=== PATIENT | female | born 1945 | race Caucasian/White ===

== ENCOUNTER 2018-12-02 20:16 | Emergency (ER) | payer BC, MEDICARE ==
[~2018-12-02 20:16] MED LIST: AMA100 PO; ARIP30TA10 PO; BENZ1 PO; BUSP30TA18 PO; CALC-965 PO; CALC600T63 PO; LISI20TA29 PO; MIRT-25 PO; TRAM-627 PO; VENL150T10 PO; VENL75TA98 PO
--- NOTE | 2018-12-02 20:22 | ER Report ---
History and Physical Time Seen By MD: 20:21 HPI/ROS CHIEF COMPLAINT: Depression HISTORY OF PRESENT ILLNESS: 73-year-old female came in by private vehicle from [facility]. She lives in [facility]. She has a history of depression and is on Abilify and Effexor. Patient's managed by telemedicine psychiatrist at a [place]. Patient's brought in by her with 3-4 days of paralyzing depression. She gets out of bed, but sits in a chair all day, has no desire to do anything. Is quite withdrawn. She denies actual suicidal ideation or plan. There is some reports of misuse of her Abilify. Patient, when asked states she's been compliant on her medication not taking any excess or missing any doses. Patient denies drug or alcohol use. Patient has a history of a low sodium. REVIEW OF SYSTEMS: Respiratory: No cough, no dyspnea. Cardiovascular: No chest pain, no palpitations. Gastrointestinal: No vomiting, no abdominal pain. Musculoskeletal: No back pain. Allergies: Coded Allergies: bupropion (Unverified Allergy, Unknown, 12/02/18) Home Meds Reported Medications Meloxicam (MELOXICAM) 7.5 Mg Tablet, 7.5 MG PO QDAY 12/02/18 Levothyroxine Sodium (LEVOTHYROXINE SODIUM) 50 Mcg Tablet, 50 MCG PO QDAY, TAB 12/02/18 Hydrochlorothiazide (HYDROCHLOROTHIAZIDE) 25 Mg Tablet, 1 TAB PO QDAY, TAB 12/02/18 Amantadine Hcl (AMANTADINE) 100 Mg Capsule, 100 MG PO QHS, CAPSULE 10/20/16 Venlafaxine Hcl (VENLAFAXINE HCL ER) 150 Mg Tab.er.24, 150 MG PO QDAY 03/17/14 Buspirone Hcl (BUSPIRONE HCL) 30 Mg Tablet, 30 MG PO TID, #10 TAB TAKE 1 TABLET BY MOUTH TWICE A DAY 03/17/14 Lisinopril (LISINOPRIL) 20 Mg Tablet, 20 MG PO QDAY 03/17/14 Aripiprazole (ABILIFY) 30 Mg Tablet, 20 MG PO QDAY, #10 TAB TAKE 1 TABLET BY MOUTH DAILY 03/17/14 Mirtazapine (MIRTAZAPINE) 30 Mg Tablet, 45 MG PO HS 03/17/14 Discontinued Reported Medications Calcium Carbonate (CALCIUM) 600 Mg Tablet, 600 MG PO QDAY 10/20/16 Calcium Carbonate/Vitamin D3 (CALCIUM 1,000 + D3 CAPLET) 1 Each Tablet, 1 PO 10/20/16 Past Medical/Surgical History Depression, arthritis, hypothyroidism, hypertension Reviewed Nurses Notes: Yes Old Medical Records Reviewed: Yes Hx Smoking: Yes Smoking Status: Former Smoker Hx Substance Use Disorder: No Hx Alcohol Use: No Constitutional Vital Sign - Last 24 Hours 12/02/18 12/02/18 12/02/18 12/02/18 20:16 20:33 20:35 20:46 Temp 98.7 Pulse ??? 108 104 Resp 18 B/P (MAP) 158/98 (118) 158/98 Pulse Ox 91 91 O2 Delivery Room Air 12/02/18 12/02/18 12/02/18 12/02/18 21:00 21:16 21:30 22:16 Pulse 104 96 B/P (MAP) 153/93 (113) 147/91 (109) Pulse Ox 91 95 12/02/18 12/02/18 12/02/18 12/02/18 22:30 22:46 23:00 23:16 Pulse 96 97 B/P (MAP) 143/93 (110) 147/90 (109) Pulse Ox 96 96 Physical Exam General Appearance: The patient is alert, has no immediate need for airway protection and no current signs of toxicity. Withdrawn, quiet HEENT: Pupils equal and round no injection. TMs normal, oropharynx without redness or exudate Respiratory: Chest is non tender, lungs are clear to auscultation. Cardiac: regular rate and rhythm Gastrointestinal: Abdomen is soft and non tender, no masses, bowel sounds normal. Musculoskeletal: Neck: Neck is supple and non tender. Extremities have full range of motion and are non tender. Skin: No rashes or lesions. DIFFERENTIAL DIAGNOSIS: After history and physical exam differential diagnosis was considered for depression including functional and major depression, situational depression, medication side effect, drugs and alcohol abuse. Medical Decision Making Data Points Result Diagram: 12/02/18211112/02/182111 Laboratory Hematology Test 12/02/18 21:12 12/03/18 00:05 Red Blood Count 5.04 M/uL (4.17-5.56) Mean Corpuscular Volume 82.6 fL (80.0-96.0) Mean Corpuscular Hemoglobin 28.6 pg (26.0-33.0) Mean Corpuscular Hemoglobin Concent 34.6 g/dL (32.0-36.0) Red Cell Distribution Width 14.2 % (11.5-14.5) Mean Platelet Volume 7.9 fL (7.2-11.1) Neutrophils (%) (Auto) 67.0 % (39.4-72.5) Lymphocytes (%) (Auto) 17.5 % (17.6-49.6) Monocytes (%) (Auto) 14.5 % (4.1-12.4) Eosinophils (%) (Auto) 0.4 % (0.4-6.7) Basophils (%) (Auto) 0.6 % (0.3-1.4) Nucleated RBC Relative Count (auto) 0.1 /100WBC Neutrophils # (Auto) 7.8 K/uL (2.0-7.4) Lymphocytes # (Auto) 2.0 K/uL (1.3-3.6) Monocytes # (Auto) 1.7 K/uL (0.3-1.0) Eosinophils # (Auto) 0.0 K/uL (0.0-0.5) Basophils # (Auto) 0.1 K/uL (0.0-0.1) Nucleated RBC Absolute Count (auto) 0.01 K/uL Sodium Level 124 mmol/L (137-145) Potassium Level 3.9 mmol/L (3.5-5.0) Chloride Level 87 mmol/L (98-107) Carbon Dioxide Level 23 mmol/L (22-31) Blood Urea Nitrogen 14 mg/dl (7-18) Creatinine 1.00 mg/dl (0.52-1.04) Glomerular Filtration Rate Calc 54.7 Random Glucose 118 mg/dl (75-110) Calcium Level 9.6 mg/dl (8.4-10.2) Magnesium Level 1.5 mg/dl (1.7-2.2) Total Bilirubin 0.5 mg/dl (0.2-1.3) Aspartate Amino Transf (AST/SGOT) 19 U/L (0-35) Alanine Aminotransferase (ALT/SGPT) 21 U/L (0-56) Alkaline Phosphatase 73 U/L (0-126) Total Protein 8.0 g/dl (6.3-8.2) Albumin 4.7 g/dl (3.5-5.0) Salicylates Level < 10 mg/L Salicylate Last Dose Date unk Acetaminophen Level < 10 ug/ml Serum Alcohol < 10 mg/dl Urine Color Yellow Urine Clarity Cloudy Urine pH 6.0 pH (4.8-9.5) Urine Specific [place] 1.016 Urine Protein 30 mg/dL (NEGATIVE) Urine Glucose (UA) Negative mg/dL (NEGATIVE) Urine Ketones 20 mg/dL (NEGATIVE) Urine Blood Large (NEGATIVE) Urine Nitrite Negative (NEGATIVE) Urine Bilirubin Negative (NEGATIVE) Urine Urobilinogen 0.2 mg/dL (0.2-1.9) Urine Leukocyte Esterase Large (NEGATIVE) Urine RBC 307 /HPF (0-2/HPF) Urine WBC 450 /HPF (0-5/HPF) Urine WBC Clumps Many /HPF Urine Squamous Epithelial Cells Many /LPF (</=FEW) Urine Transitional Epithelial Cells Many /LPF (NONE-FEW) Urine Bacteria Negative /HPF (NONE-FEW) Urine Mucus Few /HPF (NONE-FEW) Urine Opiates Screen Negative Urine Barbiturates Screen Negative Ur Tricyclic Antidepressants Screen Negative Urine Phencyclidine Screen Negative Urine Amphetamines Screen Negative Urine Benzodiazepines Screen Negative Urine Cocaine Screen Negative Urine Cannabinoids Screen Negative Chemistry Test 12/02/18 21:12 12/03/18 00:05 White Blood Count 11.7 k/uL (4.5-11.0) Red Blood Count 5.04 M/uL (4.17-5.56) Hemoglobin 14.4 g/dL (12.0-16.0) Hematocrit 41.6 % (34.0-47.0) Mean Corpuscular Volume 82.6 fL (80.0-96.0) Mean Corpuscular Hemoglobin 28.6 pg (26.0-33.0) Mean Corpuscular Hemoglobin Concent 34.6 g/dL (32.0-36.0) Red Cell Distribution Width 14.2 % (11.5-14.5) Platelet Count 213 K/uL (150-450) Mean Platelet Volume 7.9 fL (7.2-11.1) Neutrophils (%) (Auto) 67.0 % (39.4-72.5) Lymphocytes (%) (Auto) 17.5 % (17.6-49.6) Monocytes (%) (Auto) 14.5 % (4.1-12.4) Eosinophils (%) (Auto) 0.4 % (0.4-6.7) Basophils (%) (Auto) 0.6 % (0.3-1.4) Nucleated RBC Relative Count (auto) 0.1 /100WBC Neutrophils # (Auto) 7.8 K/uL (2.0-7.4) Lymphocytes # (Auto) 2.0 K/uL (1.3-3.6) Monocytes # (Auto) 1.7 K/uL (0.3-1.0) Eosinophils # (Auto) 0.0 K/uL (0.0-0.5) Basophils # (Auto) 0.1 K/uL (0.0-0.1) Nucleated RBC Absolute Count (auto) 0.01 K/uL Glomerular Filtration Rate Calc 54.7 Calcium Level 9.6 mg/dl (8.4-10.2) Magnesium Level 1.5 mg/dl (1.7-2.2) Total Bilirubin 0.5 mg/dl (0.2-1.3) Aspartate Amino Transf (AST/SGOT) 19 U/L (0-35) Alanine Aminotransferase (ALT/SGPT) 21 U/L (0-56) Alkaline Phosphatase 73 U/L (0-126) Total Protein 8.0 g/dl (6.3-8.2) Albumin 4.7 g/dl (3.5-5.0) Salicylates Level < 10 mg/L Salicylate Last Dose Date unk Acetaminophen Level < 10 ug/ml Serum Alcohol < 10 mg/dl Urine Color Yellow Urine Clarity Cloudy Urine pH 6.0 pH (4.8-9.5) Urine Specific [place] 1.016 Urine Protein 30 mg/dL (NEGATIVE) Urine Glucose (UA) Negative mg/dL (NEGATIVE) Urine Ketones 20 mg/dL (NEGATIVE) Urine Blood Large (NEGATIVE) Urine Nitrite Negative (NEGATIVE) Urine Bilirubin Negative (NEGATIVE) Urine Urobilinogen 0.2 mg/dL (0.2-1.9) Urine Leukocyte Esterase Large (NEGATIVE) Urine RBC 307 /HPF (0-2/HPF) Urine WBC 450 /HPF (0-5/HPF) Urine WBC Clumps Many /HPF Urine Squamous Epithelial Cells Many /LPF (</=FEW) Urine Transitional Epithelial Cells Many /LPF (NONE-FEW) Urine Bacteria Negative /HPF (NONE-FEW) Urine Mucus Few /HPF (NONE-FEW) Urine Opiates Screen Negative Urine Barbiturates Screen Negative Ur Tricyclic Antidepressants Screen Negative Urine Phencyclidine Screen Negative Urine Amphetamines Screen Negative Urine Benzodiazepines Screen Negative Urine Cocaine Screen Negative Urine Cannabinoids Screen Negative Toxicology Test 12/02/18 21:12 12/03/18 00:05 Salicylates Level < 10 mg/L Salicylate Last Dose Date unk Acetaminophen Level < 10 ug/ml Serum Alcohol < 10 mg/dl Urine Opiates Screen Negative Urine Barbiturates Screen Negative Ur Tricyclic Antidepressants Screen Negative Urine Phencyclidine Screen Negative Urine Amphetamines Screen Negative Urine Benzodiazepines Screen Negative Urine Cocaine Screen Negative Urine Cannabinoids Screen Negative Urinalysis Test 12/03/18 00:05 Urine Color Yellow Urine Clarity Cloudy Urine pH 6.0 pH (4.8-9.5) Urine Specific [place] 1.016 Urine Protein 30 mg/dL (NEGATIVE) Urine Glucose (UA) Negative mg/dL (NEGATIVE) Urine Ketones 20 mg/dL (NEGATIVE) Urine Blood Large (NEGATIVE) Urine Nitrite Negative (NEGATIVE) Urine Bilirubin Negative (NEGATIVE) Urine Urobilinogen 0.2 mg/dL (0.2-1.9) Urine Leukocyte Esterase Large (NEGATIVE) Urine RBC 307 /HPF (0-2/HPF) Urine WBC 450 /HPF (0-5/HPF) Urine WBC Clumps Many /HPF Urine Squamous Epithelial Cells Many /LPF (</=FEW) Urine Transitional Epithelial Cells Many /LPF (NONE-FEW) Urine Bacteria Negative /HPF (NONE-FEW) Urine Mucus Few /HPF (NONE-FEW) ED Course/Re-evaluation ED Course Patient was admitted to an examination room. H&P was done. The differential diagnoses was considered. Patient with severe profound depression. Brought in by her from [place]. Patient requesting admission to [facility] for her depression. Patient's sodium is low at 124. She has a history of a low sodium likely secondary to her HCTZ. Patient's Urinalysis shows infection. 12/02/2018 10:12:22 pm case was discussed with Valarie Botello nurse practitioner a behavioral health service who accepts the patient for admission. Decision to Disposition Date: Dec 02, 2018 Decision to Disposition Time: 21:44 Depart Departure Latest Vital Signs Vital Signs Date Time Temp Pulse Resp B/P (MAP) Pulse Ox O2 Delivery O2 Flow Rate FiO2 12/02/18 23:16 97 96 12/02/18 23:00 147/90 (109) 12/02/18 20:35 98.7 18 Room Air Impression: Primary Impression: Severe depression Additional Impressions: Hyponatremia Hypertension Hypothyroidism Osteoarthritis Urinary tract infection Condition: Improved Disposition: XFER TO [facility] Problem Qualifiers Additional Impressions: Hypertension Hypertension type: essential hypertension Qualified Codes: I10 - Essential (primary) hypertension Hypothyroidism Hypothyroidism type: unspecified Qualified Codes: E03.9 - Hypothyroidism, unspecified Osteoarthritis Osteoarthritis location: unspecified site Osteoarthritis type: primary Qualified Codes: M19.91 - Primary osteoarthritis, unspecified site Urinary tract infection Urinary tract infection type: acute cystitis Hematuria presence: without hematuria Qualified Codes: N30.00 - Acute cystitis without hematuria KEVIN ZAMORA DO Dec 02, 2018 20:22
[2018-12-02] MEDS ORDERED: HYDR-2966 PO (20:28)
[2018-12-02] MEDS ORDERED: MELO-205 PO (20:28)
[2018-12-02] MEDS ORDERED: LEVO50TA86 PO (20:28)
[2018-12-02 21:28] LABS: PLATELET COUNT, AUTOMATED 213 K/uL (150-450)
[2018-12-02 23:00] VITALS: BP 147/90
== END 2018-12-03 00:07 ==
LOC: ER 20:28
DX: F32.9 Major depressive disorder, single episode, unspecified (principal); E87.1 Hypo-osmolality and hyponatremia; I10 Essential (primary) hypertension; E03.9 Hypothyroidism, unspecified; M19.91 Primary osteoarthritis, unspecified site; N30.00 Acute cystitis without hematuria
CPT/HCPCS: 36415; 80305; 81001; 83735; 84443; 85025; 99284; G0480; 80320; 80329; 82040; 82247; 82310; 82374; 82435; 82565; 82947; 84075; 84132; 84155; 84295; 84450; 84460; 84520

== ENCOUNTER 2018-12-02 22:15 | Inpatient (IN) | payer BC, MEDICARE ==
[~2018-12-02] VITALS: Ht 162.6 cm; Wt 68.0 kg
[~2018-12-02 22:15] MED LIST changes: +HYDR-2966 PO; +LEVO50TA86 PO; +MELO-205 PO
[2018-12-02] MEDS ORDERED: ACETAMINOPHEN 325 MG TAB PO PRN (23:30)
[2018-12-02] MEDS ORDERED: MAG HYD/AL HYD/SIMETH 30ML UDC PO PRN (23:30)
[2018-12-03 02:33] VITALS: BP 147/93
[2018-12-03] MEDS: LEVOTHYROXINE SOD 0.05 MG TAB PO SCH (05:24)
[2018-12-03 06:40] LABS: PLATELET COUNT, AUTOMATED 210 K/uL (150-450)
--- NOTE | 2018-12-03 07:30 | Miscellaneous Provider Note ---
Miscellaneous Provider Note Note Asked to review labs (UA and sodium) by Valarie HERRERA. She appears to have UTI. Will have lab culture the urine and empirically start Cipro 250mg one PO BID for 3 days. She also has sodium of 122. She has been on a diuretic, which would be the initial most likely cause. Would recommend stopping the HCTZ and using el ectrolyte replacement fluid such as Gatorade or Pedialyte. Recheck BMP in 12-24 hours. If persistently low, may need to consider possible SIADH related to her FLEXIBLE NANNY active medications. NASREEN CALLES MD Dec 03, 2018 07:30
[2018-12-03] MEDS: CIPROFLOXACIN 500 MG TAB PO SCH ×2 (08:51→16:31)
[2018-12-03] MEDS: MULTIVITAMINS TAB PO SCH (09:00)
[2018-12-03] MEDS ORDERED: VENLAFAXINE REG 75 MG TAB PO ONE (12:50)
[2018-12-03 13:00] VITALS: BP 142/100
[2018-12-03] MEDS: LISINOPRIL 20 MG TAB PO SCH (13:43)
[2018-12-03] MEDS: ARIPiprazole 10 MG TAB PO SCH (13:43)
[2018-12-03] MEDS: busPIRone HCL 5 MG TAB PO SCH ×2 (13:43→20:59)
[2018-12-03] MEDS: MELOXICAM 7.5 MG TAB PO SCH (15:44)
--- NOTE | 2018-12-03 16:39 | EKG ---
FACILITY: [facility] - [place], [place] PATIENT NAME: ROSALIO ROSAS : [id number] MR: [id number] V: [id number] EXAM DATE: ORDERING PHYSICIAN: ELPIDIO ELDRIDGE TECHNOLOGIST: Test Reason : Critical NA Blood Pressure : / mmHG Vent. Rate : 093 BPM Atrial Rate : 093 BPM P-R Int : 174 ms QRS Dur : 092 ms QT Int : 366 ms P-R-T Axes : 068 053 063 degrees QTc Int : 455 ms Sinus rhythm No acute appearing findings Confirmed by NASREEN CALLES ([id number] on 12/03/2018 6:03:57 PM Referred By: Confirmed By:NASREEN CALLES
[2018-12-03 16:42] VITALS: BP 138/90
[2018-12-03] MEDS ORDERED: AMANTADINE HCL 100 MG CAP PO SCH (21:00)
[2018-12-03] MEDS ORDERED: MIRTAZAPINE 15 MG TAB PO SCH (21:00)
[2018-12-03] MEDS ORDERED: traZODone HCL 50 MG TAB PO SCH (21:00)
--- NOTE | 2018-12-04 02:46 | ROMSA H&P ---
DATE OF ADMISSION: December 02, 2018 DATE OF INITIAL PSYCHIATRIC INTERVIEW: December 03, 2018, at approximately 11 a.m. ATTENDING PROVIDER Valarie Botello, Psychiatric Mental Health Nurse Practitioner PRESENTING PROBLEM/CHIEF COMPLAINT "I'm just sad." HISTORY OF PRESENT ILLNESS This patient is a 73-year-old female who came in to the emergency department by private vehicle from [place], [place], having been brought in by her of nine years. She has a known history of depression and is currently managed psychiatrically by Dr. Rausch, whom she sees through telemedicine out of [place], [place]. Her spouse states that she has been on psychiatric medications approximately 20 [address] Rausch for approximately the last nine years. Per emergency room documentation, patient was brought in by her due to three to four days of "paralyzing depression." Spouse reports that she gets out of bed but sits in a chair all day, has no desire to do anything, and is quite withdrawn. She has denied suicidal ideation or plans. Patient is also hyponatremic in the emergency department and has a history of low sodium as well as hypothyroidism and hypertension. At the time of initial interview, patient is oriented to person and place. She is disoriented to date and situation. Patient is unable to rate her depression, although states, "I'm just sad." She is tearful and appears afraid during her initial interview. When asked about anxiety, she states, "It's what I'm going through." She denies pain. She reports that her sleep is sufficient. She denies nightmares, denies history of staying up for days on end with impulsive behavior. She denies history of hearing or seeing things, denies history of paranoia. Her states that she normally sleeps eight to 10 hours without interruption. He reports that she has been prescribed Venlafaxine, BuSpar, Abilify, and Mirtazapine most recently. He states that he does offer some assistance with her medications, although she primarily takes them independently. There was some documentation from the emergency room that she has possibly misused her Abilify. Patient and also her spouse deny this. When asked about what medication she is taking, patient states she is not sure. This provider does have phone consultation with spouse following initial interview with patient, ZULMA has been signed, and it is encouraged that a medication box would be set up and that he would manage administering her medications during this state of confusion. Patient's spouse said that at times she can become confused at home, but it is not typical for her to be confused. Patient and her are both retired and live in a home in [place], [place], together. Patient is agreeable with a voluntary admission for further evaluation and treatment on the Behavioral Health Unit. MENTAL HEALTH HISTORY The patient has never been an inpatient on the psychiatric unit. She denies history of self-harm behaviors or suicide attempts. Patient's spouse states that she is a "devout Taoism" and does not agree with anyone harming themselves in any way. Spouse reports that she has a 20-year history of taking psychotropics. She is currently taking venlafaxine 150 mg, one p.o. daily; BuSpar 30 mg twice daily; Abilify 30 mg, one p.o. daily and Mirtazapine 45 mg po every pm. She is also prescribed levothyroxine 50 mcg, one p.o. daily; hydrochlorothiazide 25 mg p.o. daily, which she has been discouraged to continue due to her hyponatremia; amantadine 100 mg, one p.o. at bedtime, as well as meloxicam 7.5 mg, one p.o. daily. She has been engaged with psychiatric medication management through [facility] out of [place], [place]. She is seen through a [facility]. She is currently not engaged in individual psychotherapy. She denies history of counseling. FAMILY PSYCHIATRIC HISTORY Uncertain of. Spouse denies knowledge of any family psychiatric history. PAST MEDICAL HISTORY Significant for appendectomy, total hysterectomy, tonsillectomy. No history of seizures, head injuries, or other major health concerns. She is currently taking antihypertensives with known history of hypertension, hypothyroidism, and arthritis. Current hyponatremia and previous history as well. SOCIAL HISTORY The patient is currently living in [place], [place], with her of nine years, whose name is Yonatan. She is assigned a release of information in order that communication can be completed with him, and she is agreeable to this. She has been to her current , Yonatan, for nine years. She was previously and . She has one son living in [place] she reports she has no contact with, although the spouse reports they frequently visit. She has one sister living in [place], one sister living in [place]. She was born in [place], [place]. Her parents were at the time of her and later . Her mother is still alive and living in [place]. She is 89 years old, and spouse reports she remains quite active. 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 Her is retired from the [employer] in 2009, and he assists at times with her medications. She reports she had a good childhood free of abuse. LEGAL HISTORY She denies. SUBSTANCE ABUSE HISTORY Patient denies that she is a smoker. She rarely drinks alcohol, denies use of illicit substances now or in the past. PHYSICAL EXAMINATION Please see emergency room notes for physical exam. Vital signs at time of admission including temperature 97.6, pulse 98, respiratory rate 15, blood pressure 147/93, pulse oximetry 98% on room air. LABORATORY DATA CBC within normal limits. Lymphocyte percent 17.3, low; monocyte percent elevated, 16.8. Chemistry panel with critical sodium of 122, critical chloride of 85, random glucose 117, magnesium 1.8. Initial emergency room triage sodium of 124. Thyroid stimulating hormone is pending. Urine screen cloudy, high amounts of ketone at 20, large amount of leukocyte esterase, many squamous epithelial cells, many transition epithelial cells, negative for bacteria, few mucus. Toxicology includes salicylate, acetaminophen, serum alcohol levels less than 10. Urine screen negative for opiates, barbiturates, tricyclics, phencyclidine, amphetamines, benzodiazepines, cocaine and cannabinoids. MENTAL STATUS EXAMINATION GENERAL APPEARANCE, BEHAVIOR AND ATTITUDE: Patient is anxious and tearful at time of initial interview. She is able to independently ambulate with minimal assist to the treatment team room for interview. She appears slightly disheveled and fearful. SPEECH: Soft-spoken. Limited responses. Regular rate and tone. MOOD: Depressed. AFFECT: Slightly constricted, mood-congruent. THOUGHT PROCESSES: Fairly logical, able to respond. Limited responses. No flight of ideas. THOUGHT CONTENT: Free of auditory or visual hallucinations, ideas of reference, thought broadcasting, delusions, obsessions or compulsions. Patient denying suicidal or homicidal ideations. SENSORIUM: Clear. COGNITION: Alert and oriented to person, place; disoriented to time and situation. MEMORY: Immediate, recent and remote slightly impaired. Patient gives partially accurate history with some conflicting answers compared to her spouse's history. She is unable to remember what circumstances brought her to the emergency department. INTELLIGENCE: Average, based on interview. INSIGHT AND JUDGMENT: Considered limited, as patient unable to remember circumstances which warranted her spouse driving her to the emergency room for evaluation. ASSESSMENT This is a 73-year-old female who was brought by private vehicle to the emergency room from [place], [place], where she lives with her of nine years. He reports that he brought her to the emergency room "mostly for medical concerns, because I didn't think the meds were working good." He reports that she has had lack of energy and has become more depressed during the last week. He assist wit her medication administration at times, although primarily she takes these medications independently. It is encouraged that she have assistance with her medications, as she is unable to report to this provider what she takes or for what health condition. She is managed psychiatrically by a [facility] out of [place], [place], seen at a [facility]. She is managed for medical conditions by a Dr. Amador, whom she has seen in [place], [place], with a history of hypothyroidism and hypertension. It is thought that her hydrochlorothiazide could be contributing to her hyponatremia. The hospitalist was consulted regarding her hyponatremia, with recommendation of discontinuing hydrochlorothiazide and encouraging Gatorade. We will also obtain culture and sensitivity on her urine, and she was started on antibiotics by the hospitalist of ciprofloxacin 250 mg, one p.o. daily for suspected urinary tract infection. DIAGNOSES PER DSM-V 1. Major depressive disorder, recurrent, moderate to severe. 2. Rule out delirium secondary to current urinary tract infection. 3. Hyponatremia. PLAN 1. Will admit to the unit. 2. Necessary precautions will be implemented. 3. Individual and group therapy to be initiated. 4. Medications will be administered and titrated accordingly. 5. Further labs and imaging as appropriate. 6. Estimated length of stay three to five days. 7. Hospitalist was consulted regarding her hyponatremia and urinary tract infection with recommendations provided. 8. Continue to obtain collateral information from spouse with ongoing discharge planning regarding safety of medication administration and psychiatric medication management followup through her outpatient providers. 9. We will maintain fall precautions and close monitoring of her laboratory data, vital signs, and evaluate current psychiatric medications. [facility]
[2018-12-04 05:56] VITALS: BP 124/89
[2018-12-04] MEDS: LEVOTHYROXINE SOD 0.05 MG TAB PO SCH (06:00)
[2018-12-04] MEDS ORDERED: LEVOTHYROXINE SOD 0.05 MG TAB PO SCH (06:00)
[2018-12-04 06:18] LABS: PLATELET COUNT, AUTOMATED 214 K/uL (150-450)
[2018-12-04] MEDS: CIPROFLOXACIN 500 MG TAB PO SCH (07:55)
[2018-12-04] MEDS: ARIPiprazole 10 MG TAB PO SCH (08:42)
[2018-12-04] MEDS: MELOXICAM 7.5 MG TAB PO SCH (08:42)
[2018-12-04] MEDS: MULTIVITAMINS TAB PO SCH (08:42)
[2018-12-04] MEDS: busPIRone HCL 5 MG TAB PO SCH (08:42)
[2018-12-04] MEDS: LISINOPRIL 20 MG TAB PO SCH (08:42)
[2018-12-04] MEDS ORDERED: SODIUM CHLORIDE 1 GR TAB PO SCH (09:00)
[2018-12-04] MEDS ORDERED: VENLAFAXINE REG 75 MG TAB PO SCH (09:00)
[2018-12-04 10:01] VITALS: BP 138/90
[2018-12-04 13:45] VITALS: BP 159/94
--- NOTE | 2018-12-04 13:57 | BHS Discharge Summary ---
[facility] Discharge Summary Iiic-hk-Kvrb Encounter Date: Dec 04, 2018 Mwpw-[id number]-[id number] Encounter Time: 10:00 Reason-Hosp/Final Diag (DSM-V): (1) Hyponatremia Status: Acute Hospital Course & Plan: Pt was admitted voluntarily to [facility] for depression-- said for past several weeks she would just sit and stare all day. Pt does have hx of depression and as outpatient she was taking venlafaxine, buspirone, abilify, amantadine, mirtazapine, as well as HCTZ and lisinopril. On admission her Na was low at 124, and over a day and a half it dropped to 113. We were in touch with Medicine service throughout, and she was transferred semi- urgently to ICU per Dr. Carbone due to hyponatremia. 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 Of note, reported that about 6 years ago as outpatient she had a similar episode of hyponatremia, treated by water restriction-- he says that at that time she had a similar altered mental status as well. Physical Exam Latest Vital Signs Vital Signs 12/03/18 12/04/18 12/04/18 16:42 10:01 13:29 Temp 97.9 Pulse 84 Resp 18 B/P (MAP) 138/90 (106) Pulse Ox 98 O2 Delivery Room Air Mental Status Exam General Appearance: Casual, Good Eye Contact, Cooperative, Polite, Good Interaction Speech: Clear, Spontaneous, Normal Rate, Normal Tone Mood: Dysthmic/Depressed Affect: Calm, Flat Thought Process: Organized, Logical, Goal Directed Thought Content: No Suicidal Ideation, No Homicidal Ideation, No Delusions, No Auditory Halllucinations, No Visual Hallucinations, No Thought Broadcasting, No Ideas of Reference, No Obsessions, No Compulsions, No Other Sensorium: Clear Cognition: Alert & Oriented-Person, Alert & Oriented-Place; No Alert & Issa ented-Time, No Egwlx-Tcikoilx-Pvxzckdur, No Other Memory: Remote Intelligence: Average Insight Judgment: Fair Departure Result Diagram: 12/04/18 0551 12/04/18 5343 Condition: No Change Discharge to: Other Facility (to [facility]) Discharge Instructions Home Meds Reported Medications Meloxicam (MELOXICAM) 7.5 Mg Tablet, 7.5 MG PO QDAY 12/02/18 Levothyroxine Sodium (LEVOTHYROXINE SODIUM) 50 Mcg Tablet, 50 MCG PO QDAY, TAB 12/02/18 Hydrochlorothiazide (HYDROCHLOROTHIAZIDE) 25 Mg Tablet, 1 TAB PO QDAY, TAB 12/02/18 Amantadine Hcl (AMANTADINE) 100 Mg Capsule, 100 MG PO QHS, CAPSULE 10/20/16 Venlafaxine Hcl (VENLAFAXINE HCL ER) 150 Mg Tab.er.24, 150 MG PO QDAY 03/17/14 Buspirone Hcl (BUSPIRONE HCL) 30 Mg Tablet, 30 MG PO TID, #10 TAB TAKE 1 TABLET BY MOUTH TWICE A DAY 03/17/14 Lisinopril (LISINOPRIL) 20 Mg Tablet, 20 MG PO QDAY 03/17/14 Aripiprazole (ABILIFY) 30 Mg Tablet, 20 MG PO QDAY, #10 TAB TAKE 1 TABLET BY MOUTH DAILY 03/17/14 Mirtazapine (MIRTAZAPINE) 30 Mg Tablet, 45 MG PO HS 03/17/14 Discontinued Reported Medications Calcium Carbonate (CALCIUM) 600 Mg Tablet, 600 MG PO QDAY 10/20/16 Calcium Carbonate/Vitamin D3 (CALCIUM 1,000 + D3 CAPLET) 1 Each Tablet, 1 PO 10/20/16 Multpiple Antipsychotics Used: No Diet: Regular Activity: As Tolerated Special Instructions: Transfer to Intensive Care Unit at [facility] for Critically Low Sodium/Hyponatremia. CLAIRE PALACIOS MD Dec 04, 2018 13:57
== END 2018-12-04 14:38 | disposition still patient (30) | DRG 885 ==
LOC: UNDOADMIN 22:15 → BHS 22:15
PROVIDERS: ADMIT Nurse Practitioner Psychiatric/Mental Health; ATTEND Nurse Practitioner Psychiatric/Mental Health
DX: F33.2 Major depressive disorder, recurrent severe without psychotic features (principal); E22.2 Syndrome of inappropriate secretion of antidiuretic hormone; R45.851 Suicidal ideations; N30.00 Acute cystitis without hematuria; E03.9 Hypothyroidism, unspecified; I10 Essential (primary) hypertension; T50.2X5A Adverse effect of carbonic-anhydrase inhibitors, benzothiadiazides and other diuretics, initial encounter; Z90.710 Acquired absence of both cervix and uterus; Z88.8 Allergy status to other drugs, medicaments and biological substances
CPT/HCPCS: 36415; 81001; 82040; 82247; 82310; 82374; 82435; 82565; 82947; 83735; 83935; 84075; 84132; 84155; 84295; 84300; 84450; 84460; 84520; 85025; 87077; 87088; 87186; 93005; G9017

== ENCOUNTER 2018-12-04 14:38 | Inpatient (IN) | payer BC, MEDICARE ==
[2018-12-04] VITALS (8 sets, daily range): BP systolic 134–150; BP diastolic 87–123
[~2018-12-04] VITALS: Ht 154.9 cm; Wt 93.5 kg
[2018-12-04] MEDS ORDERED: NS 3% 500 ML BAG 100 ML IV ONE (16:30)
--- NOTE | 2018-12-04 16:36 | History & Physical ---
History of Present Illness History of Present Illness 73yo female with a h/o hyponatremia and depression who sent from [facility] for a low sodium. She was admitted to [facility] on the evening of 12/02 for 3-4 days of severe depression. She, reportedly, had a low sodium about 6 years ago and had be be treated with water restriction. She altered mental status at the time. She then has had low sodium since then, but it is unclear what the values have been. It is unclear if she is on any new medication as an outpatient. Her sodium on admission was 124 and it has steadily decreased. This morning it was 120, then 7 hours later it went down to 113. She denies n/v/vision changes/diarrhea/cp/sob/chills/dizziness. She is more confused this morning per Dr. Andrea. The patient was started on Ciprofloxacin on 12/03 for a UTI and has received 3 doses. Her usual medications of venlafaxine, BuSpar, Abilify, and mirtazapine were continued, but HCTZ was stopped. There were no reports of excessive water intake while on [facility]. History Problems: (1) History of appendectomy (2) History of hysterectomy (3) Severe depression Status: Acute (4) Hypertension Status: Chronic (5) Hypothyroidism Status: Acute Home Meds Reported Medications Levothyroxine Sodium (LEVOTHYROXINE SODIUM) 50 Mcg Tablet, 50 MCG PO QDAY, TAB 12/02/18 Lisinopril (LISINOPRIL) 20 Mg Tablet, 20 MG PO QDAY 03/17/14 Discontinued Reported Medications Meloxicam (MELOXICAM) 7.5 Mg Tablet, 7.5 MG PO QDAY 12/02/18 Hydrochlorothiazide (HYDROCHLOROTHIAZIDE) 25 Mg Tablet, 1 TAB PO QDAY, TAB 12/02/18 Amantadine Hcl (AMANTADINE) 100 Mg Capsule, 100 MG PO QHS, CAPSULE 10/20/16 Venlafaxine Hcl (VENLAFAXINE HCL ER) 150 Mg Tab.er.24, 150 MG PO QDAY 03/17/14 Buspirone Hcl (BUSPIRONE HCL) 30 Mg Tablet, 30 MG PO TID, #10 TAB TAKE 1 TABLET BY MOUTH TWICE A DAY 03/17/14 Aripiprazole (ABILIFY) 30 Mg Tablet, 20 MG PO QDAY, #10 TAB TAKE 1 TABLET BY MOUTH DAILY 03/17/14 Mirtazapine (MIRTAZAPINE) 30 Mg Tablet, 45 MG PO HS 03/17/14 Calcium Carbonate (CALCIUM) 600 Mg Tablet, 600 MG PO QDAY 10/20/16 Calcium Carbonate/Vitamin D3 (CALCIUM 1,000 + D3 CAPLET) 1 Each Tablet, 1 PO 10/20/16 Allergies: Coded Allergies: bupropion (Unverified Allergy, Unknown, 12/02/18) Other Social/Family Hx Lives in [place]. Is . One son. Remote tobacco hx for about 40 years. No current alcohol or illlicit drug use. Hx Smoking: No Smoking Status: Never Smoker Exposure to Second Hand Smoke?: No Hx Alcohol Use: No Hx Substance Use Disorder: No Social Drug Use: Never Review of Systems All Systems Reviewed/Normal: Yes, Except as Noted Exam General Appearance: Alert, Awake, No Acute Distress, Other (Calm. Pleasant. Cooperative.) Neuro: Other (No focal motor or sensory deficits. She knows that she is in [facility], but doesn't know year, month or why she is in the hospital.) Eyes: PERRLA ENT: Moist Mucous Membranes Cardiovascular: Regular Rate and Rhythm Respiratory: Clear to Auscultation GI: Abd Soft and Non-Tender Extremities: No Edema Integumentary: No Jaundice, No Cyanosis Medical Decision Making Data Points Item Value Date Time Sodium Level 122 mmol/L *L 12/03/18 0621 Sodium Level 120 mmol/L *L 12/04/18 0551 Sodium Level 113 mmol/L *L 12/04/18 1245 Blood Urea Nitrogen 14 mg/dl 12/03/18 0621 Creatinine 1.00 mg/dl 12/03/18 0621 Blood Urea Nitrogen 17 mg/dl 12/04/18 0551 Creatinine 1.50 mg/dl H 12/04/18 0551 Blood Urea Nitrogen 16 mg/dl 12/04/18 1245 Creatinine 1.30 mg/dl H 12/04/18 1245 Aspartate Amino Transf (AST/SGOT) 18 U/L 12/03/18 0621 Alanine Aminotransferase (ALT/SGPT) 24 U/L 12/03/18 0621 Total Bilirubin 0.6 mg/dl 12/03/18 0621 Total Bilirubin 0.6 mg/dl 12/04/18 0551 Aspartate Amino Transf (AST/SGOT) 20 U/L 12/04/18 0551 Alanine Aminotransferase (ALT/SGPT) 28 U/L 12/04/18 0551 Alkaline Phosphatase 58 U/L 12/04/18 0551 Alkaline Phosphatase 67 U/L 12/03/18 0621 White Blood Count 11.7 k/uL H 12/02/182111 White Blood Count 8.6 k/uL 12/03/18 0621 Neutrophils (%) (Auto) 67.0 % 12/02/182111 Neutrophils (%) (Auto) 64.8 % 12/03/18620 Neutrophils (%) (Auto) 60.4 % 12/04/18 0551 White Blood Count 9.2 k/uL 12/04/18 0551 Hemoglobin 14.3 g/dL 12/04/18 0551 Hemoglobin 14.7 g/dL 12/03/18620 Hemoglobin 14.4 g/dL 12/02/182111 Platelet Count 213 K/uL 12/02/182111 Platelet Count 210 K/uL 12/03/1821 Platelet Count 214 K/uL 12/04/18 0551 Serum Alcohol < 10 mg/dl 12/02/182111 Salicylates Level < 10 mg/L 12/02/182111 Acetaminophen Level < 10 ug/ml 12/02/182111 Urine Opiates Screen Negative 12/03/18 0005 Urine Barbiturates Screen Negative 12/03/18 0005 Ur Tricyclic Antidepressants Screen Negative 12/03/18 0005 Urine Phencyclidine Screen Negative 12/03/18 0005 Urine Amphetamines Screen Negative 12/03/18 0005 Urine Benzodiazepines Screen Negative 12/03/18 0005 Urine Cocaine Screen Negative 12/03/18 0005 Urine Cannabinoids Screen Negative 12/03/18 0005 Thyroid Stimulating Hormone (TSH) 2.11 uIU/ml 12/02/182111 Sodium Level 124 mmol/L *L 12/02/182111 Blood Urea Nitrogen 14 mg/dl 12/02/182111 Creatinine 1.00 mg/dl 12/02/182111 Magnesium Level 1.5 mg/dl L 12/02/182111 Total Bilirubin 0.5 mg/dl 12/02/182111 Aspartate Amino Transf (AST/SGOT) 19 U/L 12/02/182111 Alanine Aminotransferase (ALT/SGPT) 21 U/L 12/02/18 2112 Alkaline Phosphatase 73 U/L 12/02/18 2112 Urine Leukocyte Esterase Large H 12/03/18 0005 Urine Leukocyte Esterase Moderate H 12/03/18 1430 Urine RBC 10 /HPF 12/03/18 1430 Urine WBC 36 /HPF 12/03/18 1430 Urine WBC 450 /HPF 12/03/18 0005 Urine RBC 307 /HPF 12/03/18 0005 Urine Squamous Epithelial Cells Many /LPF H 12/03/18 0005 Urine Squamous Epithelial Cells Many /LPF H 12/03/18 1430 Urine Blood Large 12/03/18 0005 Urine Blood Small 12/03/18 1430 Urine Ketones 20 mg/dL H 12/03/18 1430 Urine Ketones 20 mg/dL H 12/03/18 0005 EKG / Imaging EKG Interpretation Vent. Rate : 093 BPM Atrial Rate : 093 BPM P-R Int : 174 ms QRS Dur : 092 ms QT Int : 366 ms P-R-T Axes : 068 053 063 degrees QTc Int : 455 ms Sinus rhythm No acute appearing findings Confirmed by NASREEN CALLES ([id number]) on 12/03/2018 6:03:57 PM Assessment and Plan Problems: (1) Hyponatremia Status: Acute Assessment & Plan: She presented with a sodium on 124 in the evening of 12/02. 120 this morning and then dropped to 113 in 7 hours. She was more confused today. She has been transferred to the ICU because of the severe drop in sodium. Certainly, SSRI and HCTZ are contributing, but it is unclear why she is having problems now. Will try to discuss with her about new medications. Currently, all medications have been stopped, but did receive Abilify, Buspar, Meloxicam and Ciprofloxacin this morning. Last night, she received, amantadine, Buspar, Remeron and Trazodone. She has been ordered 3% saline 100cc over about 3 hours. Seizure precautions have been instituted. BMP in about an hour and will follow sodium closely. She has been fluid restricted to 1500cc. Urine sodium, urine osmolality are pending from [facility] admission. (2) ARF (acute renal failure) Status: Acute Assessment & Plan: Creatinine was 1.0, but increased to 1.5 this morning. Creatinine decreased to 1.3 this afternoon. Possibly secondary to Mobic addition. Stop Mobic and Lisinopril and follow. (3) Severe depression Status: Acute Assessment & Plan: Pt was admitted voluntarily to [facility] for depression-- said for past several weeks she would just sit and stare all day. Pt does have hx of depression and as outpatient she was taking venlafaxine, buspirone, Abilify, amantadine, and mirtazapine. Currently, all of those medications are stopped. (4) Hypertension Status: Chronic Assessment & Plan: Chronically on lisinopril. Will hold for now because of the ARF. BP mildly elevated. Venous Thromboembolism Antithrombotics Is Pt On Any Antithrombotics?: No HEIDY WALKER MD Dec 04, 2018 16:36
[2018-12-04] MEDS ORDERED: LIDOCAINE/SOD BICARB 8.4% SYR ONE (16:57)
[2018-12-04] MEDS: MELATONIN 3 MG TAB PO SCH (21:02)
[2018-12-04] MEDS ORDERED: NS 3% IV ONE (22:10)
[2018-12-05] VITALS (12 sets, daily range): BP systolic 113–151; BP diastolic 66–87
[2018-12-05] MEDS ORDERED: NS 3% IV ONE (01:50)
[2018-12-05 05:08] LABS: PLATELET COUNT, AUTOMATED 204 K/uL (150-450)
[2018-12-05] MEDS: LEVOTHYROXINE SOD 0.05 MG TAB PO SCH (06:29)
[2018-12-05] MEDS ORDERED: NS 3% 500 ML BAG 500 ML IV ONE (08:15)
--- NOTE | 2018-12-05 08:58 | Hospitalist Progress Note ---
Subjective Progress Notes Subjective This patient was admitted for hyponatremia. She had no acute events overnight. Patient Complains of: Cardiovascular: No: Chest Pain Respiratory: No: Shortness of Breath Physical Exam Vital Signs Date Time Temp Pulse Resp B/P (MAP) Pulse Ox O2 Delivery O2 Flow Rate FiO2 12/05/18 06:00 86 24 135/83 (100) 92 Nasal Cannula 0.5 12/05/18 04:00 97.7 Intake and Output 12/05/18 07:00 Output Total 1000 ml Balance -1000 ml Output Urine Total 1000 ml # Voids 2 Neuro: No Gross deficits Cardiovascular: Regular Rate and Rhythm Respiratory: Clear to Auscultation Result Diagram: 12/05/1843612/05/18436 Assessment and Plan Problems: (1) Hyponatremia Status: Acute Assessment & Plan: Her sodium was noted to be severely low. She received a few boluses of hypertonic saline, but remains low this morning. We will start an infusion of hypertonic saline and repeat levels later today. (2) ARF (acute renal failure) Status: Acute Assessment & Plan: We have stopped her NSAID and lisinopril. (3) Severe depression Status: Acute Assessment & Plan: Pt was admitted voluntarily to [facility] for depression. [facility] once her acute medical issues have resol eunice. (4) Hypertension Status: Chronic Assessment & Plan: Her lisinopril has been stopped as above. Exam Sepsis Risk: No Definite Risk ALISSON YO DO Dec 05, 2018 08:58
--- NOTE | 2018-12-05 10:03 | Medical Nutrition Therapy ---
Nutrition Anthropometrics Height (Inches): 61.00 Height (Calculated Centimeters: 154.540386 Weight (Pounds): 206 Weight (Calculated Kilograms): 93.500 BMI: 38.9 Sameer Nutrition Score: Adequate Sameer Nutrition Risk Score: 20 Dietary Referral Nutrition Risk Factors: Nutrition Risk Comment: Physical Findings Physical Appearance: Obese BMI 30-39 Skin Appearance Skin Appearance: Edema Edema Location Modifier: Both Edema Location: Foot Type of Edema: Degree of Edema: Gastrointestinal Symptoms GI Symtoms: Tube Present: Bowel Sounds: Recent Bowel Pattern: Stool Characteristics: Nutritional Diagnosis Nutritional Risk Acuity 1: Acute/ES Renal Nutritional Acuity: 1-High Nutrition Diagnosis: Increased Nutrient Needs Nutrition Etiology: Physiological Causes Nutrition Problem/Etiology/Sym: decreased fluid needs r/t dx Hyponatremia AEB serum NA 115. Adjusted Energy Requirement Re: 1870 (20kcal/kg) Protein Requirement: 74 (.8gm/kg) Fluid Requirement: 1870 (20ml/kg) Diet Type: Fluid Restricted Nutrition Intervention: Cont diet as ordered, Encourage intake Nutrition Monitoring & Eval Nutrition Goals: Eat 75-100% Meal, Fluid Restrictions RD Patient Assessment Time: [address] Assessment Type: RD Assessment Patient Nutrition Acuity: 1-High Follow Up Date: December 08, 2018 Nutritional Comment: 12/05 Pt admitted for Hyponatremia and ARF. Na 115, alb 3.8. BUN & creatinine is now WNR. Pt is on fluid restricted diet but no intake reported at this time. Will cont to monitor and encouage intake. ELPIDIO DIEHL Dec 05, 2018 10:03
[2018-12-05] MEDS ORDERED: INFLUENZA VIRUS VAC 0.5ML SYR IM ONLY ONE (15:35)
[2018-12-05] MEDS: MELATONIN 3 MG TAB PO SCH (21:00)
[2018-12-06] VITALS (8 sets, daily range): BP systolic 104–121; BP diastolic 48–94
[2018-12-06] MEDS: LEVOTHYROXINE SOD 0.05 MG TAB PO SCH (05:37)
[2018-12-06] MEDS ORDERED: VENLAFAXINE XR 75 MG CAPCR PO SCH (09:00)
[2018-12-06] MEDS ORDERED: ARIPiprazole 10 MG TAB PO SCH (09:00)
--- NOTE | 2018-12-06 11:54 | Psychiatric Consult ---
History of Present Illness Requesting Physician Dr. Wilma Zarate Reason for Consult: Psychiatric Illness Reason for Consult hyponatremia, advice re psych meds History of Present Illness 73 y/o admitted to psychiatry for depression but found to have critically low Na and transferred to ICU, sodium now correcting and pt clinically back to baseline mental status, without depression. Pt has been maintained on psych meds for many years, including effexor, abilify, buspar, amantadine, remeron. Pt was also on HCTZ. These meds were all stopped due to low Na, we presume that SIADH was caused by medication since no other obvious source. Pt did have similar episode about 5 years ago per . Patient Refused Consult: No BHS - Subjective Progress Notes Suicidal Ideation: None Homicidal Ideation: None BHS - Objective Mental Status Exam General Appearance: Casual, Good Eye Contact, Cooperative, Polite, Good Interaction Speech: Clear, Spontaneous, Normal Rate, Normal Rhythm, Normal Volume, Normal Tone Mood: Euthymic Affect: Full and Appropriate Thought Process: Organized, Logical, Goal Directed Thought Content: No Suicidal Ideation, No Homicidal Ideation, No Delusions, No Auditory Halllucinations, No Visual Hallucinations, No Thought Broadcasting, No Ideas of Reference, No Obsessions, No Compulsions, No Other Sensorium: Clear Cognition: Alert & Oriented-Person, Alert & Oriented-Place, Alert & Oriented- Time, Bvfec-Fysygvvb-Cvepsochq Memory: Immediate, Recent, Remote Intelligence: Average Insight Judgment: Good Result Diagram: 12/05/18 0437 12/06/18 0450 [facility] Assessment and Plan Vbrx-[id number] Encounter Date: December 06, 2018 [id number] Encounter Time: 11:30 Follow Up Testing Recommended: No Problems: (1) Hyponatremia Status: Acute Treatment Recommendation: Outpatient Treatment Recommendation Details RECOMMEND KEEP HER OFF ALL PSYCH MEDS. I WILL SPEAK WITH HER OUTPATIENT PSYCHIATRIST TODAY, DR. BRIANNE BARLOW, AT [facility]. I TOLD PT AND HER TO SCHEDULE APPOINTMENT WITH HIM FOR FOLLOWUP. CLAIRE PALACIOS MD December 06, 2018 11:54
--- NOTE | 2018-12-06 14:32 | Hospitalist Depart ---
Discharge Summary Reason for Hosp/Final Diag: (1) Hyponatremia Status: Acute Hospital Course & Plan: Her sodium was noted to be severely low. She received a few boluses of hypertonic saline, but remained low. Infusion of hypertonic saline and discontinuation of SSRI improved level to 126 and her mental status improved. Her SSRI and other psychoactive medications were stopped and will need to be reevaluated by outpatient provider. (2) ARF (acute renal failure) Status: Acute Hospital Course & Plan: We stopped her NSAID and lisinopril. Cr improved. (3) Severe depression Status: Acute Hospital Course & Plan: Pt was admitted voluntarily to [facility] for depression. No signs of depression after improvement in sodium and stopping psychoactive medications recommend outpatient follow up with psychiatric provider. (4) Hypertension Status: Chronic Hospital Course & Plan: Her lisinopril has been stopped as above. BP remained well controlled. Departure Weight (Pounds): 206 Weight (Ounces): 2.1 Result Diagram: 12/05/18 0437 12/06/18 1200 Condition: Improved Discharge: Home Discharge Instructions Home Meds Reported Medications Levothyroxine Sodium (LEVOTHYROXINE SODIUM) 50 Mcg Tablet, 50 MCG PO QDAY, TAB 12/02/18 Discontinued Reported Medications Lisinopril (LISINOPRIL) 20 Mg Tablet, 20 MG PO QDAY 03/17/14 Meloxicam (MELOXICAM) 7.5 Mg Tablet, 7.5 MG PO QDAY 12/02/18 Hydrochlorothiazide (HYDROCHLOROTHIAZIDE) 25 Mg Tablet, 1 TAB PO QDAY, TAB 12/02/18 Amantadine Hcl (AMANTADINE) 100 Mg Capsule, 100 MG PO QHS, CAPSULE 10/20/16 Venlafaxine Hcl (VENLAFAXINE HCL ER) 150 Mg Tab.er.24, 150 MG PO QDAY 03/17/14 Buspirone Hcl (BUSPIRONE HCL) 30 Mg Tablet, 30 MG PO TID, #10 TAB TAKE 1 TABLET BY MOUTH TWICE A DAY 03/17/14 Aripiprazole (ABILIFY) 30 Mg Tablet, 20 MG PO QDAY, #10 TAB TAKE 1 TABLET BY MOUTH DAILY 03/17/14 Mirtazapine (MIRTAZAPINE) 30 Mg Tablet, 45 MG PO HS 03/17/14 Calcium Carbonate (CALCIUM) 600 Mg Tablet, 600 MG PO QDAY 10/20/16 Calcium Carbonate/Vitamin D3 (CALCIUM 1,000 + D3 CAPLET) 1 Each Tablet, 1 PO 10/20/16 Special Instructions: Follow up with PCP to monitor BP off antihypertensive. Follow up with psychiatric provider to monitor off psychoactive medications. Venous Thromboembolism Antithrombotics Is Pt On Any Antithrombotics?: SWATHI Gayle DO December 06, 2018 14:30
== END 2018-12-06 15:15 | disposition home or self-care (01) | DRG 644 ==
LOC: ICU 14:38
PROVIDERS: ADMIT Internal Medicine; ATTEND Internal Medicine
DX: E22.2 Syndrome of inappropriate secretion of antidiuretic hormone (principal); N17.9 Acute kidney failure, unspecified; F32.2 Major depressive disorder, single episode, severe without psychotic features; I10 Essential (primary) hypertension
CPT/HCPCS: 36415; 80305; 80320; 80329; 81001; 82040; 82247; 82310; 82374; 82435; 82565; 82947; 83735; 83930; 83935; 84075; 84132; 84155; 84295; 84300; 84443; 84450; 84460; 84520; 85025; 99284; J3490

== ENCOUNTER 2018-12-15 16:04 | Emergency (ER) | payer MEDICARE ==
--- NOTE | 2018-12-15 16:12 | ER Report ---
History and Physical Time Seen By MD: 16:12 HPI/ROS CHIEF COMPLAINT: Low salt, right upper quadrant abdominal pain HISTORY OF PRESENT ILLNESS: 73-year-old female patient presents to emergency room with complaint of low salt. Patient states that she was diagnosed with having low-salt in the past and is concerned she has again. Patient is from [place] was brought in by EMS. They were contacted by the healthcare provider that saw her in [place]. At that time they stated that she was having right upper quadrant abdominal pain. They were concerned that she may be having something going on. She denies any nausea, vomiting or diarrhea. Patient is unsure when the last time she ate was. Patient denies any abdominal pain on initial questioning. REVIEW OF SYSTEMS: Respiratory: No cough, no dyspnea. Cardiovascular: No chest pain, no palpitations. Gastrointestinal: As noted above Musculoskeletal: No back pain. Allergies: Coded Allergies: bupropion (Unverified Allergy, Unknown, 12/02/18) Home Meds Reported Medications Levothyroxine Sodium (LEVOTHYROXINE SODIUM) 50 Mcg Tablet, 50 MCG PO QDAY, TAB 12/02/18 Past Medical/Surgical History Patient has a past medical history of hypertension, asthma, back pain, hypothyroidism, depression. Patient has a surgical history of abdominal surgery, appendectomy, hysterectomy. Reviewed Nurses Notes: Yes Hx Smoking: No Smoking Status: Never Smoker Exposure to Second Hand Smoke?: No Hx Substance Use Disorder: No Hx Alcohol Use: No Constitutional Vital Sign - Last 24 Hours 12/15/18 12/15/18 12/15/18 12/15/18 16:09 16:30 16:48 17:30 Temp 98.8 Pulse 95 88 87 Resp 16 B/P (MAP) 150/102 144/84 (104) 139/81 (100) Pulse Ox 90 92 94 O2 Delivery Room Air O2 Flow Rate 2.0 12/15/18 18:00 Pulse 89 B/P (MAP) 142/88 (106) Pulse Ox 95 Physical Exam General Appearance: The patient is alert, has no immediate need for airway protection and no current signs of toxicity. Respiratory: Chest is non tender, lungs are clear to auscultation. Cardiac: regular rate and rhythm Gastrointestinal: Abdomen is soft and tender in the right upper quadrant, no masses, bowel sounds normal. Musculoskeletal: Neck: Neck is supple and non tender. Extremities have full range of motion and are non tender. Skin: No rashes or lesions. DIFFERENTIAL DIAGNOSIS: After history and physical exam differential diagnosis was considered for abdominal pain including but not limited to appendicitis, cholecystitis, gastritis and urinary tract infection. Medical Decision Making Data Points Result Diagram: 12/15/18 1621 12/15/18 1621 Laboratory Hematology Test 12/15/18 16:21 Red Blood Count 4.18 M/uL (4.17-5.56) Mean Corpuscular Volume 84.2 fL (80.0-96.0) Mean Corpuscular Hemoglobin 29.3 pg (26.0-33.0) Mean Corpuscular Hemoglobin Concent 34.7 g/dL (32.0-36.0) Red Cell Distribution Width 14.1 % (11.5-14.5) Mean Platelet Volume 7.4 fL (7.2-11.1) Neutrophils (%) (Auto) 52.4 % (39.4-72.5) Lymphocytes (%) (Auto) 30.6 % (17.6-49.6) Monocytes (%) (Auto) 15.4 % (4.1-12.4) Eosinophils (%) (Auto) 1.0 % (0.4-6.7) Basophils (%) (Auto) 0.6 % (0.3-1.4) Nucleated RBC Relative Count (auto) 0.0 /100WBC Neutrophils # (Auto) 4.6 K/uL (2.0-7.4) Lymphocytes # (Auto) 2.7 K/uL (1.3-3.6) Monocytes # (Auto) 1.4 K/uL (0.3-1.0) Eosinophils # (Auto) 0.1 K/uL (0.0-0.5) Basophils # (Auto) 0.1 K/uL (0.0-0.1) Nucleated RBC Absolute Count (auto) 0.00 K/uL Prothrombin Time 12.4 seconds (12.0-14.4) Prothromb Time International Ratio 0.93 Activated Partial Thromboplast Time 30 seconds (23-35) Sodium Level 134 mmol/L (137-145) Potassium Level 3.7 mmol/L (3.5-5.0) Chloride Level 100 mmol/L (98-107) Carbon Dioxide Level 28 mmol/L (22-31) Blood Urea Nitrogen 12 mg/dl (7-18) Creatinine 0.80 mg/dl (0.52-1.04) Glomerular Filtration Rate Calc > 60.0 Random Glucose 113 mg/dl (75-110) Calcium Level 8.6 mg/dl (8.4-10.2) Total Bilirubin 0.2 mg/dl (0.2-1.3) Aspartate Amino Transf (AST/SGOT) 22 U/L (0-35) Alanine Aminotransferase (ALT/SGPT) 22 U/L (0-56) Alkaline Phosphatase 72 U/L (0-126) C-Reactive Protein 1.7 mg/dl (<1.0) Total Protein 6.6 g/dl (6.3-8.2) Albumin 3.7 g/dl (3.5-5.0) Amylase Level 54 U/L (0-110) Lipase 94 U/L (23-300) Chemistry Test 12/15/18 16:21 White Blood Count 8.9 k/uL (4.5-11.0) Red Blood Count 4.18 M/uL (4.17-5.56) Hemoglobin 12.2 g/dL (12.0-16.0) Hematocrit 35.2 % (34.0-47.0) Mean Corpuscular Volume 84.2 fL (80.0-96.0) Mean Corpuscular Hemoglobin 29.3 pg (26.0-33.0) Mean Corpuscular Hemoglobin Concent 34.7 g/dL (32.0-36.0) Red Cell Distribution Width 14.1 % (11.5-14.5) Platelet Count 210 K/uL (150-450) Mean Platelet Volume 7.4 fL (7.2-11.1) Neutrophils (%) (Auto) 52.4 % (39.4-72.5) Lymphocytes (%) (Auto) 30.6 % (17.6-49.6) Monocytes (%) (Auto) 15.4 % (4.1-12.4) Eosinophils (%) (Auto) 1.0 % (0.4-6.7) Basophils (%) (Auto) 0.6 % (0.3-1.4) Nucleated RBC Relative Count (auto) 0.0 /100WBC Neutrophils # (Auto) 4.6 K/uL (2.0-7.4) Lymphocytes # (Auto) 2.7 K/uL (1.3-3.6) Monocytes # (Auto) 1.4 K/uL (0.3-1.0) Eosinophils # (Auto) 0.1 K/uL (0.0-0.5) Basophils # (Auto) 0.1 K/uL (0.0-0.1) Nucleated RBC Absolute Count (auto) 0.00 K/uL Prothrombin Time 12.4 seconds (12.0-14.4) Prothromb Time International Ratio 0.93 Activated Partial Thromboplast Time 30 seconds (23-35) Glomerular Filtration Rate Calc > 60.0 Calcium Level 8.6 mg/dl (8.4-10.2) Total Bilirubin 0.2 mg/dl (0.2-1.3) Aspartate Amino Transf (AST/SGOT) 22 U/L (0-35) Alanine Aminotransferase (ALT/SGPT) 22 U/L (0-56) Alkaline Phosphatase 72 U/L (0-126) C-Reactive Protein 1.7 mg/dl (<1.0) Total Protein 6.6 g/dl (6.3-8.2) Albumin 3.7 g/dl (3.5-5.0) Amylase Level 54 U/L (0-110) Lipase 94 U/L (23-300) Coagulation Test 12/15/18 16:21 Prothrombin Time 12.4 seconds Prothromb Time International Ratio 0.93 Activated Partial Thromboplast Time 30 seconds EKG/Imaging Imaging EXAMINATION: CT abdomen with IV contrast CT pelvis with IV contrast HISTORY: Right upper quadrant abdominal pain. COMPARISON: None. TECHNIQUE: Axial images were taken through the abdomen and pelvis with intravenous contrast. Sagittal and coronal reformatted images are also submitted. CONTRAST: 95 mL of IV Isovue-370 One of the following dose optimization techniques was utilized in the performance of this exam: Automated exposure control; adjustment of the mA and/or kV according to the patient's size; or use of an iterative reconstruction technique. Specific details can be referenced in the facility's radiology CT exam operational policy. FINDINGS: Liver/biliary: Negative. Pancreas: Negative. Spleen: Negative. Adrenal glands: Negative. Kidneys: Subcentimeter cyst in the right kidney. No hydronephrosis. Pelvic structures: Status post hysterectomy. The vagina is along the superior surface of the urinary bladder. There is mild stranding and haziness in the soft tissues about the vagina with linear tract of soft tissue noted to extend from the upper portion of the vagina to the sigmoid colon. Bowel: Extensive colonic diverticulosis. No definite evidence of acute diverticulitis. Peritoneum/retroperitoneum/mesenteries: Mild stranding and haziness in the fat planes along the vagina and urinary bladder. No intraperitoneal free air or free fluid. Vessels: Negative. Musculoskeletal/body wall: Mild multilevel disc degenerative changes in the thoracolumbar spine. Lymph node assessment: Negative. Lower chest: Negative. IMPRESSION: There is haziness and stranding in the fat planes along the vagina and urinary bladder which probably represent chronic changes, however, acute inflammation in this region is not excluded. There is a linear tract of soft tissue which extends from the sigmoid colon to the upper portion of the vagina which may be sequela of previous inflammation, however, a colovaginal fistula is not excluded. Extensive colonic diverticulosis with no definite evidence of acute diverticulitis. Report Dictated By: Jer Prasad MD at 12/15/2018 5:45 PM Report E-Signed By: Jer Prasad MD at 12/15/2018 6:01 PM EXAMINATION: Head CT without intravenous contrast HISTORY: Right upper quadrant abdominal pain. COMPARISON: None. TECHNIQUE: Contiguous axial images were obtained from the skull base to the vertex without intravenous contrast. Sagittal and coronal reformatted images a re also submitted. One of the following dose optimization techniques was utilized in the performan ce of this exam: Automated exposure control; adjustment of the mA and/or kV according to the patient's size; or use of an iterative reconstruction technique. Specific details can be referenced in the facility's radiology CT exam operational policy. FINDINGS: Brain and intracranial structures: Ventricles and sulci are normal in size for patient's age. Dao-white matter differentiation is maintained. Mild patchy hypoattenuation in the white matter. No midline shift, acute hemorrhage, mass, or evidence of acute infarct. Vessels: Calcified plaque of the carotid siphons. Calvarium / scalp: Negative. Skull base / visualized face: Degenerative changes of the temporomandibular joints. Leftward deviation of the nasal septum. Visualized sinuses / orbits: The lenses have been replaced. IMPRESSION: No CT evidence of acute intracanal pathology. Mild patchy hypoattenuation in the white matter, likely chronic small vessel ischemic changes. Report Dictated By: Jer Prasad MD at 12/15/2018 5:34 PM Report E-Signed By: Jer Prasad MD at 12/15/2018 5:45 PM ED Course/Re-evaluation ED Course Patient was admitted to an exam room, history and physical were obtained. Differential diagnoses were considered. On examination lungs are clear, heart is regular, abdomen is soft and tender in the right upper quadrant. An IV was started, a CBC, CMP, CRP was done. Lab results showed no elevated white count, no left shift. She did have a very slightly elevated inflammatory marker, CRP of 1.7. A CT scan of the abdomen and pelvis was done which showed no acute findings. He did mention some concern about possible fistula development between the sigmoid colon and the vagina. Patient had no complaints in the pelvic region at this time and I believe that is likely not the source of her irritation at this time. I discussed the findings with the patient and her . We will go ahead and discharge the patient home. She is follow-up with her primary care provider in the next 1-2 weeks. She is return to emergency room if condition worsens. Patient and verbalized understanding and agreement with plan. Decision to Disposition Date: December 15, 2018 Decision to Disposition Time: 18:13 Depart Departure Latest Vital Signs Vital Signs Date Time Temp Pulse Resp B/P (MAP) Pulse Ox O2 Delivery O2 Flow Rate FiO2 12/15/18 18:00 89 142/88 (106) 95 12/15/18 16:48 2.0 12/15/18 16:09 98.8 16 Room Air Impression: Primary Impression: Abdominal pain Condition: Improved Disposition: HOME OR SELF-CARE Referrals: CARMEN BEE MD (PCP) Patient Instructions: Abdominal Pain (ED) Additional Instructions: Limit activity by pain. Increase fluid intake. Get plenty of rest. Follow up with your primary care provider in the next 1-2 weeks. Make sure that you are getting plenty of salt in your diet. Return to the ER if condition worsens. Problem Qualifiers Primary Impression: Abdominal pain Abdominal location: right upper quadrant Qualified Codes: R10.11 - Right upper quadrant pain CHANO DOWNEY December 15, 2018 16:12
[2018-12-15 16:36] LABS: PLATELET COUNT, AUTOMATED 210 K/uL (150-450)
[2018-12-15] MEDS ORDERED: IOPAMIDOL 76% 150 ML INFUS BTL 150 ML ONE (16:36)
[2018-12-15 16:46] LABS: INR 0.93
--- NOTE | 2018-12-15 17:48 | RADIOLOGY IMAGING REPORT ---
FACILITY: [facility] PATIENT NAME: Chely Maynard : 1945 MR: [id number] V: [id number] EXAM DATE: ORDERING PHYSICIAN: CHANO DOWNEY TECHNOLOGIST: Location: [facility] - [place] Patient: Chely Maynard : 1945 Visit/Account:[id number] Date of Sevice: 12/15/2018 EXAMINATION: Head CT without intravenous contrast HISTORY: Right upper quadrant abdominal pain. COMPARISON: None. TECHNIQUE: Contiguous axial images were obtained from the skull base to the vertex without intraven ous contrast. Sagittal and coronal reformatted images are also submitted. One of the following dose optimization techniques was utilized in the performance of this exam: Autom ated exposure control; adjustment of the mA and/or kV according to the patient's size; or use of an i terative reconstruction technique. Specific details can be referenced in the facility's radiology C T exam operational policy. FINDINGS: Brain and intracranial structures: Ventricles and sulci are normal in size for patient's age. Dao-w jorge matter differentiation is maintained. Mild patchy hypoattenuation in the white matter. No midline shift, acute hemorrhage, mass, or evidence of acute infarct. Vessels: Calcified plaque of the carotid siphons. Calvarium / scalp: Negative. Skull base / visualized face: Degenerative changes of the temporomandibular joints. Leftward deviati on of the nasal septum. Visualized sinuses / orbits: The lenses have been replaced. IMPRESSION: No CT evidence of acute intracanal pathology. Mild patchy hypoattenuation in the white matter, likely chronic small vessel ischemic changes. Report Dictated By: Jer Prasad MD at 12/15/2018 5:34 PM Report E-Signed By: Jer Prasad MD at 12/15/2018 5:45 PM WSN:[id number]
[2018-12-15 18:00] VITALS: BP 142/88
--- NOTE | 2018-12-15 18:04 | RADIOLOGY IMAGING REPORT ---
FACILITY: [facility] PATIENT NAME: Chely Maynard : 1945 MR: [id number] V: [id number] EXAM DATE: ORDERING PHYSICIAN: CHANO DOWNEY TECHNOLOGIST: Location: [facility] [place] Patient: Chely Maynard : 1945 Visit/Account:[id number] Date of Sevice: 12/15/2018 EXAMINATION: CT abdomen with IV contrast CT pelvis with IV contrast HISTORY: Right upper quadrant abdominal pain. COMPARISON: None. TECHNIQUE: Axial images were taken through the abdomen and pelvis with intravenous contrast. Sagitt al and coronal reformatted images are also submitted. CONTRAST: 95 mL of IV Isovue-370 One of the following dose optimization techniques was utilized in the performance of this exam: Autom ated exposure control; adjustment of the mA and/or kV according to the patient's size; or use of an i terative reconstruction technique. Specific details can be referenced in the facility's radiology C T exam operational policy. FINDINGS: Liver/biliary: Negative. Pancreas: Negative. Spleen: Negative. Adrenal glands: Negative. Kidneys: Subcentimeter cyst in the right kidney. No hydronephrosis. Pelvic structures: Status post hysterectomy. The vagina is along the superior surface of the urina ry bladder. There is mild stranding and haziness in the soft tissues about the vagina with linear tra ct of soft tissue noted to extend from the upper portion of the vagina to the sigmoid colon. Bowel: Extensive colonic diverticulosis. No definite evidence of acute diverticulitis. Peritoneum/retroperitoneum/mesenteries: Mild stranding and haziness in the fat planes along the vagin a and urinary bladder. No intraperitoneal free air or free fluid. Vessels: Negative. Musculoskeletal/body wall: Mild multilevel disc degenerative changes in the thoracolumbar spine. Lymph node assessment: Negative. Lower chest: Negative. IMPRESSION: There is haziness and stranding in the fat planes along the vagina and urinary bladder which probably represent chronic changes, however, acute inflammation in this region is not excluded. There is a li near tract of soft tissue which extends from the sigmoid colon to the upper portion of the vagina whi ch may be sequela of previous inflammation, however, a colovaginal fistula is not excluded. Extensive colonic diverticulosis with no definite evidence of acute diverticulitis. Report Dictated By: Jer Prasad MD at 12/15/2018 5:45 PM Report E-Signed By: Jer Prasad MD at 12/15/2018 6:01 PM WSN:[id number]
== END 2018-12-15 18:35 | disposition home or self-care (01) ==
LOC: ER 16:10
DX: R10.11 Right upper quadrant pain (principal)
CPT/HCPCS: 70450; 74177; 82150; 83690; 85025; 85610; 85730; 86140; 99284; Q9967; 82040; 82247; 82310; 82374; 82435; 82565; 82947; 84075; 84132; 84155; 84295; 84450; 84460; 84520

== ENCOUNTER 2018-12-21 18:47 | Emergency (ER) | payer MEDICARE ==
--- NOTE | 2018-12-21 18:49 | ER Report ---
History and Physical Time Seen By MD: 18:49 HPI/ROS CHIEF COMPLAINT: Right lower quadrant abdominal pain HISTORY OF PRESENT ILLNESS: 73-year-old female resents ambulatory with severe nausea and right lower quadrant pain. Patient was seen here one week ago on 12/15/[address] scan of her abdomen and pelvis. She currently states she is being treated for urinary tract infection. She is several days into a course of Bactrim DS. She notes sharp right lower quadrant abdominal pain, almost suprapubic along the inguinal ligament 02/14, intermittently. She notes that nothing makes the pain seemed to get better or worse. She notes no fever or chills. She denies dysuria, frequency or hematuria. She denies change in bowel habits. Review of the CAT scan report shows some inflammatory tissue in the pelvis adjacent to the vaginal cuff, the report is copied in the images section below. REVIEW OF SYSTEMS: Respiratory: No cough, no dyspnea. Cardiovascular: No chest pain, no palpitations. Gastrointestinal: As above Musculoskeletal: No back pain. Allergies: Coded Allergies: bupropion (Unverified Allergy, Unknown, 12/21/18) smallpox vaccine,chick-embryo,live (Verified Allergy, Unknown, 12/21/18) Home Meds Active Scripts Ondansetron 4 Mg Odt (ONDANSETRON 4 MG ODT) 4 Mg Tab.rapdis, 4 MG PO Q6H PRN for NAUSEA/VOMITING, #10 TAB Prov:KEVIN ZAMORA DO 12/21/18 Hydrocodone Bit/Acetaminophen (HYDROCODON-ACETAMINOPHEN 5-325) 1 Each Tablet, 1 EACH PO Q4-6H PRN for PAIN, #12 TAKE ONE TABLET BY MOUTH EVERY 4-6 HOURS NEEDED FOR PAIN Prov:KEVIN ZAMORA DO 12/21/18 Ciprofloxacin Hcl 500 Mg Tab (CIPRO 500 MG TAB) 500 Mg Tablet, 500 MG PO BID for infection, #14 Prov:KEVIN ZAMORA DO 12/21/18 Reported Medications Levothyroxine Sodium (LEVOTHYROXINE SODIUM) 50 Mcg Tablet, 50 MCG PO QDAY, TAB 12/02/18 Reviewed Nurses Notes: Yes Old Medical Records Reviewed: Yes Hx Smoking: No Smoking Status: Never Smoker Exposure to Second Hand Smoke?: No Hx Substance Use Disorder: No Hx Alcohol Use: No Constitutional Vital Sign - Last 24 Hours 512/21/18 12/21/18 12/21/18 18:57 18:58 19:00 19:02 Temp 98.3 Pulse 141 137 137 Resp 28 B/P (MAP) 167/105 (125) 167/105 150/116 (127) Pulse Ox 93 93 93 O2 Delivery Room Air 12/21/18 12/21/18 12/21/18 12/21/18 19:07 19:12 19:17 19:22 Pulse ??? 134 134 136 Pulse Ox 93 93 93 91 12/21/18 12/21/18 12/21/18 12/21/18 19:27 19:30 19:32 19:37 Pulse 132 129 130 B/P (MAP) 147/98 (114) Pulse Ox 89 97 96 12/21/18 12/21/18 12/21/18 12/21/18 19:42 19:47 19:52 19:57 Pulse 128 133 131 130 Pulse Ox 97 97 97 97 12/21/18 12/21/18 20:00 20:02 Pulse 128 B/P (MAP) 147/100 (116) Pulse Ox 98 Intake and Output 12/21/18 12/21/18 12/22/18 15:00 23:00 07:00 Intake Total 1000 ml Balance 1000 ml Physical Exam General Appearance: The patient is alert, has no immediate need for airway protection and no current signs of toxicity. Vital signs stable, afebrile, mildly tachycardic, blood pressure mildly elevated HEENT: Pupils equal and round no injection. TMs normal, oropharynx without redness or exudate Respiratory: Chest is non tender, lungs are clear to auscultation. Cardiac: regular rate and rhythm Gastrointestinal: [Abdomen is soft , mildly distended right lower suprapubic tenderness, no tenderness over McBurney's point, no masses, bowel sounds hyperactive.] Musculoskeletal: Neck: Neck is supple and non tender. No lymphadenopathy Extremities have full range of motion and are non tender. Skin: No rashes or lesions. DIFFERENTIAL DIAGNOSIS: After history and physical exam differential diagnosis was considered for abdominal pain including but not limited to appendicitis, cholecystitis, gastritis and urinary tract infection. Medical Decision Making Data Points Result Diagram: 12/21/18190912/21/181909 Laboratory Hematology Test 12/21/18 17:10 12/21/18 19:10 C-Reactive Protein 0.9 mg/dl (<1.0) Red Blood Count 4.59 M/uL (4.17-5.56) Mean Corpuscular Volume 84.7 fL (80.0-96.0) Mean Corpuscular Hemoglobin 28.9 pg (26.0-33.0) Mean Corpuscular Hemoglobin Concent 34.2 g/dL (32.0-36.0) Red Cell Distribution Width 14.5 % (11.5-14.5) Mean Platelet Volume 7.6 fL (7.2-11.1) Neutrophils (%) (Auto) 43.6 % (39.4-72.5) Lymphocytes (%) (Auto) 38.6 % (17.6-49.6) Monocytes (%) (Auto) 16.2 % (4.1-12.4) Eosinophils (%) (Auto) 1.1 % (0.4-6.7) Basophils (%) (Auto) 0.5 % (0.3-1.4) Nucleated RBC Relative Count (auto) 0.2 /100WBC Neutrophils # (Auto) 3.5 K/uL (2.0-7.4) Lymphocytes # (Auto) 3.1 K/uL (1.3-3.6) Monocytes # (Auto) 1.3 K/uL (0.3-1.0) Eosinophils # (Auto) 0.1 K/uL (0.0-0.5) Basophils # (Auto) 0.0 K/uL (0.0-0.1) Nucleated RBC Absolute Count (auto) 0.02 K/uL Sodium Level 134 mmol/L (137-145) Potassium Level 3.4 mmol/L (3.5-5.0) Chloride Level 99 mmol/L (98-107) Carbon Dioxide Level 24 mmol/L (22-31) Blood Urea Nitrogen 15 mg/dl (7-18) Creatinine 1.00 mg/dl (0.52-1.04) Glomerular Filtration Rate Calc 54.7 Random Glucose 94 mg/dl (75-110) Calcium Level 9.3 mg/dl (8.4-10.2) Total Bilirubin 0.2 mg/dl (0.2-1.3) Aspartate Amino Transf (AST/SGOT) 20 U/L (0-35) Alanine Aminotransferase (ALT/SGPT) 22 U/L (0-56) Alkaline Phosphatase 76 U/L (0-126) Total Protein 7.5 g/dl (6.3-8.2) Albumin 4.3 g/dl (3.5-5.0) Amylase Level 62 U/L (0-110) Lipase 130 U/L (23-300) Chemistry Test 12/21/18 17:10 12/21/18 19:10 C-Reactive Protein 0.9 mg/dl (<1.0) White Blood Count 8.1 k/uL (4.5-11.0) Red Blood Count 4.59 M/uL (4.17-5.56) Hemoglobin 13.3 g/dL (12.0-16.0) Hematocrit 38.9 % (34.0-47.0) Mean Corpuscular Volume 84.7 fL (80.0-96.0) Mean Corpuscular Hemoglobin 28.9 pg (26.0-33.0) Mean Corpuscular Hemoglobin Concent 34.2 g/dL (32.0-36.0) Red Cell Distribution Width 14.5 % (11.5-14.5) Platelet Count 231 K/uL (150-450) Mean Platelet Volume 7.6 fL (7.2-11.1) Neutrophils (%) (Auto) 43.6 % (39.4-72.5) Lymphocytes (%) (Auto) 38.6 % (17.6-49.6) Monocytes (%) (Auto) 16.2 % (4.1-12.4) Eosinophils (%) (Auto) 1.1 % (0.4-6.7) Basophils (%) (Auto) 0.5 % (0.3-1.4) Nucleated RBC Relative Count (auto) 0.2 /100WBC Neutrophils # (Auto) 3.5 K/uL (2.0-7.4) Lymphocytes # (Auto) 3.1 K/uL (1.3-3.6) Monocytes # (Auto) 1.3 K/uL (0.3-1.0) Eosinophils # (Auto) 0.1 K/uL (0.0-0.5) Basophils # (Auto) 0.0 K/uL (0.0-0.1) Nucleated RBC Absolute Count (auto) 0.02 K/uL Glomerular Filtration Rate Calc 54.7 Calcium Level 9.3 mg/dl (8.4-10.2) Total Bilirubin 0.2 mg/dl (0.2-1.3) Aspartate Amino Transf (AST/SGOT) 20 U/L (0-35) Alanine Aminotransferase (ALT/SGPT) 22 U/L (0-56) Alkaline Phosphatase 76 U/L (0-126) Total Protein 7.5 g/dl (6.3-8.2) Albumin 4.3 g/dl (3.5-5.0) Amylase Level 62 U/L (0-110) Lipase 130 U/L (23-300) EKG/Imaging Imaging Old CT scan reviewed CT abdomen with IV contrast CT pelvis with IV contrast HISTORY: Right upper quadrant abdominal pain. COMPARISON: None. TECHNIQUE: Axial images were taken through the abdomen and pelvis with intravenous contrast. Sagittal and coronal reformatted images are also sub mitted. CONTRAST: 95 mL of IV Isovue-370 One of the following dose optimization techniques was utilized in the performance of this exam: Automated exposure control; adjustment of the mA and/or kV according to the patient's size; or use of an iterative reconstruction technique. Specific details can be referenced in the facility's radiology CT exam operational policy. FINDINGS: Liver/biliary: Negative. Pancreas: Negative. Spleen: Negative. Adrenal glands: Negative. Kidneys: Subcentimeter cyst in the right kidney. No hydronephrosis. Pelvic structures: Status post hysterectomy. The vagina is along the superior surface of the urinary bladder. There is mild stranding and haziness in the soft tissues about the vagina with linear tract of soft tissue noted to extend from the upper portion of the vagina to the sigmoid colon. Bowel: Extensive colonic diverticulosis. No definite evidence of acute diverticulitis. Peritoneum/retroperitoneum/mesenteries: Mild stranding and haziness in the fat planes along the vagina and urinary bladder. No intraperitoneal free air or free fluid. Vessels: Negative. Musculoskeletal/body wall: Mild multilevel disc degenerative changes in the thoracolumbar spine. Lymph node assessment: Negative. Lower chest: Negative. IMPRESSION: There is haziness and stranding in the fat planes along the vagina and urinary bladder which probably represent chronic changes, however, acute inflammation in this region is not excluded. There is a linear tract of soft tissue which extends from the sigmoid colon to the upper portion of the vagina which may be sequela of previous inflammation, however, a colovaginal fistula is not excluded. Extensive colonic diverticulosis with no definite evidence of acute diverticulitis. ED Course/Re-evaluation Clinical Indication for ER IV: Hydration, IV Access ED Course Patient was minute to an examination room. H&P was done. The differential diagnoses was considered. Patient with increased crampy lower abdominal pain and hyperactive bowel sounds. She was seen one week ago, had a CAT scan which was unremarkable for pathology. There is some? Some scar tissue around her uterus and bladder versus acute inflammatory fistula to the colon. Patient has urinary tract infections been taking Bactrim for 2 days. Her laboratory studies are unremarkable. It did not feel any further diagnostic testing is warranted at this time. Patient be switched to Cipro anabiotic 500 mg twice daily for one week. She's given Zofran and hydrocodone for pain relief. She is advised to follow-up with [facility] for further evaluation of her CT abnormality. She was given a copy of her CT report. Decision to Disposition Date: December 21, 2018 Decision to Disposition Time: 19:49 Depart Departure Latest Vital Signs Vital Signs Date Time Temp Pulse Resp B/P (MAP) Pulse Ox O2 Delivery O2 Flow Rate FiO2 12/21/18 20:02 128 98 12/21/18 20:00 147/100 (116) 12/21/18 18:58 98.3 28 Room Air Impression: Primary Impression: Abdominal pain Additional Impression: Nausea Condition: Improved Disposition: HOME OR SELF-CARE Referrals: CARMEN BEE MD (PCP) MEMO VILLARREAL KIM N MD New Scripts Ondansetron 4 Mg Odt (ONDANSETRON 4 MG ODT) 4 Mg Tab.rapdis 4 MG PO Q6H PRN for NAUSEA/VOMITING, #10 TAB Prov: KEVIN ZAMORA DO 12/21/18 Hydrocodone Bit/Acetaminophen (HYDROCODON-ACETAMINOPHEN 5-325) 1 Each Tablet 1 EACH PO Q4-6H PRN for PAIN, #12 TAKE ONE TABLET BY MOUTH EVERY 4-6 HOURS NEEDED FOR PAIN Prov: KEVIN ZAMORA DO 12/21/18 Ciprofloxacin Hcl 500 Mg Tab (CIPRO 500 MG TAB) 500 Mg Tablet 500 MG PO BID for infection, #14 Prov: KEVIN ZAMORA DO 12/21/18 Patient Instructions: Abdominal Pain (ED), Clear Liquid Diet (ED) Additional Instructions: Stop taking sulfa antibiotic Start taking Cipro 500 mg twice daily until gone Follow clear liquid diet for 48 hours and advance to the brat diet, bananas, rice, applesauce and toast Avoid fatty food, greasy foods, vegetables and dairy for 3-4 days Follow-up with [facility] doctors listed on your paperwork Problem Qualifiers Primary Impression: Abdominal pain Abdominal location: lower abdomen, unspecified Qualified Codes: R10.30 - Lower abdominal pain, unspecified KEVIN ZAMORA DO December 21, 2018 18:49
[2018-12-21] MEDS ORDERED: NS(*) 0.9% 1000 ML BAG 1,000 ML IV ONE (18:56)
[2018-12-21] MEDS ORDERED: ONDANSETRON 4 MG/2 ML VIAL IVP ONE (19:20)
[2018-12-21] MEDS ORDERED: fentaNYL CITR 100 MCG/2 ML AMP IVP ONE (19:20)
[2018-12-21 19:38] LABS: PLATELET COUNT, AUTOMATED 231 K/uL (150-450)
[2018-12-21 20:00] VITALS: BP 147/100
[2018-12-21] MEDS ORDERED: CIPR-344 PO (20:04)
[2018-12-21] MEDS ORDERED: LOR5/325 PO (20:04)
[2018-12-21] MEDS ORDERED: ONDA4TAB9 PO (20:04)
== END 2018-12-21 20:17 | disposition home or self-care (01) ==
LOC: ER 19:02
DX: R10.30 Lower abdominal pain, unspecified (principal); R11.0 Nausea
CPT/HCPCS: 82150; 83690; 85025; 86140; 99284; J2405; J3010; J7030; 82040; 82247; 82310; 82374; 82435; 82565; 82947; 84075; 84132; 84155; 84295; 84450; 84460; 84520; 96374; 96375

== ENCOUNTER 2018-12-22 23:26 | Emergency (ER) | payer MEDICARE, BC ==
[~2018-12-22 23:26] MED LIST changes: +CIPR-344 PO; +LOR5/325 PO; +ONDA4TAB9 PO
--- NOTE | 2018-12-22 23:57 | ER Report ---
History and Physical Time Seen By MD: 23:51 Hx. of Stated Complaint: abdominal pain ems gave 4mg zofran, 100 fentanyl, 1mg versed, 500cc lr HPI/ROS CHIEF COMPLAINT: Severe abdominal pain HISTORY OF PRESENT ILLNESS: 73-year-old female brought in by ambulance from [facility] ([place], [place]) complaining of sudden onset of severe right lower quadrant pain shooting across to her left lower quadrant. Patient's history significant for recent visits to the emergency department for similar complaints and pains. She had a CAT scan performed on 12/15/18 which was unremarkable except for inflammatory tissue,? Scar tissue extending from her vaginal cuff to the: And bladder areas suspicious for a fistula. She had no elevated white blood cell count. Her urinalysis showed trace white cells and she was treated with Bactrim DS. She return to the ER a week later on 12/21/18. With recurrence of her pain. She had hyperactive bowel sounds. Diagnostic laboratory studies were normal. Chest her pain was relieved with fentanyl 50 g and Zofran 4 mg IV. That time she was switched to ciprofloxacin 500 mg twice a day for 7 days. She was given Zofran and Lortab to control her pain. She was advised to follow-up with [facility] for further evaluation of this potential fistula. Patient had another bout of pain this evening propping her to call 911. Paramedics responded and transported her to the emergency room. She describes a similar 9/10 right lower quadrant abdominal pain shooting over to the left quadrant. She notes no na usea, vomiting. She notes no diarrhea. She had a normal bowel movement earlier today. No dysuria. She denies fever or chills. She is status post appendectomy and hysterectomy. Patient received in route Versed 1 mg, fentanyl 100 g and Zofran 4 mg by the [facility] crew. On arrival, she is asymptomatic. REVIEW OF SYSTEMS: Respiratory: No cough, no dyspnea. Cardiovascular: No chest pain, no palpitations. Gastrointestinal: As above Musculoskeletal: No back pain. Allergies: Coded Allergies: bupropion (Unverified Allergy, Unknown, 12/22/18) smallpox vaccine,chick-embryo,live (Verified Allergy, Unknown, 12/22/18) Home Meds Active Scripts Ondansetron 4 Mg Odt (ONDANSETRON 4 MG ODT) 4 Mg Tab.rapdis, 4 MG PO Q6H PRN for NAUSEA/VOMITING, #10 TAB Prov:KEVIN ZAMORA DO 12/21/18 Hydrocodone Bit/Acetaminophen (HYDROCODON-ACETAMINOPHEN 5-325) 1 Each Tablet, 1 EACH PO Q4-6H PRN for PAIN, #12 TAKE ONE TABLET BY MOUTH EVERY 4-6 HOURS NEEDED FOR PAIN Prov:KEVIN ZAMORA DO 12/21/18 Ciprofloxacin Hcl 500 Mg Tab (CIPRO 500 MG TAB) 500 Mg Tablet, 500 MG PO BID for infection, #14 Prov:KEVIN ZAMORA DO 12/21/18 Reported Medications Levothyroxine Sodium (LEVOTHYROXINE SODIUM) 50 Mcg Tablet, 50 MCG PO QDAY, TAB 12/02/18 Reviewed Nurses Notes: Yes Old Medical Records Reviewed: Yes Hx Smoking: No Smoking Status: Never Smoker Exposure to Second Hand Smoke?: No Hx Substance Use Disorder: No Hx Alcohol Use: No Constitutional Vital Sign - Last 24 Hours 12/22/18 12/22/18 12/22/18 12/22/18 23:26 23:27 23:41 23:49 Temp 98.5 Pulse ??? 87 ??? Resp 12 B/P (MAP) 134/80 134/80 (98) Pulse Ox 92 O2 Delivery Room Air 12/22/18 12/23/18 12/23/18 12/23/18 23:56 00:11 00:26 00:47 Pulse 86 87 82 Pulse Ox 89 95 96 O2 Flow Rate 2.0 12/23/18 12/23/18 12/23/18 12/23/18 00:48 00:56 01:00 01:35 Pulse 79 80 83 B/P (MAP) 157/77 (103) Pulse Ox 95 95 12/23/18 12/23/18 12/23/18 01:50 02:00 02:05 Pulse 82 80 B/P (MAP) 144/107 (119) Pulse Ox 96 94 Physical Exam Vital signs stable, afebrile, pulse ox normal General Appearance: The patient is alert, has no immediate need for airway protection and no current signs of toxicity. Slightly pale appearing, skin warm and dry Eyes: Pupils equal and round no injection. Respiratory: Chest is non tender, lungs are clear to auscultation. Cardiac: regular rate and rhythm Gastrointestinal: Abdomen is soft, protuberant and non tender, no masses, bowel sounds are hyperactive Pelvic: Normal vaginal cuff without feculent material or discharge Musculoskeletal: Neck: Neck is supple and non tender. Extremities have full range of motion and are non tender. Skin: No rashes or lesions. DIFFERENTIAL DIAGNOSIS: After history and physical exam differential diagnosis was considered for abdominal pain including but not limited to appendicitis, cholecystitis, colic, bowel obstruction. Gastritis and urinary tract infection. Medical Decision Making Data Points Result Diagram: 12/22/18 8808 12/22/18 0368 Laboratory Hematology Test 12/22/18 22:05 12/22/18 23:57 Red Blood Count 4.22 M/uL (4.17-5.56) Mean Corpuscular Volume 86.0 fL (80.0-96.0) Mean Corpuscular Hemoglobin 29.0 pg (26.0-33.0) Mean Corpuscular Hemoglobin Concent 33.8 g/dL (32.0-36.0) Red Cell Distribution Width 14.2 % (11.5-14.5) Mean Platelet Volume 8.3 fL (7.2-11.1) Neutrophils (%) (Auto) % (39.4-72.5) Lymphocytes (%) (Auto) % (17.6-49.6) Monocytes (%) (Auto) % (4.1-12.4) Eosinophils (%) (Auto) % (0.4-6.7) Basophils (%) (Auto) % (0.3-1.4) Nucleated RBC Relative Count (auto) /100WBC Neutrophils # (Auto) K/uL (2.0-7.4) Lymphocytes # (Auto) K/uL (1.3-3.6) Monocytes # (Auto) K/uL (0.3-1.0) Eosinophils # (Auto) K/uL (0.0-0.5) Basophils # (Auto) K/uL (0.0-0.1) Nucleated RBC Absolute Count (auto) K/uL Neutrophils % (Manual) 45 % (39.4-72.5) Band Neutrophils % 5 % Lymphocytes % (Manual) 22 % (17.6-49.6) Atypical Lymphocytes % 20 % Monocytes % (Manual) 5 % (4.1-12.4) Eosinophils % (Manual) 2 % (0.4-6.7) Basophils % (Manual) 1 % (0.3-1.4) Peripheral Blood Smear Yes Y/N Sodium Level 132 mmol/L (137-145) Potassium Level 4.0 mmol/L (3.5-5.0) Chloride Level 101 mmol/L (98-107) Carbon Dioxide Level 24 mmol/L (22-31) Blood Urea Nitrogen 10 mg/dl (7-18) Creatinine 0.90 mg/dl (0.52-1.04) Glomerular Filtration Rate Calc > 60.0 Random Glucose 90 mg/dl (75-110) Calcium Level 8.6 mg/dl (8.4-10.2) Total Bilirubin 0.3 mg/dl (0.2-1.3) Aspartate Amino Transf (AST/SGOT) 21 U/L (0-35) Alanine Aminotransferase (ALT/SGPT) 27 U/L (0-56) Alkaline Phosphatase 57 U/L (0-126) C-Reactive Protein 0.5 mg/dl (<1.0) Total Protein 6.7 g/dl (6.3-8.2) Albumin 3.8 g/dl (3.5-5.0) Amylase Level 53 U/L (0-110) Lipase 75 U/L (23-300) Chemistry Test 12/22/18 22:05 12/22/18 23:57 White Blood Count 8.3 k/uL (4.5-11.0) Red Blood Count 4.22 M/uL (4.17-5.56) Hemoglobin 12.2 g/dL (12.0-16.0) Hematocrit 36.3 % (34.0-47.0) Mean Corpuscular Volume 86.0 fL (80.0-96.0) Mean Corpuscular Hemoglobin 29.0 pg (26.0-33.0) Mean Corpuscular Hemoglobin Concent 33.8 g/dL (32.0-36.0) Red Cell Distribution Width 14.2 % (11.5-14.5) Platelet Count 225 K/uL (150-450) Mean Platelet Volume 8.3 fL (7.2-11.1) Neutrophils (%) (Auto) % (39.4-72.5) Lymphocytes (%) (Auto) % (17.6-49.6) Monocytes (%) (Auto) % (4.1-12.4) Eosinophils (%) (Auto) % (0.4-6.7) Basophils (%) (Auto) % (0.3-1.4) Nucleated RBC Relative Count (auto) /100WBC Neutrophils # (Auto) K/uL (2.0-7.4) Lymphocytes # (Auto) K/uL (1.3-3.6) Monocytes # (Auto) K/uL (0.3-1.0) Eosinophils # (Auto) K/uL (0.0-0.5) Basophils # (Auto) K/uL (0.0-0.1) Nucleated RBC Absolute Count (auto) K/uL Neutrophils % (Manual) 45 % (39.4-72.5) Band Neutrophils % 5 % Lymphocytes % (Manual) 22 % (17.6-49.6) Atypical Lymphocytes % 20 % Monocytes % (Manual) 5 % (4.1-12.4) Eosinophils % (Manual) 2 % (0.4-6.7) Basophils % (Manual) 1 % (0.3-1.4) Peripheral Blood Smear Yes Y/N Glomerular Filtration Rate Calc > 60.0 Calcium Level 8.6 mg/dl (8.4-10.2) Total Bilirubin 0.3 mg/dl (0.2-1.3) Aspartate Amino Transf (AST/SGOT) 21 U/L (0-35) Alanine Aminotransferase (ALT/SGPT) 27 U/L (0-56) Alkaline Phosphatase 57 U/L (0-126) C-Reactive Protein 0.5 mg/dl (<1.0) Total Protein 6.7 g/dl (6.3-8.2) Albumin 3.8 g/dl (3.5-5.0) Amylase Level 53 U/L (0-110) Lipase 75 U/L (23-300) EKG/Imaging Imaging Results: CT scan of the abdomen and pelvis with IV contrast was obtained. The results of the study are CT ABDOMEN PELVIS W/ CON HISTORY: Right lower quadrant pain. 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 COMPARISON: 12/15/2018. TECHNIQUE: Axial images were obtained from the lung bases through the symphysis pubis with intravenous contrast. Sagittal and coronal reformats were performed. One of the following dose optimization techniques was utilized in the performance of this exam: Automated exposure control; adjustment of the mA and/or kV according to the patient's size; or use of an iterative reconstruction technique. Specific details can be referenced in the facility's radiology CT exam operational policy. CONTRAST: 75 mm IV Isovue-370. FINDINGS: Lower chest: There is linear scarring or atelectasis in the right middle lobe. There is minimal dependent atelectasis. 3 x 4 mm right lower lobe pulmonary nodule (image 32 series 2) is not apparent on prior study, but respiratory michaelle on artifact may have obscured it. Liver: Normal. Gallbladder/biliary: Normal. Pancreas: Mild atrophy. Spleen: Normal. Adrenals: Normal. Kidneys/ureters/bladder: 8 mm cortical cyst of the anterior mid right kidney (image 69) is unchanged. There is unchanged mild bilateral perinephric stra nding. No hydronephrosis. The ureters and the bladder are normal. GI/mesentery/peritoneal cavity: There is no bowel obstruction. There are linear densities between the sigmoid colon and vaginal cuff (coronal image 63 and 72), unchanged. There is focal circumferential thickening of the sigmoid colon (coronal images 60-70). No surrounding inflammatory change. No free air or free fluid. There is pancolonic diverticulosis. Appendix is surgically absent. Vessels: There is mild atherosclerotic disease. No aneurysm. No dissection. Nodes: Normal. Pelvis: Uterus is surgically absent. There is gas in the vagina. There are pelvic phleboliths. There is a small fat-containing left inguinal hernia. There is minimal hazy appearance of the fat surrounding the bladder and vagina. Bones/vertebra/soft tissues: There is mild multilevel degenerative change of the spine. Vertebral body heights are maintained. The spinal canal is normal in caliber. IMPRESSION: 1. Unchanged questionable fistulae between the sigmoid colon and the vagina. Please clinically correlate with any feculent material in the vagina. 2. Pancolonic diverticulosis without convincing acute diverticulitis. 3. There is focal thickening of the sigmoid colon. While this could be sequela of recent or mild diverticulitis, if patient has not had a recent negative colonoscopy, colonoscopy is recommended to ensure no underlying lesion. 4. Hazy appearance of the fat surrounding the bladder and vagina. Reportedly, patient is being treated for UTI. The study was read by the radiologist. I viewed the images myself on the PACS system. ED Course/Re-evaluation ED Course Patient was admitted to an examination room. H&P was done. Patient with recurrent right lower quadrant abdominal pain across the left. Patient was seen approximately one week ago, had a CAT scan which showed a potential fistula from the vaginal cuff to the colon. Patient's been on Cipro for a couple for one da y. Patient has a follow-up appointment with [facility] for evaluation of potential vaginal cuff fistula. Patient with increasing abdominal pain. A repeat CT scan was performed. Diagnostic laboratory studies are unremarkable. CT scan was unremarkable showing similar findings her previous CAT scan. Patient advised to follow-up with general surgery for colonoscopy as recommended by radiology. Patient advised to finish her course of Cipro. Patient is likely having colic and fecal stasis, she was advised MiraLAX. Decision to Disposition Date: December 23, 2018 Decision to Disposition Time: 01:15 Depart Departure Latest Vital Signs Vital Signs Date Time Temp Pulse Resp B/P (MAP) Pulse Ox O2 Delivery O2 Flow Rate FiO2 12/23/18 02:05 80 94 12/23/18 02:00 144/107 (119) 12/23/18 00:47 2.0 12/22/18 23:27 98.5 12 Room Air Impression: Primary Impression: Abdominal pain Additional Impressions: Nausea Abnormal CT scan Colic Condition: Improved Disposition: HOME OR SELF-CARE Referrals: CARMEN BEE MD (PCP) MARKOS ALVARADO JOHN A MD Additional Instructions: Take MiraLAX 1 capful twice daily for 3 days to help your bowels evacuated Continue Cipro until gone Continue following clear liquid diet Follow up with [facility] as planned on Tuesday Follow-up with general surgery, Dr. Grewal. Or Dr. Alvarado for a colonoscopy for an abnormal spots seen on the CT scan Problem Qualifiers Primary Impression: Abdominal pain Abdominal location: lower abdomen, unspecified Qualified Codes: R10.30 - Lower abdominal pain, unspecified KEVIN ZAMORA DO December 22, 2018 23:57
[2018-12-23 00:11] LABS: PLATELET COUNT, AUTOMATED 225 K/uL (150-450)
[2018-12-23] MEDS ORDERED: IOPAMIDOL 76% 100 ML INFUS BTL 100 ML ONE (00:35)
--- NOTE | 2018-12-23 01:24 | RADIOLOGY IMAGING REPORT ---
FACILITY: [facility] [place] PATIENT NAME: Chely Maynard : 1945 MR: [id number] V: [id number] EXAM DATE: [id number] ORDERING PHYSICIAN: KEVIN ZAMORA TECHNOLOGIST: Location: [facility] Patient: Chely Maynard : 1945 Visit/Account:[id number] Date of Sevice: 12/22/2018 CT ABDOMEN PELVIS W/ CON HISTORY: Right lower quadrant pain. 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 COMPARISON: 12/15/2018. TECHNIQUE: Axial images were obtained from the lung bases through the symphysis pubis with intravenou s contrast. Sagittal and coronal reformats were performed. One of the following dose optimization techniques was utilized in the performance of this exam: Autom ated exposure control; adjustment of the mA and/or kV according to the patient's size; or use of an i terative reconstruction technique. Specific details can be referenced in the facility's radiology CT exam operational policy. CONTRAST: 75 mm IV [id number]. FINDINGS: Lower chest: There is linear scarring or atelectasis in the right middle lobe. There is minimal depen dent atelectasis. 3 x 4 mm right lower lobe pulmonary nodule (image 32 series 2) is not apparent on p rior study, but respiratory motion artifact may have obscured it. Liver: Normal. Gallbladder/biliary: Normal. Pancreas: Mild atrophy. Spleen: Normal. Adrenals: Normal. Kidneys/ureters/bladder: 8 mm cortical cyst of the anterior mid right kidney (image 69) is unchanged. There is unchanged mild bilateral perinephric stranding. No hydronephrosis. The ureters and the blad yvonne are normal. GI/mesentery/peritoneal cavity: There is no bowel obstruction. There are linear densities between the sigmoid colon and vaginal cuff (coronal image 63 and 72), unchanged. There is focal circumferential thickening of the sigmoid colon (coronal images 60-70). No surrounding inflammatory change. No free a ir or free fluid. There is pancolonic diverticulosis. Appendix is surgically absent. Vessels: There is mild atherosclerotic disease. No aneurysm. No dissection. Nodes: Normal. Pelvis: Uterus is surgically absent. There is gas in the vagina. There are pelvic phleboliths. There is a small fat-containing left inguinal hernia. There is minimal hazy appearance of the fat surroundi ng the bladder and vagina. Bones/vertebra/soft tissues: There is mild multilevel degenerative change of the spine. Vertebral bod y heights are maintained. The spinal canal is normal in caliber. IMPRESSION: 1. Unchanged questionable fistulae between the sigmoid colon and the vagina. Please clinically correl ate with any feculent material in the vagina. 2. Pancolonic diverticulosis without convincing acute diverticulitis. 3. There is focal thickening of the sigmoid colon. While this could be sequela of recent or mild dive rticulitis, if patient has not had a recent negative colonoscopy, colonoscopy is recommended to ensur e no underlying lesion. 4. Hazy appearance of the fat surrounding the bladder and vagina. Reportedly, patient is being treate d for UTI. These findings were discussed by phone with KEVIN ZAMORA on 12/23/2018 1:15 AM. Report Dictated By: Ana Luisa Murphy at 12/23/2018 12:59 AM Report E-Signed By: Ana Luisa Murphy at 12/23/2018 1:20 AM WSN:[id number]
[2018-12-23 02:00] VITALS: BP 144/107
[2018-12-23] MEDS ORDERED: METR500T15 PO ×2 (20:49→20:59)
[2018-12-23] MEDS ORDERED: ONDA4TAB9 PO ×2 (20:49→20:59)
[2018-12-23] MEDS ORDERED: OXYC-865 PO (20:49)
== END 2018-12-23 02:33 | disposition home or self-care (01) ==
LOC: ER 23:43
DX: R10.31 Right lower quadrant pain (principal); R10.32 Left lower quadrant pain; R11.0 Nausea
CPT/HCPCS: 74177; 82150; 83690; 85025; 86140; 99284; Q9967; 82040; 82247; 82310; 82374; 82435; 82565; 82947; 84075; 84132; 84155; 84295; 84450; 84460; 84520

== ENCOUNTER 2018-12-23 18:19 | Emergency (ER) | payer BC, MEDICARE ==
--- NOTE | 2018-12-23 19:05 | ER Report ---
History and Physical Time Seen By MD: 19:04 Hx. of Stated Complaint: abdominal pain across entire lower abdomen. was seen this morning in ER. has stool in bowel. took one dose of miralax at 8am, on a clear liquid diet currently. no relief from pain HPI/ROS CHIEF COMPLAINT: continued abdominal pain HISTORY OF PRESENT ILLNESS: This is a 73 year old female. Having abdominal pain, 3rd visit in [address] scan yesterday, unchanged from 2 weeks ago. Concern for possible colonic/vaginal fistula, although no current stool from vaginal area. Exam yesterday did not show this and she has an appointment with [facility] on . Awaiting appointment to get into surgery for colonoscopy as well. Denies fevers. Took one dose of Miralax today, no bowel movement yet. On Cipro, switched from Bactrim DS. Hydrocodone for pain, not helping. No fevers. No dysuria, frequency or hematuria. No chest pain. No shortness of breath. Allergies: Coded Allergies: bupropion (Unverified Allergy, Unknown, 12/23/18) smallpox vaccine,chick-embryo,live (Verified Allergy, Unknown, 12/23/18) Home Meds Active Scripts Ondansetron 4 Mg Odt (ONDANSETRON 4 MG ODT) 4 Mg Tab.rapdis, 4 MG PO Q6H PRN for NAUSEA/VOMITING, #20 TAB 0 Refills Prov:JORDIN KRUSE MD 12/23/18 Metronidazole (METRONIDAZOLE) 500 Mg Tablet, 500 MG PO TID, #30 TAB 0 Refills Prov:JORDIN KRUSE MD 12/23/18 Oxycodone Hcl/Acetaminophen (PERCOCET 5-325 MG TABLET) 1 Each Tablet, 1 EACH PO Q4H PRN for PAIN, #12 TAB 0 Refills Prov:JORDIN KRUSE MD 12/23/18 Ondansetron 4 Mg Odt (ONDANSETRON 4 MG ODT) 4 Mg Tab.rapdis, 4 MG PO Q6H PRN for NAUSEA/VOMITING, #10 TAB Prov:KEVIN ZAMORA DO 12/21/18 Hydrocodone Bit/Acetaminophen (HYDROCODON-ACETAMINOPHEN 5-325) 1 Each Tablet, 1 EACH PO Q4-6H PRN for PAIN, #12 TAKE ONE TABLET BY MOUTH EVERY 4-6 HOURS NEEDED FOR PAIN Prov:KEVIN ZAMORA DO 12/21/18 Ciprofloxacin Hcl 500 Mg Tab (CIPRO 500 MG TAB) 500 Mg Tablet, 500 MG PO BID for infection, #14 Prov:KEVIN ZAMORA DO 12/21/18 Reported Medications Levothyroxine Sodium (LEVOTHYROXINE SODIUM) 50 Mcg Tablet, 50 MCG PO QDAY, TAB 12/02/18 Reviewed Nurses Notes: Yes Hx Smoking: No Smoking Status: Never Smoker Exposure to Second Hand Smoke?: No Hx Substance Use Disorder: No Hx Alcohol Use: No Constitutional Vital Sign - Last 24 Hours 12/23/18 12/23/18 12/23/18 12/23/18 18:49 18:52 18:54 19:00 Temp 99.4 Pulse ??? 88 Resp 16 B/P (MAP) 191/100 (130) 191/100 175/89 (117) Pulse Ox 90 O2 Delivery Room Air 12/23/18 12/23/18 12/23/18 12/23/18 19:04 19:19 19:30 19:34 Pulse 85 87 88 B/P (MAP) 165/94 (117) Pulse Ox 92 95 91 12/23/18 12/23/18 12/23/18 19:49 20:00 20:04 Pulse 90 88 B/P (MAP) 150/86 (107) Pulse Ox 91 89 Physical Exam General Appearance: The patient is alert, has no immediate need for airway protection and no current signs of toxicity. Respiratory: Breathing easily, clear. Cardiac: regular rate and rhythm Gastrointestinal: Abdomen is a little distended, has diffuse discomfort, worse in right lower abdomen. DIFFERENTIAL DIAGNOSIS: After history and physical exam differential diagnosis was considered for continued abdominal pain. Will repeat labs. Do not see evidence of acute abdomen, and would not recommend repeat imaging, pain is essentially unchanged. Reviewed the past 3 notes over the last 2 days and 2 weeks ago. Reviewed all of the recent imaging and labs. Medical Decision Making Data Points Result Diagram: 12/23/18200012/23/182000 Laboratory Hematology Test 12/23/18 20:01 Red Blood Count 3.96 M/uL (4.17-5.56) Mean Corpuscular Volume 85.9 fL (80.0-96.0) Mean Corpuscular Hemoglobin 28.5 pg (26.0-33.0) Mean Corpuscular Hemoglobin Concent 33.2 g/dL (32.0-36.0) Red Cell Distribution Width 14.3 % (11.5-14.5) Mean Platelet Volume 7.8 fL (7.2-11.1) Neutrophils (%) (Auto) 48.0 % (39.4-72.5) Lymphocytes (%) (Auto) 29.2 % (17.6-49.6) Monocytes (%) (Auto) 20.5 % (4.1-12.4) Eosinophils (%) (Auto) 1.6 % (0.4-6.7) Basophils (%) (Auto) 0.7 % (0.3-1.4) Nucleated RBC Relative Count (auto) 0.0 /100WBC Neutrophils # (Auto) 3.0 K/uL (2.0-7.4) Lymphocytes # (Auto) 1.8 K/uL (1.3-3.6) Monocytes # (Auto) 1.3 K/uL (0.3-1.0) Eosinophils # (Auto) 0.1 K/uL (0.0-0.5) Basophils # (Auto) 0.0 K/uL (0.0-0.1) Nucleated RBC Absolute Count (auto) 0.00 K/uL Peripheral Blood Smear Yes Y/N Sodium Level 137 mmol/L (137-145) Potassium Level 3.7 mmol/L (3.5-5.0) Chloride Level 100 mmol/L (98-107) Carbon Dioxide Level 27 mmol/L (22-31) Blood Urea Nitrogen 8 mg/dl (7-18) Creatinine 0.90 mg/dl (0.52-1.04) Glomerular Filtration Rate Calc > 60.0 Random Glucose 90 mg/dl (75-110) Calcium Level 9.0 mg/dl (8.4-10.2) Total Bilirubin 0.6 mg/dl (0.2-1.3) Aspartate Amino Transf (AST/SGOT) 29 U/L (0-35) Alanine Aminotransferase (ALT/SGPT) 38 U/L (0-56) Alkaline Phosphatase 56 U/L (0-126) Total Protein 6.9 g/dl (6.3-8.2) Albumin 4.0 g/dl (3.5-5.0) Chemistry Test 12/23/18 20:01 White Blood Count 6.3 k/uL (4.5-11.0) Red Blood Count 3.96 M/uL (4.17-5.56) Hemoglobin 11.3 g/dL (12.0-16.0) Hematocrit 34.0 % (34.0-47.0) Mean Corpuscular Volume 85.9 fL (80.0-96.0) Mean Corpuscular Hemoglobin 28.5 pg (26.0-33.0) Mean Corpuscular Hemoglobin Concent 33.2 g/dL (32.0-36.0) Red Cell Distribution Width 14.3 % (11.5-14.5) Platelet Count 213 K/uL (150-450) Mean Platelet Volume 7.8 fL (7.2-11.1) Neutrophils (%) (Auto) 48.0 % (39.4-72.5) Lymphocytes (%) (Auto) 29.2 % (17.6-49.6) Monocytes (%) (Auto) 20.5 % (4.1-12.4) Eosinophils (%) (Auto) 1.6 % (0.4-6.7) Basophils (%) (Auto) 0.7 % (0.3-1.4) Nucleated RBC Relative Count (auto) 0.0 /100WBC Neutrophils # (Auto) 3.0 K/uL (2.0-7.4) Lymphocytes # (Auto) 1.8 K/uL (1.3-3.6) Monocytes # (Auto) 1.3 K/uL (0.3-1.0) Eosinophils # (Auto) 0.1 K/uL (0.0-0.5) Basophils # (Auto) 0.0 K/uL (0.0-0.1) Nucleated RBC Absolute Count (auto) 0.00 K/uL Peripheral Blood Smear Yes Y/N Glomerular Filtration Rate Calc > 60.0 Calcium Level 9.0 mg/dl (8.4-10.2) Total Bilirubin 0.6 mg/dl (0.2-1.3) Aspartate Amino Transf (AST/SGOT) 29 U/L (0-35) Alanine Aminotransferase (ALT/SGPT) 38 U/L (0-56) Alkaline Phosphatase 56 U/L (0-126) Total Protein 6.9 g/dl (6.3-8.2) Albumin 4.0 g/dl (3.5-5.0) ED Course/Re-evaluation ED Course Labs unremarkable. See instructions below, felt like adding metronidazole to the Cipro would be beneficial. Also bowel cleanout with bowel prep using Gatorade and MiraLAX. Decision to Disposition Date: December 23, 2018 Decision to Disposition Time: 20:44 Depart Departure Latest Vital Signs Vital Signs Date Time Temp Pulse Resp B/P (MAP) Pulse Ox O2 Delivery O2 Flow Rate FiO2 12/23/18 20:04 88 89 12/23/18 20:00 150/86 (107) 12/23/18 18:54 99.4 16 Room Air Impression: Primary Impression: Abdominal pain Condition: Condition Unchanged Disposition: HOME OR SELF-CARE Referrals: CARMEN BEE MD (PCP) New Scripts Ondansetron 4 Mg Odt (ONDANSETRON 4 MG ODT) 4 Mg Tab.rapdis 4 MG PO Q6H PRN for NAUSEA/VOMITING, #20 TAB 0 Refills Prov: JORDIN KRUSE MD 12/23/18 Metronidazole (METRONIDAZOLE) 500 Mg Tablet 500 MG PO TID, #30 TAB 0 Refills Prov: JORDIN KRUSE MD 12/23/18 Oxycodone Hcl/Acetaminophen (PERCOCET 5-325 MG TABLET) 1 Each Tablet 1 EACH PO Q4H PRN for PAIN, #12 TAB 0 Refills Prov: JORDIN KRUSE MD 12/23/18 Additional Instructions: Keep taking your Cipro. Add in the antibiotic Metronidazole (Flagyl) 500mg three times a day to cover other types of colon infections. Instead of hydrocodone for pain, start Percocet 5/325, one every 4 hours as needed for pain. Take Zofran 4mg, one every 6 hours as needed for nausea. Bowel Prep: Take the small bottle of Miralax and mix with 128 fluid ounces of gatorade tomorrow morning. (Any color of Gatorade except red). Drink this over the next 3-4 hours. This will cause significant diarrhea for a few hours. Keep drinking other fluids to prevent dehydration. Stick with a clear liquid diet after this. Follow-up with [facility] on Tuesday as planned. We would like to have you try to get in with Dr. Grewal or Dr. Alvarado as soon as possible as well. Problem Qualifiers Primary Impression: Abdominal pain Abdominal location: right lower quadrant Qualified Codes: R10.31 - Right lower quadrant pain JORDIN KRUSE MD December 23, 2018 19:05
[2018-12-23 20:00] VITALS: BP 150/86
[2018-12-23 20:26] LABS: PLATELET COUNT, AUTOMATED 213 K/uL (150-450)
[2018-12-23] MEDS ORDERED: oxyCODON/ACET (*)5/325MG (CII) 1 TAB TAB PO ONE (20:45)
[2018-12-23] MEDS ORDERED: oxyCODONE/ACETAMIN 5/325MG TH 2 TAB/BOTTLE PO ONE (20:45)
[2018-12-23] MEDS ORDERED: METRONIDAZOLE 500 MG TABLET PO ONE (20:45)
[2018-12-23] MEDS ORDERED: ONDANSETRON 4 MG ODT TH SL ONE (20:45)
[2018-12-23] MEDS ORDERED: METR500T15 PO ×2 (20:49→20:59)
[2018-12-23] MEDS ORDERED: ONDA4TAB9 PO ×2 (20:49→20:59)
[2018-12-23] MEDS ORDERED: OXYC-865 PO (20:49)
== END 2018-12-23 21:00 | disposition home or self-care (01) ==
LOC: ER 18:58
DX: R10.31 Right lower quadrant pain (principal)
CPT/HCPCS: 36415; 85025; 99283; A9270; Q0162; 82040; 82247; 82310; 82374; 82435; 82565; 82947; 84075; 84132; 84155; 84295; 84450; 84460; 84520; S0119

== ENCOUNTER 2018-12-24 16:18 | Inpatient (IN) | payer BC, MEDICARE ==
[~2018-12-24] VITALS: Ht 154.9 cm; Wt 92.6 kg
[~2018-12-24 16:18] MED LIST changes: +METR500T15 PO; +OXYC-865 PO
--- NOTE | 2018-12-24 16:54 | ER Report ---
History and Physical Time Seen By MD: 16:47 Hx. of Stated Complaint: PATEINT RETURNS WITH ABDOMINAL PAIN HPI/ROS CHIEF COMPLAINT: abdominal pain HISTORY OF PRESENT ILLNESS: Pt here for evaluation of abdominal pain. Pt has had abd pain since mid december. Pain started low on right and goes across lower abdomen to left. PT came to the emergency department for this pain on December 15,,, and today. Pt has had two cat scans which revealed diverticulosis, questionable fistula between sigmoind colon and vagina, focal thickening of sigmoid colon and hazy appearacne of fat surrounding bladder and vagina. Pt has been placed on Cipro and Flagyl and states that has not helped with the pain. PT was told to try a bowel clearing prep using gatorade and miralax which she started at 9am today. PT has not been able to have a bm accept for two "adamaris" she had while driving to ed. Pt has an appt with machine i cutter to see Dr. Lea on Tuesday. Pt was suggested to follow up with surgery for colonoscopy but has not scheduled that appointment yet. Pt has never had colonoscopy. pt denies fevers. no vomiting. + nausea. Pt has had her appendix and her uterus out surgically. REVIEW OF SYSTEMS: Constitutional: No fever, no chills. Eyes: No discharge. ENT: No sore throat. Cardiovascular: No chest pain, no palpitations. Respiratory: No cough, no shortness of breath. Gastrointestinal: + abdominal pain, +nausea, No vomiting. Genitourinary: No hematuria. Musculoskeletal: No back pain. Skin: No rashes. Neurological: No headache. Allergies: Coded Allergies: bupropion (Unverified Allergy, Unknown, 12/23/18) smallpox vaccine,chick-embryo,live (Verified Allergy, Unknown, 12/23/18) Home Meds Active Scripts Ondansetron 4 Mg Odt (ONDANSETRON 4 MG ODT) 4 Mg Tab.rapdis, 4 MG PO Q6H PRN for NAUSEA/VOMITING, #20 TAB 0 Refills Prov:JORDIN KRUSE MD 12/23/18 Metronidazole (METRONIDAZOLE) 500 Mg Tablet, 500 MG PO TID, #30 TAB 0 Refills Prov:JODRIN KRUSE MD 12/23/18 Oxycodone Hcl/Acetaminophen (PERCOCET 5-325 MG TABLET) 1 Each Tablet, 1 EACH PO Q4H PRN for PAIN, #12 TAB 0 Refills Prov:JORDIN KRUSE MD 12/23/18 Ondansetron 4 Mg Odt (ONDANSETRON 4 MG ODT) 4 Mg Tab.rapdis, 4 MG PO Q6H PRN for NAUSEA/VOMITING, #10 TAB Prov:KEVIN ZAMORA DO 12/21/18 Hydrocodone Bit/Acetaminophen (HYDROCODON-ACETAMINOPHEN 5-325) 1 Each Tablet, 1 EACH PO Q4-6H PRN for PAIN, #12 TAKE ONE TABLET BY MOUTH EVERY 4-6 HOURS NEEDED FOR PAIN Prov:KEVIN ZAMORA DO 12/21/18 Ciprofloxacin Hcl 500 Mg Tab (CIPRO 500 MG TAB) 500 Mg Tablet, 500 MG PO BID for infection, #14 Prov:KEVIN ZAMORA DO 12/21/18 Reported Medications Levothyroxine Sodium (LEVOTHYROXINE SODIUM) 50 Mcg Tablet, 50 MCG PO QDAY, TAB 12/02/18 Past Medical/Surgical History Pmhx: hyponatremia, depression, arf, htn, hyperlipid, hypothyroid pshx; appy and hyster Hx Smoking: No Smoking Status: Never Smoker Exposure to Second Hand Smoke?: No Hx Substance Use Disorder: No Hx Alcohol Use: No Constitutional Vital Sign - Last 24 Hours 12/24/18 16:36 Pulse 101 Resp 24 B/P (MAP) 197/108 Pulse Ox 90 O2 Delivery Room Air Physical Exam General Appearance: The patient is alert, has no immediate need for airway protection and no signs of toxicity. Eyes: Pupils equal and round no pallor or injection, EOMI ENT: no pharyngeal erythema or exudates, Mucous membranes are moist, TM are nl b/l Respiratory: There are no retractions, lungs are clear to auscultation. Cardiovascular: Regular rate and rhythm. pulses are equal and symmetrical Gastrointestinal: Abdomen is soft and non tender, no masses, bowel sounds normal, no guarding, no rigidity or rebound Neurological: Cranial nerves II-XII grossly intact, no sensory or motor loss Skin: Warm and dry, no rashes. Musculoskeletal: Neck is supple non tender, no vertebral tenderness Extremities are nontender, nonswollen and have full range of motion. DIFFERENTIAL DIAGNOSIS: After history and physical exam differential diagnosis was considered for diverticulitis, chronic abd pain, fistula, colitis, ca, obst ruction, constipation Medical Decision Making Data Points Laboratory Hematology Test 12/24/18 17:15 Urine Color Straw Urine Clarity Clear Urine pH 7.0 pH (4.8-9.5) Urine Specific [place] 1.002 Urine Protein Negative mg/dL (NEGATIVE) Urine Glucose (UA) Negative mg/dL (NEGATIVE) Urine Ketones Negative mg/dL (NEGATIVE) Urine Blood Negative (NEGATIVE) Urine Nitrite Negative (NEGATIVE) Urine Bilirubin Negative (NEGATIVE) Urine Urobilinogen Negative mg/dL (0.2-1.9) Urine Leukocyte Esterase Negative (NEGATIVE) Urine RBC None /HPF (0-2/HPF) Urine WBC None /HPF (0-5/HPF) Urine Squamous Epithelial Cells Few /LPF (NONE-FEW) Urine Bacteria Negative /HPF (NONE-FEW) Urine Mucus None /HPF (NONE-FEW) Chemistry Test 12/24/18 17:15 Urine Color Straw Urine Clarity Clear Urine pH 7.0 pH (4.8-9.5) Urine Specific [place] 1.002 Urine Protein Negative mg/dL (NEGATIVE) Urine Glucose (UA) Negative mg/dL (NEGATIVE) Urine Ketones Negative mg/dL (NEGATIVE) Urine Blood Negative (NEGATIVE) Urine Nitrite Negative (NEGATIVE) Urine Bilirubin Negative (NEGATIVE) Urine Urobilinogen Negative mg/dL (0.2-1.9) Urine Leukocyte Esterase Negative (NEGATIVE) Urine RBC None /HPF (0-2/HPF) Urine WBC None /HPF (0-5/HPF) Urine Squamous Epithelial Cells Few /LPF (NONE-FEW) Urine Bacteria Negative /HPF (NONE-FEW) Urine Mucus None /HPF (NONE-FEW) Urinalysis Test 12/24/18 17:15 Urine Color Straw Urine Clarity Clear Urine pH 7.0 pH (4.8-9.5) Urine Specific [place] 1.002 Urine Protein Negative mg/dL (NEGATIVE) Urine Glucose (UA) Negative mg/dL (NEGATIVE) Urine Ketones Negative mg/dL (NEGATIVE) Urine Blood Negative (NEGATIVE) Urine Nitrite Negative (NEGATIVE) Urine Bilirubin Negative (NEGATIVE) Urine Urobilinogen Negative mg/dL (0.2-1.9) Urine Leukocyte Esterase Negative (NEGATIVE) Urine RBC None /HPF (0-2/HPF) Urine WBC None /HPF (0-5/HPF) Urine Squamous Epithelial Cells Few /LPF (NONE-FEW) Urine Bacteria Negative /HPF (NONE-FEW) Urine Mucus None /HPF (NONE-FEW) ED Course/Re-evaluation ED Course Will check a kub to see where in her bowels is her stool. Will also do a pelvic to check for any stool in her vagina. Pt has also never had UA so will check urine. PT did have blood work on , , and 12/24/2018 5:31:31 pm PELVIC: + yellow grainy material that is fecal smelling in her vaginal vault. Rectal: + air in her rectum. The same yellow grainy material was on glove after the rectal. SPoke wtih Dr. Mccarthy, surgery, who will admit the patient for bowel prep and colonoscopy. 12/24/2018 5:41:[address] Mccarthy is down seeing/admitting patient. Decision to Disposition Date: December 24, 2018 Decision to Disposition Time: 17:41 Depart Departure Latest Vital Signs Vital Signs Date Time Temp Pulse Resp B/P (MAP) Pulse Ox O2 Delivery O2 Flow Rate FiO2 12/24/18 16:36 101 24 197/108 90 Room Air Impression: Primary Impression: Recto-vaginal fistula Additional Impression: Abdominal pain Condition: Stable Disposition: Admitted from ER Referrals: CARMEN BEE MD (PCP) Problem Qualifiers Additional Impression: Abdominal pain Abdominal location: lower abdomen, unspecified Qualified Codes: R10.30 - Lower abdominal pain, unspecified SAHCI SHABAZZ DO December 24, 2018 16:54
--- NOTE | 2018-12-24 17:30 | RADIOLOGY IMAGING REPORT ---
[place] [facility] [place] NAME: Chely Maynard : 1945 MR: [id number] V: [id number] EXAM DATE: ORDERING PHYSICIAN: SACHI SHABAZZ TECHNOLOGIST: Location: Patient: Chely Maynard : 1945 Visit/Account:[id number] Date of Sevice: 12/24/2018 Examination: KUB SINGLE VIEW ABDOMEN Comparison: None. History: Lower abdominal pain for 4 days. Constipation. Findings: No evidence of acute disease in the visualized lower thorax. Bowel gas pattern is within normal limits. Minimal stool in the colon and rectum. No evidence of mass effect or organomegaly. No suspicious soft tissue calcifications. Osseous structures are intact. Lower lumbar spine degenerative change. IMPRESSION: Minimal stool in the colon and rectum. Report Dictated By: Faustino Escobar MD at 12/24/2018 5:24 PM Report E-Signed By: Faustino Escobar MD at 12/24/2018 5:26 PM WSN:[id number]
[2018-12-24 18:47] VITALS: BP 172/94
--- NOTE | 2018-12-24 18:47 | Gen Surgery History & Physical ---
History of Present Illness Chief Complaint Abd pain x 5 days History of Present Illness 73 y/o Female with h/o severe hyponatremia (low 112), HTN, Hypothyroidism who presents for her fifth visit to the [facility] ED over the past 10 days for abdominal p ain. Seen previously on December 15,,, with CT scans performed on 12/15 and 12/23. Started on Cipro/Flagyl, referred to ENTRY LEVEL ACCOUNTING CLERK and Surgery- No F/U yet Diffuse abd pain across the lower abd. Poor memory- unsure if she has had change in stool caliper, blood, or vaginal drainage. CT suggestive of severe diverticulosis, and possible vaginal colon fistula. Vaginal exam in ED with stool within the vagina. No prior colonoscopy. 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 HABITS: Tob- quit 40 years ago ETOH- rare No drugs FHX: Mother- Alive , Asthma Father- , ETOH related age 50 Brother- , [place] Sister 1- , MD, DM Sister 2- Alive, Asthma Sister 3- Alive, No medical issues History Home Meds Active Scripts Metronidazole (METRONIDAZOLE) 500 Mg Tablet, 500 MG PO TID, #30 TAB 0 Refills Prov:JORDIN KRUSE MD 12/23/18 Ondansetron 4 Mg Odt (ONDANSETRON 4 MG ODT) 4 Mg Tab.rapdis, 4 MG PO Q6H PRN for NAUSEA/VOMITING, #10 TAB Prov:KEVIN ZAMORA DO 12/21/18 Hydrocodone Bit/Acetaminophen (HYDROCODON-ACETAMINOPHEN 5-325) 1 Each Tablet, 1 EACH PO Q4-6H PRN for PAIN, #12 TAKE ONE TABLET BY MOUTH EVERY 4-6 HOURS NEEDED FOR PAIN Prov:KEVIN ZAMORA DO 12/21/18 Ciprofloxacin Hcl 500 Mg Tab (CIPRO 500 MG TAB) 500 Mg Tablet, 500 MG PO BID for infection, #14 Prov:KEVIN ZAMORA DO 12/21/18 Reported Medications Levothyroxine Sodium (LEVOTHYROXINE SODIUM) 50 Mcg Tablet, 50 MCG PO QDAY, TAB 12/02/18 Discontinued Scripts Ondansetron 4 Mg Odt (ONDANSETRON 4 MG ODT) 4 Mg Tab.rapdis, 4 MG PO Q6H PRN for NAUSEA/VOMITING, #20 TAB 0 Refills Prov:JORDIN KRUSE MD 12/23/18 Oxycodone Hcl/Acetaminophen (PERCOCET 5-325 MG TABLET) 1 Each Tablet, 1 EACH PO Q4H PRN for PAIN, #12 TAB 0 Refills Prov:JORDIN KRUSE MD 12/23/18 Allergies: Coded Allergies: bupropion (Unverified Allergy, Unknown, 12/23/18) smallpox vaccine,chick-embryo,live (Verified Allergy, Unknown, 12/23/18) Review of Systems Constitutional: No Fever, No Weight Loss, No Weight Gain, No Chills, No Night Sweats Neurological: Confusion; No Syncope, No Weakness, No Dizziness, No Slurred Speech Eyes: No Vision Change, No Loss of Vision ENT: No Hearing Loss, No Sore Throat Cardiovascular: No Chest Pain Respiratory: No Shortness of Breath, No Cough, No Wheezing Gastrointestinal: Nausea; No Vomiting, No Diarrhea, No Dysphagia, No Constipation, No Early Satiety, No Hematemesis, No Hematochezia, No Melena; Abdominal Pain Genitourinary: No Dysuria, No Hematuria, No Urinary Incontinence Musculoskeletal: Impaired Mobility; No Pain, No Sprain, No Strain Psychiatric: No Depression, No Anxiety Other Can ambulate 2 city blocks without stopping; Stops for SOB; No stairs to climb to assess this Exam General Appearance: Alert, Awake, No Acute Distress, Afebrile Neuro: Other (Memory loss: Wrong year (201=28), Wrong prior president (Nascimento), Correct hospital /location) Eyes: PERRLA, Other (EOMI) ENT: Moist Mucous Membranes, Posterior Pharynx Clear, Other (No teeth present) Neck: No Masses, Other (No bruit) Cardiovascular: Normal Rhythm & Peripheral Pulses, Regular Rate and Rhythm, No Edema Respiratory: No Respiratory Distress, Clear to Auscultation GI: Other (Soft, No peritoneal signs, + RUQ tenderness, + Suprapubic tenderness, Obese, active bowel sounds; Rectal- no stool, no blood, no mass) : Other (Vagina with liquid stool like substance) Lymph: No Adenopathy Extremities: Soft and Non Tender, Warm, Pulses, Perfused, Edema Integumentary: Skin Intact without Lesion / Mass; No Scaly / Dry Skin, No Jaundice, No Pallor, No Cyanosis Psych: Appropriate Mood & Affect, Other (Alert and orineted to person and place; Poor recent and past memory) Medical Decision Making Data Points Result Diagram: 12/25/18 0553 12/25/18 0553 ALL LABS reviewed by me 12/23/18: CBC and Comprehensive metabolic panel- essentially normal 12/24/17: UA- negative EKG / Imaging Monitor Interpretation: Normal Sinus Rhythm Imaging ABD/PELVIS CT SCAN 12/15/18: (Reviewed by me) Pelvic structures: Status post hysterectomy. The vagina is along the superior surface of the urinary bladder. There is mild stranding and haziness in the soft tissues about the vagina with linear tract of soft tissue noted to extend from the upper portion of the vagina to the sigmoid colon. Bowel: Extensive colonic diverticulosis. No definite evidence of acute di verticulitis. Peritoneum/retroperitoneum/mesenteries: Mild stranding and haziness in the fat planes along the vagina and urinary bladder. No intraperitoneal free air or free fluid. Blood Vessels: Negative. IMPRESSION: There is haziness and stranding in the fat planes along the vagina and urinary bladder which probably represent chronic changes, however, acute inflammation in this region is not excluded. There is a linear tract of soft tissue which extends from the sigmoid colon to the upper portion of the vagina which may be sequela of previous inflammation, however, a colovaginal fistula is not excluded. ABD/PELVIS CT SCAN 12/22: (Reviewed by me) 1. Unchanged questionable fistulae between the sigmoid colon and the vagina. Please clinically correlate with any feculent material in the vagina. 2. Pancolonic diverticulosis without convincing acute diverticulitis. 3. There is focal thickening of the sigmoid colon. While this could be sequela of recent or mild diverticulitis, if patient has not had a recent negative colonoscopy, colonoscopy is recommended to ensure no underlying lesion. 4. Hazy appearance of the fat surrounding the bladder and vagina. Reportedly, patient is being treated for UTI. KUB 12/24/18: (Reviewed by me) Minimal stool in the colon and rectum. Assessment and Plan Problems: (1) Diverticulosis of colon Status: Chronic Assessment & Plan: Needs Colonoscopy to assess bowel, R/O cancer (2) Obesity (BMI 30-39.9) Status: Chronic Assessment & Plan: BMI 38: Carb controlled diet once taking po (3) Memory loss Status: Chronic (4) Recto-vaginal fistula Status: Acute Assessment & Plan: Admit; IV ABX, Bowel preparation, Colonoscopy, Sigmoid colectomy; Check CXR and EKG preop (5) Abdominal pain Status: Acute Assessment & Plan: Pain medication as needed RUQ Ultrasound to assess gallbladder for wall thickening and stones (6) Hypertension Status: Chronic Assessment & Plan: Currently not on meds (7) Hypothyroidism Status: Chronic Assessment & Plan: Synthroid Time Spent: > 30 min (I spent a total of 75 minutes in the ED reviewing this pts medical records, H&P, consultation and coordination with Dr Nida Leahy from EM in regards to potential diagnosis and treatment plan) Venous Thromboembolism VTE Risk Physician Assess for VTE Risk: Yes Patient's VTE Risk: High Antithrombotics Is Pt On Any Antithrombotics?: Yes Problem Qualifiers (1) Abdominal pain: Abdominal location: lower abdomen, unspecified Qualified Codes: R10.30 - Lower abdominal pain, unspecified (2) Hypertension: Hypertension type: essential hypertension Qualified Codes: I10 - Essential (primary) hypertension LAURA JOHNSON MD December 24, 2018 18:47
[2018-12-24] MEDS ORDERED: ACETAMINOPHEN 325 MG TAB PO PRN (18:50)
[2018-12-24] MEDS ORDERED: ONDANSETRON 4 MG/2 ML VIAL IVP PRN (18:50)
[2018-12-24] MEDS ORDERED: HYDROmorphone HCL 2 MG/ML SDV IVP PRN (18:50)
[2018-12-24] MEDS ORDERED: NALOXONE HCL 0.4 MG/ML VIAL IVP PRN (18:50)
[2018-12-24] MEDS ORDERED: APAP/HYDROCODONE 325/5 TAB PO PRN (18:50)
[2018-12-24] MEDS: KCL/D1/2NS 20 MEQ 1000 ML 1,000 ML IV PRN (19:36)
--- NOTE | 2018-12-24 19:43 | EKG ---
FACILITY: [facility] PATIENT NAME: ROSALIO ROSAS : [id number] MR: [id number] V: [id number] EXAM DATE: ORDERING PHYSICIAN: LAURA JOHNSON TECHNOLOGIST: YOLA Test Reason : PRE-OP Blood Pressure : / mmHG Vent. Rate : 088 BPM Atrial Rate : 088 BPM P-R Int : 178 ms QRS Dur : 082 ms QT Int : 388 ms P-R-T Axes : 062 074 068 degrees QTc Int : 469 ms Normal sinus rhythm Normal ECG Confirmed by ROB BOJORQUEZ ([id number]) on 12/25/2018 2:14:06 AM Referred By: Confirmed By:ROB BOJORQUEZ
[2018-12-24] MEDS ORDERED: PEG (High)/E-LYTE SOLN 4000 ML PO ONE (20:00)
[2018-12-24] MEDS ORDERED: ENOXAPARIN 40 MG/0.4ML SYR SC SCH (20:00)
[2018-12-24] MEDS: FAMOTIDINE 20 MG TAB PO SCH (20:59)
[2018-12-24] MEDS: PIPERACILLIN/TAZO*3.375GM VIAL 3.375 GM in NS(*) 0.9% 100 ML MINI-BAG 100 ML IVPB SCH (21:00)
[2018-12-24 23:26] VITALS: BP 185/100
[2018-12-25] MEDS: PIPERACILLIN/TAZO*3.375GM VIAL 3.375 GM in NS(*) 0.9% 100 ML MINI-BAG 100 ML IVPB SCH ×3 (02:25→13:57)
[2018-12-25] MEDS ORDERED: LEVOTHYROXINE SOD 0.05 MG TAB PO SCH (06:00)
[2018-12-25 06:07] LABS: PLATELET COUNT, AUTOMATED 196 K/uL (150-450)
[2018-12-25 06:21] LABS: INR 1.06
[2018-12-25 06:42] VITALS: BP 166/102
[2018-12-25] MEDS: KCL/D1/2NS 20 MEQ 1000 ML 1,000 ML IV PRN (08:13)
[2018-12-25] MEDS: FAMOTIDINE 20 MG TAB PO SCH (08:15)
[2018-12-25] MEDS ORDERED: MAGNESIUM SUL* 2 GM/50 ML IVPB 50 ML IVPB ONE (09:25)
--- NOTE | 2018-12-25 09:54 | RADIOLOGY IMAGING REPORT ---
FACILITY: [facility] PATIENT NAME: Chely Maynard : 1945 MR: [id number] V: [id number] EXAM DATE: ORDERING PHYSICIAN: LAURA JOHNSON TECHNOLOGIST: Location: [facility] Patient: Chely Maynard : 1945 Visit/Account:[id number] Date of Sevice: 12/24/2018 Technique: CHEST SINGLE AP HISTORY: Preop CXR Comparison studies: October 20, 2016 FINDINGS: No acute airspace consolidation. Noted is left basilar atelectasis and/or scarring. There remains prominence of the central bronchopulmonary vasculature. The cardiac silhouette is unchanged . IMPRESSION: 1. No acute cardiopulmonary process. 2. Chronic findings. Report Dictated By: Kevin Maza DO at 12/25/2018 9:45 AM Report E-Signed By: Kevin Maza DO at 12/25/2018 9:50 AM WSN:[email or web address]
--- NOTE | 2018-12-25 09:55 | RADIOLOGY IMAGING REPORT ---
FACILITY: [facility] [place] PATIENT NAME: Chely Maynard : 1945 MR: [id number] V: [id number] EXAM DATE: ORDERING PHYSICIAN: LAURA JOHNSON TECHNOLOGIST: Location: [facility] [place] Patient: Chely Maynard : 1945 Visit/Account:[id number] Date of Sevice: 12/25/2018 GALLBLADDER HISTORY: abd pain, stone COMPARISON: CT abdomen pelvis December 22, 2018 FINDINGS: Gallbladder: There is shadowing stones seen within the gallbladder. There is a positive Ruffin sign by technologist notation Liver: Mildly enlarged Common duct: Normal, 7.1 mm diameter. Pancreas: Obscured by bowel gas Right kidney: No evidence of hydronephrosis. The right kidney measures 11.9 cm in length Upper abdominal aorta and IVC: Patent. Ascites: None visualized. IMPRESSION: Cholelithiasis although no evidence of biliary ductal dilatation. There was a positive Ruffin sign b y technologist notation Mild hepatomegaly Report Dictated By: Renuka Lunsford MD at 12/25/2018 9:48 AM Report E-Signed By: Renuka Lunsford MD at 12/25/2018 9:51 AM WSN:[email or web address]
--- NOTE | 2018-12-25 10:22 | General Surgery Progress Note ---
Subjective Progress Notes Subjective Poor memory. Tolerated 1/2 of Go Lytely. Stopped due to nausea. + Flatus. Abd pain- present, stable Patient Complains of: Neurological: No: Syncope, Weakness, Dizziness Cardiovascular: No: Chest Pain, Palpitations Respiratory: No: Cough, Shortness of Breath Gastrointestinal: Flatus, Bowel Movement (With go Lytely- still with stool passage); No Nausea, No Vomiting Genitourinary: No Dysuria Musculoskeletal: Impaired Mobility Physical Exam Vital Signs Date Time Temp Pulse Resp B/P (MAP) Pulse Ox O2 Delivery O2 Flow Rate FiO2 12/25/18 08:12 83 12/25/18 06:42 98.9 127 19 166/102 (123) Nasal Cannula 4.0 Intake and Output 12/25/18 07:00 Intake Total 200 ml Output Total 30 ml Balance 170 ml Intake IV Total 200 ml Output Urine Total 30 ml # Voids 2 # Bowel Movements 8 General Appearance: Alert, Awake, No Acute Distress, Afebrile Neuro: No Gross deficits Eyes: PERRLA, Other (EOMI) ENT: Oropharynx Clear, Other (No teeth) Cardiovascular: Normal Rhythm & Peripheral Pulses, Regular Rate and Rhythm Respiratory: No Respiratory Distress, Clear to Auscultation GI: Other (Soft, Obese, Tender in midepigastric region and suprapubic region) : No CVA Tenderness Musculoskeletal: No Weakness/Pain Extremities: Warm, Pulses, Perfused, Edema (trace pitting edema) Psych: Appropriate Mood & Affect, Other (Alert and oriented to person and place only) Result Diagram: 12/25/18 0553 12/25/18 0553 Magnesium 1.6 Imaging EKG: NSR CXR: No acute disease GB US: Gallbladder: There is shadowing stones seen within the gallbladder. There is a positive Ruffin sign by technologist notation Liver: Mildly enlarged Common duct: Normal, 7.1 mm diameter. Pancreas: Obscured by bowel gas Right kidney: No evidence of hydronephrosis. The right kidney measures 11.9 cm in length Upper abdominal aorta and IVC: Patent. Ascites: None visualized. IMPRESSION: Cholelithiasis although no evidence of biliary ductal dilatation. There was a positive Ruffin sign by technologist notation Monitor Interpretation: Normal Sinus Rhythm Assessment and Plan Problems: (1) Diverticulosis of colon Status: Chronic Assessment & Plan: Needs Colonoscopy to assess bowel, R/O cancer (2) Obesity (BMI 30-39.9) Status: Chronic Assessment & Plan: BMI 38: Carb controlled diet once taking po (3) Memory loss Status: Chronic (4) Recto-vaginal fistula Status: Acute Assessment & Plan: Admit; IV ABX, Bowel preparation, Colonoscopy, Sigmoid colectomy; Check CXR and EKG preop 12/25/18: On Zosyn; Clear liquids only; GoLytely incompletely tolerated (took only 1/2) ; will attempt to complete bowel prep today to allow for possibility of colonoscopy (5) Abdominal pain Status: Acute Assessment & Plan: Pain medication as needed; Plan: RUQ Ultrasound to assess gallbladder for wall thickening and stones 12/25/18: Still with mild RUQ/Epigastric tenderness; RUQ US with gallstones but n o thickening; Consider HIDA depending on fistula plans (6) Hypertension Status: Chronic Assessment & Plan: Currently not on meds (7) Hypothyroidism Status: Chronic Assessment & Plan: Synthroid (8) Gallstones Status: Acute Assessment & Plan: 12/25/18: Tender in RUQ; + gallstones on US; No wall thickening; CBD 7.1 mm; Nl LFTs and WBC on admit; On ABX for colovaginal fistula and tenderness; Consider HIDA scan vs Cholecystectomy with IOC depending on plan with fistula (9) Hypomagnesemia Status: Acute Assessment & Plan: 12/25/18: Magnesium of 1.6: plan 2 gram replacement (10) Hyponatremia Status: Chronic Assessment & Plan: 12/25/18: Sodium decreased to 135. Has recent hospital admission for severe hyponatremia to 112. Will change IVF to NS. Time Spent: > 30 min (I spent 60 minutes on the floor with the pt and her , with review of US, CXR and EKG images and tracing; documentation and coordination of her care. ) Exam Sepsis Risk: No Definite Risk Problem Qualifiers (1) Abdominal pain: Abdominal location: lower abdomen, unspecified Qualified Codes: R10.30 - Lower abdominal pain, unspecified (2) Hypertension: Hypertension type: essential hypertension Qualified Codes: I10 - Essential (primary) hypertension LAURA JOHNSON MD December 25, 2018 10:19
[2018-12-25 12:07] VITALS: BP 167/96
[2018-12-25 13:58] VITALS: Ht 154.9 cm; Wt 92.6 kg
[2018-12-25] MEDS ORDERED: NORMOSOL R SOLN(*) 1000 ML BAG 1,000 ML IV ONE (16:00)
--- NOTE | 2018-12-25 16:33 | Gen Surgery H&P BLANK ---
GENERAL SURGERY H&P BLANK PROGRESS NOTE ADDENDUM; Pt underwent bowel prep repeat this AM. Stool is now clear.. Plan colonoscopy and vaginal exam under anesthesia to R/O cancer and assess the colovaginal fistula. No prior Colonoscopy. All risk, benefits and complications to include perforation, splenic rupture, inability to fully assess the colon, need for additional procedures discussed and explain with pt and her . All questions answered and informed consent obtained. Anesthesia notified. Micheal Cruz MD 12/25/18 1555 hours MICHEAL CRUZ MD December 25, 2018 16:33
[2018-12-25 18:03] VITALS: BP 169/117
[2018-12-25 18:10] VITALS: BP 172/132
--- NOTE | 2018-12-25 18:31 | Antimicrobial Stewardship ---
Antimicrobial Stewardship Empiricly appropriate: Yes Comment Zosyn 3.375 g IV q6h for colon-vaginal fistula. Approriate Cultures done: No Renal/Hepatic dosing: Yes Reviewed for Drug Interaction: Yes Monitored for Toxicities: Yes Comment To OR today. IV to PO Opportunity: No Determine cumulative duration: Individualized. MICKEY CHRISTOPHER December 25, 2018 18:31
[2018-12-25] MEDS ORDERED: AMOX-556 PO (18:50)
[2018-12-25] MEDS ORDERED: OXYC-865 PO (18:50)
--- NOTE | 2018-12-25 19:01 | Short(Outpt) Discharge Summary ---
Discharge Summary Reason for Hosp/Final Diag: (1) Diverticulosis of colon Status: Chronic Hospital Course & Plan: Colonoscopy performed 12/25/18- No polyps of masses. Extensive diverticulosis (2) Obesity (BMI 30-39.9) Status: Chronic Hospital Course & Plan: BMI 38: Carb controlled diet once taking po (3) Memory loss Status: Chronic (4) Recto-vaginal fistula Status: Acute Hospital Course & Plan: Admit; IV ABX, Bowel preparation, Colonoscopy, Sigmoid colectomy; Check CXR and EKG preop 12/25/18: On Zosyn; Clear liquids only; GoLytely incompletely tolerated (took only 1/2) ; will attempt to complete bowel prep today to allow for possibility of colonoscopy 12/25/18PM: Colonoscopy - great prep, No masses or polyps seen; + vaginal exam revealing small fistula at the vaginal cuff. Dr Scottie Alvarado in the endoscopy suite and visualized the findings. EKG and CXR- No acute dz. PLAN: D/C to home with oral abx and pain meds; F/U for surgery with Dr Alvarado next week. (5) Abdominal pain Status: Acute Hospital Course & Plan: Pain medication as needed; Plan: RUQ Ultrasound to assess gallbladder for wall thickening and stones 12/25/18: RUQ/Epigastric tenderness improved; RUQ US with gallstones but no thickening; PLAN: remove gallbladder at Colon operation; stay on ABX at this time (6) Hypertension Status: Chronic Hospital Course & Plan: Currently not on meds (7) Hypothyroidism Status: Chronic Hospital Course & Plan: Synthroid (8) Gallstones Status: Acute Hospital Course & Plan: 12/25/18: Tender in RUQ; + gallstones on US; No wall thickening; CBD 7.1 mm; Nl LFTs and WBC on admit; On ABX for colovaginal fistula and tenderness; Remove gallbladder with Colon operation (9) Hypomagnesemia Status: Acute Hospital Course & Plan: 12/25/18: Magnesium of 1.6: plan 2 gram replacement (10) Hyponatremia Status: Chronic Hospital Course & Plan: 12/25/18: Sodium decreased to 135. Has recent hospital admission for severe hyponatremia to 112. Will change IVF to NS. Departure Discharge to: Home Discharge Instructions Home Meds Active Scripts Oxycodone Hcl/Acetaminophen (PERCOCET 5-325 MG TABLET) 1 Each Tablet, 1 EACH PO QID PRN for PAIN for 7 Days, #30 TAB 0 Refills Prov:LAURA JOHNSON MD 12/25/18 Amoxicillin/Potassium Clav (AUGMENTIN 500-125 TABLET) 1 Each Tablet, 1 TAB PO Q8H for fistula for 10 Days, #30 TAB 0 Refills Prov:LAURA JOHNSON MD 12/25/18 Metronidazole (METRONIDAZOLE) 500 Mg Tablet, 500 MG PO TID, #30 TAB 0 Refills Prov:JORDIN KRUSE MD 12/23/18 Ondansetron 4 Mg Odt (ONDANSETRON 4 MG ODT) 4 Mg Tab.rapdis, 4 MG PO Q6H PRN for NAUSEA/VOMITING, #10 TAB Prov:KEVIN ZAMORA 12/21/18 Hydrocodone Bit/Acetaminophen (HYDROCODON-ACETAMINOPHEN 5-325) 1 Each Tablet, 1 EACH PO Q4-6H PRN for PAIN, #12 TAKE ONE TABLET BY MOUTH EVERY 4-6 HOURS NEEDED FOR PAIN Prov:KEVIN ZAMORA 12/21/18 Ciprofloxacin Hcl 500 Mg Tab (CIPRO 500 MG TAB) 500 Mg Tablet, 500 MG PO BID for infection, #14 Prov:KEVIN ZAMORA 12/21/18 Reported Medications Levothyroxine Sodium (LEVOTHYROXINE SODIUM) 50 Mcg Tablet, 50 MCG PO QDAY, TAB 12/02/18 Discontinued Scripts Ondansetron 4 Mg Odt (ONDANSETRON 4 MG ODT) 4 Mg Tab.rapdis, 4 MG PO Q6H PRN for NAUSEA/VOMITING, #20 TAB 0 Refills Prov:JORDIN KRUSE MD 12/23/18 Oxycodone Hcl/Acetaminophen (PERCOCET 5-325 MG TABLET) 1 Each Tablet, 1 EACH PO Q4H PRN for PAIN, #12 TAB 0 Refills Prov:JORDIN KRUSE MD 12/23/18 Diet: Regular (Low carbohydrate low fat diet until surgery) Activity: As Tolerated Special Instructions: Call Dr Scottie Alvarado ([place])'s office to schedule surgery for next week. Stay on antibiotics until that time. Light diet recommended. Surgery clinic: Nurse [phone] or Main number [phone] Stay on oxygen until cleared by primary care provider- Pt [facility] [place] [facility] Will need an antibiotic and mechanical bowel prep the day before surgery. Call Dr Alvarado's office for the prescription for this. Copies to: MARKOS ALVARADO ; Problem Qualifiers (1) Abdominal pain: Abdominal location: lower abdomen, unspecified Qualified Codes: R10.30 - Lower abdominal pain, unspecified (2) Hypertension: Hypertension type: essential hypertension Qualified Codes: I10 - Essential (primary) hypertension LAURA JOHNSON MD December 25, 2018 19:01
[2018-12-25 19:27] VITALS: BP 141/92
--- NOTE | 2018-12-26 07:59 | OPERATIVE REPORT 1 ---
EVENT DATE: December 25, 2018 SURGEON: Micheal Cruz MD ANESTHESIOLOGIST: Clayton Hoyos MD ANESTHESIA: Propofol. PREOPERATIVE DIAGNOSES 1. Colovaginal fistula. 2. Severe diverticulosis. 3. Obesity, BMI 38. POSTOPERATIVE DIAGNOSES 1. Colovaginal fistula. 2. Severe diverticulosis. 3. Obesity, BMI 38. PROCEDURES PERFORMED 1. Endoscopy of vagina. 2. Colonoscopy. FINDINGS 1. Small, less than 5 mm, hole within the vaginal cuff with air extruding from it, consistent with a colovaginal fistula. 2. Extensive diverticulosis of the sigmoid colon. However, diverticula extending all the way to the cecum sporadically. INDICATION Patient is a 73-year old female who presents with a colovaginal fistula by CT scan. Exam in the emergency department identified some stool within the vagina. Patient was admitted, started on IV antibiotics and underwent a bowel prep. She has never had a colonoscopy previously. DESCRIPTION OF PROCEDURE The patient was brought to the endoscopy room at [facility]. Anesthesia was supported with Propofol. The patient was in the left lateral decubitus position. First, endoscopy carried out of the vagina revealed a small pinpoint lesion at the vaginal cuff. This was consistent with a colovaginal fistula. Next, colonoscopy was performed. The colonoscope was entered over to the cecum using direct visualization. Care was taken on advancing the colonoscope through the sigmoid colon given her extensive diverticulosis. The cecum was confirmed with light reflex as well as palpation. The terminal ileum was unable to be intubated. A small lipoma of the wall was noted approximately 7 cm from the location of the terminal ileum. The colonoscope was then slowly removed and the colon wall was evaluated carefully circumferentially all the way to the anus. No polyps or colon masses were identified. Retroflex within the rectum revealed no evidence of significant hemorrhoids or rectal masses. The colonoscope was then completely removed and gas was evacuated. The patient tolerated the procedure well with no known complications. Dr. Scottie Alvarado, who will be the patient's surgeon, was present in the endoscopy suite to visualize the findings. LEO
== END 2018-12-25 19:54 | disposition home or self-care (01) | DRG 760 ==
LOC: ER 16:25 → MED 18:07
PROVIDERS: ADMIT Surgery; ATTEND Surgery
PROC: 0DJD8ZZ Inspection of Lower Intestinal Tract, Via Natural or Artificial Opening Endoscopic (ICD-10-PCS; 2018-12-25)
PROC: 0UJH8ZZ Inspection of Vagina and Cul-de-sac, Via Natural or Artificial Opening Endoscopic (ICD-10-PCS; principal; 2018-12-25 16:31)
DX: N82.8 Other female genital tract fistulae (principal); E87.1 Hypo-osmolality and hyponatremia; K57.30 Diverticulosis of large intestine without perforation or abscess without bleeding; D17.5 Benign lipomatous neoplasm of intra-abdominal organs; I10 Essential (primary) hypertension; E66.9 Obesity, unspecified; F32.9 Major depressive disorder, single episode, unspecified; R41.3 Other amnesia; K80.80 Other cholelithiasis without obstruction; E83.42 Hypomagnesemia; E78.5 Hyperlipidemia, unspecified; E03.9 Hypothyroidism, unspecified; Z68.38 Body mass index [BMI] 38.0-38.9, adult; Z90.710 Acquired absence of both cervix and uterus; Z87.891 Personal history of nicotine dependence; Z88.7 Allergy status to serum and vaccine; Z88.8 Allergy status to other drugs, medicaments and biological substances
CPT/HCPCS: 36415; 71045; 74018; 76705; 81001; 82040; 82247; 82310; 82374; 82435; 82565; 82947; 83735; 84075; 84132; 84155; 84295; 84450; 84460; 84520; 85025; 85610; 93005; 99284; A4353; J1170; J1650; J2405; J2543; J3475; J3480

== ENCOUNTER 2019-01-04 01:13 | Inpatient (IN) | payer BC, MEDICARE ==
[2018-12-25 13:58] VITALS: Ht 154.9 cm; Wt 92.1 kg
[~2019-01-04] VITALS: Ht 154.9 cm; Wt 92.1 kg
[~2019-01-04 01:13] MED LIST changes: +AMOX-556 PO
[2019-01-04 10:04] VITALS: BP 152/92
[2019-01-04] MEDS ORDERED: FAMOTIDINE 20 MG TAB PO ONE (11:15)
[2019-01-04] MEDS ORDERED: LIDOCAINE/SOD BICARB 8.4% SYR ID ONE (11:15)
[2019-01-04] MEDS ORDERED: MIDAZOLAM 2 MG/2 ML VIAL IVP PRN (11:15)
[2019-01-04] MEDS ORDERED: NORMOSOL R SOLN(*) 1000 ML BAG 1,000 ML IV PRN (11:15)
[2019-01-04] MEDS ORDERED: LEVOFLOXACIN/D5W 750 MG/150 ML 150 ML IVPB ONE (11:15)
[2019-01-04] MEDS ORDERED: metroNIDAZOLE* 500MG/100ML BAG 100 ML IVPB ONE (11:15)
[2019-01-04] MEDS ORDERED: LIDOCAINE MPF 1% 5 ML VIAL ONE (11:43)
[2019-01-04] MEDS ORDERED: DEXAMETHASONE SOD 4 MG/ML VIAL ONE (11:43)
[2019-01-04] MEDS ORDERED: SUGAMMADEX SOD 200 MG/2 ML SDV ONE (11:43)
[2019-01-04] MEDS ORDERED: ONDANSETRON 4 MG/2 ML VIAL ONE (11:43)
[2019-01-04] MEDS ORDERED: ROCURONIUM BROM 10 MG/ML 10 ML ONE ×2 (11:43→13:28)
[2019-01-04] MEDS ORDERED: KETAMINE HCL-NS 50 MG/5 ML SYR ONE (11:43)
[2019-01-04] MEDS ORDERED: PROPOFOL EMUL(*) 10MG/ML 20 ML 20 ML ONE (11:43)
[2019-01-04] MEDS ORDERED: fentaNYL CITR 250 MCG/5 ML AMP ONE (11:43)
[2019-01-04] MEDS ORDERED: HYDROmorphone HCL 2 MG/ML SDV ONE (11:44)
[2019-01-04] MEDS ORDERED: BUPIVACAINE/EPI 0.5% 50ML VIAL INFIL ONE (12:22)
[2019-01-04] MEDS ORDERED: IOPAMIDOL 61% 75 ML INFUS BTL 75 ML ONE (12:23)
[2019-01-04] MEDS ORDERED: ePHEDrine 25 MG/5 ML DISP.SYR IVP ONE (13:27)
[2019-01-04] MEDS ORDERED: KETAMINE HCL 200 MG/20 ML MDV ONE (17:02)
[2019-01-04] MEDS ORDERED: DESFLURANE 240 ML BTL INH ONE (18:01)
[2019-01-04] MEDS ORDERED: ESMOLOL 10 MG/ML 10ML SDV ONE (19:23)
[2019-01-04] MEDS ORDERED: LABETALOL HCL 25 MG/5 ML SYRINGE ONE ×2 (20:33→21:07)
[2019-01-04] MEDS: fentaNYL CITR 100 MCG/2 ML AMP ONE ×2 (20:38→20:53)
--- NOTE | 2019-01-04 22:15 | RADIOLOGY IMAGING REPORT ---
FACILITY: [facility] [place] PATIENT NAME: Chely Maynard : 1945 MR: [id number] V: [id number] EXAM DATE: ORDERING PHYSICIAN: MARKOS SINGH TECHNOLOGIST: Location: [facility] Patient: Chely Maynard : 1945 Visit/Account:[id number] Date of Sevice: 01/04/2019 INDICATION: POST OP, SURGERY CHECK EXAM DATE: 01/04/2019 8:59 PM COMPARISON: 12/24/2018 radiographs, CT abdomen and pelvis 12/22/2018. FINDINGS: AP supine images of the abdomen. Lung bases are grossly clear. Heart size is likely normal. Bowel gas pattern is nonobstructive. No pneumatosis, pneumoperitoneum or portal venous gas. No eviden ce of large volume ascites or mass. Cholecystectomy clips. Surgical drains over the pelvis, as well as cutaneous maxx there are linea r metallic densities overlying the central pelvis. Cutaneous maxx over the inferior aspect of the pelvis and the mid upper abdomen. No acute osseous abnormality. IMPRESSION: 1. Cholecystectomy clips, surgical drains and cutaneous maxx over the abdomen and pelvis. 2. Nonspecific linear metallic densities over the midportion of the pelvis. Correlate with any mate rial external to the patient or surgical material. Report Dictated By: Yunier Antunez MD at 01/04/2019 10:08 PM Report E-Signed By: Yunier Antunez MD at 01/04/2019 10:12 PM WSN:[id number]
[2019-01-04 22:35] VITALS: BP 148/87
--- NOTE | 2019-01-04 22:49 | Post Operative Progress Note ---
Post Operative Progress Note Date: January 04, 2019 Time: 22:47 Surgeon: dr. isadora geiger Motorcycle Engine Assembler: dr. martell Anesthesia: gen, local dr. dutta Pre-Op Diagnosis: colovag fistula, symptomatic cholelithiasis Post-Op Diagnosis: same Procedure(s): lap simgoidectomy, cholecystectomy, ostomy Specimen Removed:(May be N/A): sigmoid, gb Complications: anstomotic breakdown Fluids: iv crystalloid Estimated Blood Loss: 250 ml MARKOS GEIGER January 04, 2019 22:49
[2019-01-04 23:00] VITALS: BP 140/89
[2019-01-04 23:15] VITALS: BP 150/85
--- NOTE | 2019-01-04 23:29 | Hospitalist Consultation ---
History of Present Illness Requesting Physician Dr. Alvarado Reason for Consult Tachycardia History of Present Illness This patient underwent a sigmoidectomy and cholecystectomy earlier this evening. She developed tachycardia towards the end of the procedure. She has no complaints on arrival to the floor. History Problems: (1) Hypothyroidism Status: Chronic (2) Obesity (BMI 30-39.9) Status: Chronic (3) History of appendectomy (4) History of hysterectomy Home Meds Active Scripts Oxycodone Hcl/Acetaminophen (PERCOCET 5-325 MG TABLET) 1 Each Tablet, 1 EACH PO QID PRN for PAIN for 7 Days, #30 TAB 0 Refills Prov:LAURA JOHNSON MD 12/25/18 Amoxicillin/Potassium Clav (AUGMENTIN 500-125 TABLET) 1 Each Tablet, 1 TAB PO Q8H for fistula for 10 Days, #30 TAB 0 Refills Prov:LAURA JOHNSON MD 12/25/18 Ondansetron 4 Mg Odt (ONDANSETRON 4 MG ODT) 4 Mg Tab.rapdis, 4 MG PO Q6H PRN for NAUSEA/VOMITING, #10 TAB Prov:KEVIN ZAMORA DO 12/21/18 Reported Medications Levothyroxine Sodium (LEVOTHYROXINE SODIUM) 50 Mcg Tablet, 50 MCG PO QDAY, TAB 12/02/18 Allergies: Coded Allergies: smallpox vaccine,chick-embryo,live (Verified Adverse Reaction, Intermediate, 01/02/19) HIGH FEVER, bupropion (Unverified Adverse Reaction, Mild, AMNESIA, 01/02/19) CAUSED LOW SODIUM Patient History: FH: Crohn's disease MOTHER FH: diabetes mellitus BROTHER OR SISTER Hx Smoking: Yes Smoking Status: Former Smoker Exposure to Second Hand Smoke?: No When Quit Tobacco?: 40 years ago Caffeine Intake: Coffee Caffeine/Cups Per Day: 2 Hx Alcohol Use: No Hx Substance Use Disorder: No Social Drug Use: Never History of IV Drug Use: No Review of Systems All Systems Reviewed/Normal: Yes Exam Vital Signs Vital Signs Date Time Temp Pulse Resp B/P (MAP) Pulse Ox O2 Delivery O2 Flow Rate FiO2 01/04/19 22:35 98.4 20 148/87 (107) 93 Nasal Cannula 3.0 01/04/19 10:04 87 Neuro: No Gross deficits Eyes: PERRLA Cardiovascular: Regular Rate and Rhythm Respiratory: Clear to Auscultation GI: Abd Soft and Non-Tender Extremities: No Edema Integumentary: No Cyanosis Assessment and Plan Problems: (1) Tachycardia Assessment & Plan: She developed tachycardia during her procedure, but her heart rate was normal on arrival to the medical floor. She has been placed on telemetry and we will monitor overnight. (2) Hypothyroidism Status: Chronic Assessment & Plan: She is on chronic treatment with Synthroid. Venous Thromboembolism Antithrombotics Is Pt On Any Antithrombotics?: Yes ALISSON YO DO January 04, 2019 23:29
[2019-01-04 23:30] VITALS: BP 150/97
[2019-01-04] MEDS: PIPERACILLIN/TAZO*3.375GM VIAL 3.375 GM in NS(*) 0.9% 100 ML MINI-BAG 100 ML IVPB SCH (23:58)
[2019-01-05] VITALS (9 sets, daily range): BP systolic 124–156; BP diastolic 72–105
[2019-01-05] MEDS: APAP/HYDROCODONE 325/7.5 TAB PO PRN ×6 (01:48→23:27)
[2019-01-05] MEDS: NS(*) 0.9% 1000 ML BAG 1,000 ML IV SCH ×3 (04:35→22:36)
[2019-01-05] MEDS: LEVOTHYROXINE SOD 0.05 MG TAB PO SCH (06:13)
[2019-01-05] MEDS: PIPERACILLIN/TAZO*3.375GM VIAL 3.375 GM in NS(*) 0.9% 100 ML MINI-BAG 100 ML IVPB SCH ×4 (06:14→23:27)
[2019-01-05 06:29] LABS: PLATELET COUNT, AUTOMATED 211 K/uL (150-450)
[2019-01-05] MEDS ORDERED: METOPROLOL TART 50 MG TAB PO SCH (09:00)
[2019-01-05] MEDS: ENOXAPARIN 40 MG/0.4ML SYR SC SCH (09:27)
--- NOTE | 2019-01-05 09:45 | Hospitalist Progress Note ---
Subjective Progress Notes Subjective She was found to have tachycardia during the end of surgery 01/04. She does have tachycardia again this morning with rates into the 130's. She is asymptomatic. Per review of the chart, she has been having high heart rates at a clinic visit for the last few weeks. Patient Complains of: Cardiovascular: No: Chest Pain Respiratory: No: Shortness of Breath Physical Exam Vital Signs Date Time Temp Pulse Resp B/P (MAP) Pulse Ox O2 Delivery O2 Flow Rate FiO2 01/05/19 07:42 86 01/05/19 07:42 Nasal Cannula 2.0 01/05/19 07:42 98.1 133 16 124/72 (89) Intake and Output 01/05/19 07:00 Intake Total 7820 ml Output Total 1090 ml Balance 6730 ml Intake Oral 20 ml IV Total 3700 ml Other 4100 ml Output Urine Total 600 ml Stool Total 50 ml Drainage Total 65 ml Estimated Blood Loss 250 ml Other 125 ml # Voids 1 General Appearance: Alert, Awake, No Acute Distress, Afebrile Neuro: No Gross deficits Cardiovascular: Other (regular tachycardic rhythm) Respiratory: No Respiratory Distress, Clear to Auscultation Extremities: Warm, Perfused Psych: Alert & Oriented X3, Appropriate Mood & Affect Result Diagram: 01/05/1954501/05/19545 Assessment and Plan Problems: (1) Tachycardia Assessment & Plan: She developed tachycardia during her procedure, but her heart rate was normal on arrival to the medical floor. She has been placed on telemetry and was noted to have elevated heart rates into the 130s. She is asymptomatic. At a clinic visit two weeks ago, she had heart rates into the 130s also. She will be started on Metoprolol. Continue to monitor. (2) Hypothyroidism Status: Chronic Assessment & Plan: She is on chronic treatment with Synthroid. TSH normal 1 month ago. Exam Sepsis Risk: No Definite Risk VARGAS RIOS PRODUCTION TEAM MANAGER January 05, 2019 09:45
[2019-01-05] MEDS: HYDROmorphone HCL 2 MG/ML SDV IVP PRN ×2 (10:07→15:33)
--- NOTE | 2019-01-05 14:13 | Medical Nutrition Therapy ---
Nutrition Anthropometrics Height (Inches): 61.00 Height (Calculated Centimeters: 154.372012 Weight (Pounds): 203 Weight (Calculated Kilograms): 92.079 BMI: 38.4 Sameer Nutrition Score: Adequate Sameer Nutrition Risk Score: 18 Dietary Referral Nutrition Risk Factors: Wt loss of 3.4 % x 2 weeks Nutrition Risk Comment: 7#over 2 week Physical Findings Physical Appearance: Obese BMI 30-39 Skin Appearance Skin Appearance: Edema Edema Location Modifier: Edema Location: Type of Edema: Degree of Edema: Gastrointestinal Symptoms GI Symtoms: Distended,Tender Change in Bowel Pattern Tube Present: Bowel Sounds: Hypoactive Recent Bowel Pattern: Stool Characteristics: Nutrition/Food History Fair Nutritional Diagnosis Nutritional Risk Acuity 1: Acute/ES Renal Nutritional Risk Acuity 2: Ileostomy Past Medical History: Hypothyroidism, Depression, Tachycardia Nutritional Acuity: 2-Moderate Nutrition Diagnosis: Altered GI Function Nutrition Etiology: Mechanical/Motor Issues Nutrition Problem/Etiology/Sym: colovaginal fistula, new colostomy Energy Requirement: 1385 ([id number] (15-20kcal/kg)) Protein Requirement: 92 Fluid Requirement: 1845 (1kcal/mL) Diet Type: Clear Liquids Nutrition Intervention: Teaching Do Not Serve Any of the Follow: Shannan Nutrition Monitoring & Eval Nutrition Goals: Eat 75-100% Meal, Drink > 1500 cc/day Nutrition Monitoring: Monitor need for nutrition education for colostomy diet recommendations. RD Patient Assessment Time: [address] Assessment Type: RD Assessment Patient Nutrition Acuity: 2-Moderate Follow Up Date: Jan 10, 2019 Nutritional Comment: Reviewed pt medical hx. Admitted for colovaginal fistula. Educated pt and on colostomy diet recommendations to minimize gas production and consume foods that are easy to digest fork tender. Discussed strategies to thicken stool. If pt has high output colostomy would recommend consuming electrolyte drink to prevent dehydration. Encouraged pt to call if they had any questions regarding diet at home. DORENE ADAMS January 05, 2019 12:47
[2019-01-05] MEDS: ONDANSETRON 4 MG/2 ML VIAL IVP PRN (15:25)
--- NOTE | 2019-01-05 17:26 | General Surgery Progress Note ---
Subjective Progress Notes Subjective i saw pt this am and again around midday. doing fine. sore. jesus clears. Physical Exam Vital Signs Date Time Temp Pulse Resp B/P (MAP) Pulse Ox O2 Delivery O2 Flow Rate FiO2 01/05/19 14:57 99.8 124 16 141/81 (101) 94 2.0 01/05/19 11:28 Nasal Cannula Intake and Output 01/05/19 07:00 Intake Total 7820 ml Output Total 1090 ml Balance 6730 ml Intake Oral 20 ml IV Total 3700 ml Other 4100 ml Output Urine Total 600 ml Stool Total 50 ml Drainage Total 65 ml Estimated Blood Loss 250 ml Other 125 ml # Voids 1 General Appearance: No Acute Distress Cardiovascular: Other (tachycardic) GI: Other (abd soft, kodak - serosang, stoma pink) Result Diagram: 01/05/1944 01/05/1944 Assessment and Plan Problems: (1) Recto-vaginal fistula Status: Acute Assessment & Plan: 01/05/19: doing fine. sore. cont clears. on lovenox and abx. d/c mclean. ambulate. serial exams/labs. (2) Colovaginal fistula Exam Sepsis Risk: No Definite Risk MARKOS SINGH January 05, 2019 17:26
--- NOTE | 2019-01-05 17:55 | OPERATIVE REPORT 1 ---
EVENT DATE: January 05, 2019 SURGEON: Ray Alvarado MD ANESTHESIOLOGIST: Artis Salmon MD ANESTHESIA: General and local. OFFICE COORDINATOR RECEPTIONIST: Artis Grewal MD PREOPERATIVE DIAGNOSES 1. Colovaginal fistula. 2. Symptomatic cholelithiasis. POSTOPERATIVE DIAGNOSES 1. Colovaginal fistula. 2. Symptomatic cholelithiasis. PROCEDURES PERFORMED 1. Laparoscopic cholecystectomy. 2. Laparoscopic sigmoidectomy. 3. Takedown of colovaginal fistula. 4. Takedown of splenic flexure. 5. Diverting ileostomy creation. FLUIDS IV crystalloid. ESTIMATED BLOOD LOSS 250 mL. SPECIMENS Sigmoid colon and gallbladder. COMPLICATIONS Anastomotic failure. INDICATIONS This is a 73-year-old female with right-sided pain. She did have stones on imaging. Patient also had stool contents through the vagina and was found to have a colovaginal fistula. A colonoscopy was performed, and diverticulosis was found. On physical exam, patient was stable. Her abdomen was soft. Risks and benefits of the procedure were explained, and consent was signed. DESCRIPTION OF PROCEDURE Patient was taken to the operating room and placed in the supine position. General anesthesia was administered per the anesthesia team. Patient was prepped and draped in the normal sterile fashion. Local analgesia was injected into the dermis at the umbilicus, and a small vertical incision was made. The umbilical stump was grasped and elevated. A Veress needle was inserted, and a pneumoperitoneum was achieved. Veress needle was removed. A 5 mm port was advanced. After injecting local analgesia under direct visualization, two more right-sided 5 mm ports and a 12 mm subxiphoid port were placed. I inspected the abdomen. There was no injury upon entry. The fundus of the gallbladder was grasped and retracted superiorly and laterally. Infundibulum was grasped and retracted. The LigaSure was used to perform the dissection. The cystic artery and cystic duct were cleared of surrounding tissue and seen going directly to the gallbladder. Cystic duct was divided easily with LigaSure. Three clips were placed on the cystic duct, and it was divided sharply between the distal two clips. Gallbladder was taken off the liver bed with LigaSure. It was removed with an Endo Catch bag through the subxiphoid port site. Right upper quadrant was irrigated and suctioned. The irrigant returned clear. Hemostasis was assured. I then placed a 12 mm right lower quadrant port and later a 5 mm left-sided port. I took down the white line of Toldt to mobilize the descending colon. The sigmoid colon was mobilized medially as well. There was inflammation to the abdominal wall. The colovaginal fistula was identified. This area of inflammation was taken down with LigaSure. No hole in the vagina could be seen that needed to be sewn. A soft point on the colon was found proximal to the inflamed area. A window was created in the mesocolon, and a laparoscopic 60 mm blue load from the GI stapler was fired across the colon at this location. Mesocolon was divided with LigaSure. This was taken down distally below the inflamed portion, and laparoscopic 60 mm green loads from the linear stapler were used to divide the colon at the rectosigmoid junction. A Pfannenstiel incision was created. The resected piece of colon was removed through a wound protector placed through the Pfannenstiel incision. A pursestring stitch was then sewn to the distal aspect of the remaining colon. This was dunked back into the abdomen. The Pfannenstiel incision was closed. This was done with 2-0 Vicryl running stitch for the peritoneum and an 0 PDS stitch for the fascia. Dilators were then advanced through the anus, and then the 29 mm EA stapler was advanced through the anus. The stapler was advanced to a point just proximal to the staple line. The spike was deployed. Anvil was mated to the spike. The stapler was closed and was fired. A leak test was performed as well as endoscopy, and it was clear there was a large leak in this anastomosis. Pfannenstiel incision was reopened. The anastomosis was inspected, and the majority of the anastomosis was open. The anastomosis was taken down. Another pursestring stitch with 2-0 Prolene stitch was then placed. Further dissection was performed at the rectosigmoid junction, and another several centimeters of bowel in this area were resected after firing multiple loads of the 60 mm green load from the laparoscopic GI stapler. Another 29 mm stapler was not available; therefore, we used a 25 mm as I was concerned the 33 would have torn the tissue. The 25 mm stapler was then advanced through the anus to the rectal stump. The spike was deployed. The anvil and spike were mated, and the stapler was fired. A leak test was performed, which showed a leak at the anastomosis. Endoscopy was performed. The suspected area was identified. This was partially closed with Endo Clips. A circular incision was made over the right rectus near the level of the umbilicus. Dissection was carried down through the subcutaneous tissue. It was then carried through the fascia. The muscle was split, and the peritoneum was entered. The remaining specimen was removed through this incision. A loop of terminal ileum was then brought up through the defect, and diverting loop ileostomy was matured in Linn fashion with 3-0 Vicryl stitches. A red rubber catheter was used as a stoma andrés. A 15-Azeri drain was then placed in the pelvis and brought out the left-most port site. It was secured in place with a 3-0 nylon stitch. Ports were removed under direct visualization. Hemostasis was assured. Pneumoperitoneum was relieved. Final port was removed. All skin incisions were closed with maxx. The Pfannenstiel incision had been reclosed prior to this using a 2-0 running Vicryl stitch for the peritoneum and an 0 PDS running stitch for the fascia. Appropriate dressings were applied. Patient tolerated the procedure well. There were no complications. [facility] HOSPITALSangeeta
[2019-01-05] MEDS: METOPROLOL TART 50 MG TAB PO SCH (20:16)
[2019-01-06] MEDS: ONDANSETRON 4 MG/2 ML VIAL IVP PRN ×3 (00:42→13:56)
[2019-01-06] MEDS: HYDROmorphone HCL 2 MG/ML SDV IVP PRN ×4 (01:05→16:41)
[2019-01-06] MEDS: APAP/HYDROCODONE 325/7.5 TAB PO PRN ×2 (03:25→07:37)
[2019-01-06 03:30] VITALS: BP 144/105
[2019-01-06] MEDS: LEVOTHYROXINE SOD 0.05 MG TAB PO SCH (05:52)
[2019-01-06] MEDS: PIPERACILLIN/TAZO*3.375GM VIAL 3.375 GM in NS(*) 0.9% 100 ML MINI-BAG 100 ML IVPB SCH ×3 (05:53→17:48)
[2019-01-06 06:24] LABS: PLATELET COUNT, AUTOMATED 183 K/uL (150-450)
[2019-01-06] MEDS ORDERED: NS(*) 0.9% 1000 ML BAG 1,000 ML IV SCH (06:30)
[2019-01-06 06:45] VITALS: BP 142/79
[2019-01-06] MEDS: METOPROLOL TART 50 MG TAB PO SCH ×2 (08:20→21:07)
[2019-01-06] MEDS: ENOXAPARIN 40 MG/0.4ML SYR SC SCH (08:21)
--- NOTE | 2019-01-06 08:24 | Hospitalist Progress Note ---
Subjective Progress Notes Subjective This patient was admitted for sigmoidectomy and cholecystectomy. She had no acute events overnight. Patient Complains of: Cardiovascular: No: Chest Pain Respiratory: No: Shortness of Breath Physical Exam Vital Signs Date Time Temp Pulse Resp B/P (MAP) Pulse Ox O2 Delivery O2 Flow Rate FiO2 01/06/19 07:49 94 Nasal Cannula 3.0 01/06/19 06:45 98.8 72 16 142/79 (100) Intake and Output 01/06/19 07:00 Intake Total 3491 ml Output Total 995 ml Balance 2496 ml Intake Oral 580 ml IV Total 2911 ml Output Urine Total 185 ml Stool Total 300 ml Drainage Total 510 ml # Voids 4 Cardiovascular: Regular Rate and Rhythm Respiratory: Clear to Auscultation Result Diagram: 01/06/1960401/06/19604 Assessment and Plan Problems: (1) Tachycardia Assessment & Plan: She has had intermittent tachycardia and hypertension. She had not previously been on treatment, but was started on metoprolol last evening. We will monitor and adjust her dose as needed. (2) Hypothyroidism Status: Chronic Assessment & Plan: She is on chronic treatment with Synthroid. Exam Sepsis Risk: No Definite Risk ALISSON YO DO Jan 06, 2019 08:24
--- NOTE | 2019-01-06 09:34 | General Surgery Progress Note ---
Subjective Progress Notes Subjective Feels unwell. Complaining of abdominal pain and nausea. Started last night. Patient Complains of: Gastrointestinal: Nausea Physical Exam Vital Signs Date Time Temp Pulse Resp B/P (MAP) Pulse Ox O2 Delivery O2 Flow Rate FiO2 01/06/19 07:49 94 Nasal Cannula 3.0 01/06/19 06:45 98.8 72 16 142/79 (100) Intake and Output 01/06/19 07:00 Intake Total 3491 ml Output Total 995 ml Balance 2496 ml Intake Oral 580 ml IV Total 2911 ml Output Urine Total 185 ml Stool Total 300 ml Drainage Total 510 ml # Voids 4 General Appearance: Awake, Other (ill appearing) Cardiovascular: Regular Rate and Rhythm Respiratory: No Respiratory Distress GI: Other (obese, distended, tympanitic to percussion; incisions with dressings intact, clean/dry; LV serosanguinous; ileostomy is congested deep pink/purple with thin green output in bag) Extremities: Warm, Perfused Result Diagram: 01/06/1960401/06/19604 Monitor Interpretation: Normal Sinus Rhythm Assessment and Plan Problems: (1) Recto-vaginal fistula Status: Acute Assessment & Plan: 01/05/19: doing fine. sore. cont clears. on lovenox and abx. d/c mclean. ambulate. serial exams/labs. 01/06/19: POD#2 from cholecystectomy, sigmoid colectomy and diverting loop ileostomy. Feels unwell this AM, distended and nauseated. Minimal thin output from ileostomy, appears quite congested, will continue to monitor. Will place NPO and resume IVF. Appears to have an ileus. WBC decreased to 16 (20), afebrile, continue Zosyn given intra-abdominal contamination from surgery. Hyponatremia: recently hospitalized a couple months ago with severe hyponatremia. Na 131 this AM. Will start salt tabs, check PM BMP. Ambulate. (2) Colovaginal fistula Exam Sepsis Risk: No Definite Risk IGNACIO BAI MD Jan 06, 2019 09:34
--- NOTE | 2019-01-06 11:20 | Antimicrobial Stewardship ---
Antimicrobial Time Out Antimicrobial Stewardship MD Service: Other (GENERAL SURGERY) Indications: Other (FISTULA/ABD INFECTION) Antimicrobial Used LEVAQUIN 750MG AND FLAGYL X 1 DOSE, SWITCHED TO ZOSYN 3.375G Q6H Start Date: January 04, 2019 Culture Results: No Eligible for PO Conversion Eligable for PO Conversion: No (NPO) Reviewed with Provider Reviewed w/ Provider on Rounds: No Comments Comments ZOSYN FOR ABD INFECTION COVERAGE, NPO AT THIS TIME PEDRITO RISO Jan 06, 2019 11:20
[2019-01-06] MEDS: SODIUM CHLORIDE 1 GR TAB PO SCH ×2 (11:26→21:07)
[2019-01-06] MEDS: NORMOSOL R SOLN(*) 1000 ML BAG 1,000 ML IV PRN (11:26)
[2019-01-06 13:59] VITALS: BP 150/94
--- NOTE | 2019-01-06 15:29 | EKG ---
FACILITY: [facility] PATIENT NAME: ROSALIO ROSAS : [id number] MR: [id number] V: [id number] EXAM DATE: ORDERING PHYSICIAN: IGNACIO BAI TECHNOLOGIST: BELLE Test Reason : PERSISTENT TACHY Blood Pressure : / mmHG Vent. Rate : 123 BPM Atrial Rate : 123 BPM P-R Int : 184 ms QRS Dur : 076 ms QT Int : 310 ms P-R-T Axes : 000 061 034 degrees QTc Int : 443 ms Sinus tachycardia Otherwise normal ECG When compared with ECG of 24-DEC-2018 19:33, No significant change was found Confirmed by ALISSON YO ([id number]) on 01/06/2019 5:43:57 PM Referred By: BHUMIKA Confirmed By:ALISSON YO
[2019-01-06 17:48] VITALS: BP 162/99
[2019-01-06 19:20] VITALS: BP 160/90
[2019-01-06] MEDS ORDERED: ONDANSETRON 4 MG/2 ML VIAL IVP PRN (20:50)
[2019-01-06] MEDS: PROMETHAZINE 25 MG/ML 1 ML AMP IVP PRN (21:07)
[2019-01-06 23:16] VITALS: BP 159/99
[2019-01-07] MEDS: PIPERACILLIN/TAZO*3.375GM VIAL 3.375 GM in NS(*) 0.9% 100 ML MINI-BAG 100 ML IVPB SCH ×4 (00:03→17:29)
[2019-01-07] MEDS: HYDROmorphone HCL 2 MG/ML SDV IVP PRN (02:16)
[2019-01-07 02:19] VITALS: BP 149/79
[2019-01-07] MEDS: NORMOSOL R SOLN(*) 1000 ML BAG 1,000 ML IV PRN (04:54)
[2019-01-07 05:35] LABS: PLATELET COUNT, AUTOMATED 188 K/uL (150-450)
[2019-01-07] MEDS: LEVOTHYROXINE SOD 0.05 MG TAB PO SCH (05:45)
[2019-01-07 07:02] VITALS: BP 155/97
[2019-01-07] MEDS: PROMETHAZINE 25 MG/ML 1 ML AMP IVP PRN ×2 (09:43→19:52)
[2019-01-07] MEDS: SODIUM CHLORIDE 1 GR TAB PO SCH ×2 (09:43→20:48)
[2019-01-07] MEDS: ENOXAPARIN 40 MG/0.4ML SYR SC SCH (09:44)
[2019-01-07] MEDS: METOPROLOL TART 50 MG TAB PO SCH ×2 (09:44→20:48)
[2019-01-07] MEDS ORDERED: POTASSIUM CHL 20 MEQ TABCR PO ONE ×2 (09:55→14:06)
--- NOTE | 2019-01-07 10:02 | General Surgery Progress Note ---
Subjective Progress Notes Subjective Feeling much better today. Nausea resolved. Abdominal pain improved and feels less bloated. Patient Complains of: Cardiovascular: No: Chest Pain Respiratory: No: Shortness of Breath Gastrointestinal: No Nausea, No Vomiting Physical Exam Vital Signs Date Time Temp Pulse Resp B/P (MAP) Pulse Ox O2 Delivery O2 Flow Rate FiO2 01/07/19 08:01 96 Nasal Cannula 1.0 01/07/19 07:02 98.6 121 14 155/97 (116) Intake and Output 01/07/19 07:00 Intake Total 1744 ml Output Total 3550 ml Balance -1806 ml Intake Oral 200 ml IV Total 1544 ml Stool Total 2850 ml Drainage Total 700 ml # Voids 7 General Appearance: Alert, Awake, No Acute Distress Neuro: No Gross deficits Cardiovascular: Other (tachycardic, regular rhythm) Respiratory: No Respiratory Distress GI: Other (obese, somewhat distended, ileostomy congested and mucosa dark but appears viable; ileostomy output thin green; incisions clean/dry) Extremities: Warm, Perfused Integumentary: Skin Intact without Lesion / Mass Psych: Alert & Oriented X3, Appropriate Mood & Affect Result Diagram: 01/07/19 0516 01/07/19 05 Monitor Interpretation: Normal Sinus Rhythm Assessment and Plan Problems: (1) Recto-vaginal fistula Status: Acute Assessment & Plan: 01/05/19: doing fine. sore. cont clears. on lovenox and abx. d/c mclean. ambulate. serial exams/labs. 01/06/19: POD#2 from cholecystectomy, sigmoid colectomy and diverting loop ileostomy. Feels unwell this AM, distended and nauseated. Minimal thin output from ileostomy, appears quite congested, will continue to monitor. Will place NPO and resume IVF. Appears to have an ileus. WBC decreased to 16 (20), afebrile, continue Zosyn given intra-abdominal contamination from surgery. Hyponatremia: recently hospitalized a couple months ago with severe hy ponatremia. Na 131 this AM. Will start salt tabs, check PM BMP. Ambulate. 01/07/19: POD#3. Feels better today. WBC down to 12.8 (16.3). Nausea resolved, ileostomy output 1900mL. Will resume full liquid/soft diet. Monitor ileostomy, remains congested, mucosa appears viable but dark red/purple. Continue Zosyn. Electrolytes: hyponatremia improved (134), continue salt tabs, dc fluids when tolerating more PO. Hypokalemia: replete potassium with 80meq oral KCl. (2) Colovaginal fistula Time Spent: < 30 min Exam Sepsis Risk: Sepsis Risk IGNACIO BAI MD Jan 07, 2019 10:02
--- NOTE | 2019-01-07 10:52 | Hospitalist Progress Note ---
Subjective Progress Notes Subjective 73F admitted post operatively. ISIDORO overnight, remains tachycardic but asymptomatic. Asking about going home. Patient Complains of: Cardiovascular: No: Chest Pain Gastrointestinal: No Nausea, No Vomiting Physical Exam Vital Signs Date Time Temp Pulse Resp B/P (MAP) Pulse Ox O2 Delivery O2 Flow Rate FiO2 01/07/19 08:01 96 Nasal Cannula 1.0 01/07/19 08:01 119 01/07/19 07:02 98.6 14 155/97 (116) Intake and Output 01/07/19 07:00 Intake Total 1744 ml Output Total 3550 ml Balance -1806 ml Intake Oral 200 ml IV Total 1544 ml Stool Total 2850 ml Drainage Total 700 ml # Voids 7 General Appearance: Alert, Awake, No Acute Distress, Afebrile Neuro: No Gross deficits Cardiovascular: Normal Rhythm & Peripheral Pulses Respiratory: No Respiratory Distress GI: Soft and Non-Tender Extremities: Soft and Non Tender, Warm, Pulses, Perfused Result Diagram: 01/07/1951501/07/19 05 Monitor Interpretation: Normal Sinus Rhythm Assessment and Plan Problems: (1) Tachycardia Assessment & Plan: She has had intermittent tachycardia and hypertension. She had not previously been on treatment, but was started on metoprolol. We will monitor and adjust her dose as needed. (2) Hypothyroidism Status: Chronic Assessment & Plan: She is on chronic treatment with Synthroid. Exam Sepsis Risk: Sepsis Risk SWATHI RESENDIZ DO Jan 07, 2019 10:52
[2019-01-07 14:49] VITALS: BP 155/102
[2019-01-07 19:12] VITALS: BP 155/90
[2019-01-07] MEDS: APAP/HYDROCODONE 325/7.5 TAB PO PRN (20:48)
[2019-01-08] VITALS (8 sets, daily range): BP systolic 135–167; BP diastolic 79–105
[2019-01-08] MEDS: PIPERACILLIN/TAZO*3.375GM VIAL 3.375 GM in NS(*) 0.9% 100 ML MINI-BAG 100 ML IVPB SCH ×5 (00:21→23:36)
[2019-01-08] MEDS: APAP/HYDROCODONE 325/7.5 TAB PO PRN ×4 (00:39→20:09)
[2019-01-08] MEDS: NORMOSOL R SOLN(*) 1000 ML BAG 1,000 ML IV PRN (03:52)
[2019-01-08] MEDS: LEVOTHYROXINE SOD 0.05 MG TAB PO SCH (05:06)
[2019-01-08 06:14] LABS: PLATELET COUNT, AUTOMATED 220 K/uL (150-450)
--- NOTE | 2019-01-08 08:25 | General Surgery Progress Note ---
Subjective Progress Notes Subjective No complaints this morning. Not much pain. Feeling a lot better since ileostomy output increased. Tolerating diet so far. Physical Exam Vital Signs Date Time Temp Pulse Resp B/P (MAP) Pulse Ox O2 Delivery O2 Flow Rate FiO2 01/08/19 07:03 97.8 72 16 135/79 (97) 87 Nasal Cannula 1.0 Intake and Output 01/08/19 07:00 Intake Total 2345 ml Output Total 3550 ml Balance -1205 ml Intake Oral 1040 ml IV Total 1305 ml Stool Total 3150 ml Drainage Total 400 ml # Voids 12 # Bowel Movements 2 General Appearance: Alert, Awake, No Acute Distress, Afebrile GI: Other (Soft, appropriate postop TTP, incisions all look good without erythema or drainage. Stoma is dark pink with good stool output. LV drain with serous drainage.) Extremities: Warm, Perfused Result Diagram: 01/08/19 0558 01/08/19 0558 Monitor Interpretation: Normal Sinus Rhythm Assessment and Plan Problems: (1) Recto-vaginal fistula Status: Resolved Assessment & Plan: 01/05/19: doing fine. sore. cont clears. on lovenox and abx. d/c mclean. ambulate. serial exams/labs. 01/06/19: POD#2 from cholecystectomy, sigmoid colectomy and diverting loop ileostomy. Feels unwell this AM, distended and nauseated. Minimal thin output from ileostomy, appears quite congested, will continue to monitor. Will place NPO and resume IVF. Appears to have an ileus. WBC decreased to 16 (20), afebrile, continue Zosyn given intra-abdominal contamination from surgery. Hyponatremia: recently hospitalized a couple months ago with severe hyponatremia. Na 131 this AM. Will start salt tabs, check PM BMP. Ambulate. 01/07/19: POD#3. Feels better today. WBC down to 12.8 (16.3). Nausea resolved, ileostomy output 1900mL. Will resume full liquid/soft diet. Monitor ileostomy, remains congested, mucosa appears viable but dark red/purple. Continue Zosyn. Electrolytes: hyponatremia improved (134), continue salt tabs, dc fluids when tolerating more PO. Hypokalemia: replete potassium with 80meq oral KCl. 01/08/19: POD#4. Doing much better today. HR down and WBC down to normal. Will try regular diet today. Continue stoma education. Continue zosyn today, stop if afebrile and WBC normal tomorrow. Continue ambulation, IS, aggressive pulmonary hygiene, lovenox, PPI, etc. (2) Colovaginal fistula Status: Resolved Condition Stable. Time Spent: < 30 min Exam Sepsis Risk: No Definite Risk ALISSON VAN MD Jan 08, 2019 08:25
[2019-01-08] MEDS: ENOXAPARIN 40 MG/0.4ML SYR SC SCH (09:11)
[2019-01-08] MEDS: METOPROLOL TART 50 MG TAB PO SCH ×2 (09:11→20:09)
[2019-01-08] MEDS: SODIUM CHLORIDE 1 GR TAB PO SCH ×2 (09:11→20:08)
[2019-01-08] MEDS: FAMOTIDINE 20 MG TAB PO SCH ×2 (09:12→20:09)
--- NOTE | 2019-01-08 10:04 | Hospitalist Progress Note ---
Subjective Progress Notes Subjective She was admitted post-operatively. She denies any complaints this morning. She had no acute events overnight. Tachycardia improved. Patient Complains of: Cardiovascular: No: Chest Pain Respiratory: No: Shortness of Breath Physical Exam Vital Signs Date Time Temp Pulse Resp B/P (MAP) Pulse Ox O2 Delivery O2 Flow Rate FiO2 01/08/19 08:26 95 Nasal Cannula 1.0 01/08/19 07:03 97.8 72 16 135/79 (97) Intake and Output 01/08/19 01:00 Intake Total 1764 ml Output Total 4270 ml Balance -2506 ml Intake Oral 440 ml IV Total 1324 ml Stool Total 3850 ml Drainage Total 420 ml # Voids 10 # Bowel Movements 2 General Appearance: Alert, Awake, No Acute Distress, Afebrile Neuro: No Gross deficits Cardiovascular: Regular Rate and Rhythm Respiratory: No Respiratory Distress, Clear to Auscultation Psych: Alert & Oriented X3, Appropriate Mood & Affect Result Diagram: 01/08/19 0558 01/08/19 0558 Monitor Interpretation: Normal Sinus Rhythm Assessment and Plan Problems: (1) Tachycardia Assessment & Plan: She has had intermittent tachycardia and hypertension. She had not previously been on treatment, but was started on metoprolol. We will monitor and adjust her dose as needed. (2) Hypothyroidism Status: Chronic Assessment & Plan: She is on chronic treatment with Synthroid. Exam Sepsis Risk: No Definite Risk VARGAS RIOS FUR MACHINE OPERATOR Jan 08, 2019 10:04
[2019-01-09] MEDS: APAP/HYDROCODONE 325/7.5 TAB PO PRN ×4 (00:43→17:07)
[2019-01-09 03:32] VITALS: BP 160/93
[2019-01-09] MEDS: PIPERACILLIN/TAZO*3.375GM VIAL 3.375 GM in NS(*) 0.9% 100 ML MINI-BAG 100 ML IVPB SCH ×2 (05:50→11:44)
[2019-01-09] MEDS: LEVOTHYROXINE SOD 0.05 MG TAB PO SCH (05:50)
[2019-01-09 06:41] LABS: PLATELET COUNT, AUTOMATED 235 K/uL (150-450)
[2019-01-09 07:15] VITALS: BP 140/100
[2019-01-09] MEDS: FAMOTIDINE 20 MG TAB PO SCH (08:38)
[2019-01-09] MEDS: SODIUM CHLORIDE 1 GR TAB PO SCH (08:38)
[2019-01-09] MEDS: METOPROLOL TART 50 MG TAB PO SCH (08:39)
[2019-01-09] MEDS: ENOXAPARIN 40 MG/0.4ML SYR SC SCH (08:40)
--- NOTE | 2019-01-09 09:05 | Hospitalist Progress Note ---
Subjective Progress Notes Subjective She had no acute events overnight. She reports she would like to go home today. Patient Complains of: Cardiovascular: No: Chest Pain Respiratory: No: Shortness of Breath Physical Exam Vital Signs Date Time Temp Pulse Resp B/P (MAP) Pulse Ox O2 Delivery O2 Flow Rate FiO2 01/09/19 08:51 84 01/09/19 07:51 Nasal Cannula 0.5 01/09/19 07:15 98.6 116 12 140/100 (113) Intake and Output 01/09/19 01:00 Intake Total 4000 ml Output Total 1815 ml Balance 2185 ml Intake Oral 2600 ml IV Total 1400 ml Stool Total 1280 ml Drainage Total 535 ml # Voids 17 General Appearance: Alert, Awake, No Acute Distress, Afebrile Neuro: No Gross deficits Cardiovascular: Regular Rate and Rhythm Respiratory: No Respiratory Distress, Clear to Auscultation GI: Soft and Non-Tender Psych: Alert & Oriented X3, Appropriate Mood & Affect Result Diagram: 01/09/19 0630 01/09/19 0603 Monitor Interpretation: Normal Sinus Rhythm Assessment and Plan Problems: (1) Tachycardia Assessment & Plan: She has had intermittent tachycardia and hypertension. She had not previously been on treatment, but was started on metoprolol. We will monitor and adjust her dose as needed. (2) Hypothyroidism Status: Chronic Assessment & Plan: She is on chronic treatment with Synthroid. Exam Sepsis Risk: No Definite Risk VARGAS RIOS LOOM BLOWER Jan 09, 2019 09:05
--- NOTE | 2019-01-09 10:19 | General Surgery Progress Note ---
Subjective Progress Notes Subjective doing well. some lower abd pain. jesus po. ambulating. Physical Exam Vital Signs Date Time Temp Pulse Resp B/P (MAP) Pulse Ox O2 Delivery O2 Flow Rate FiO2 01/09/19 08:51 84 01/09/19 07:51 Nasal Cannula 0.5 01/09/19 07:15 98.6 116 12 140/100 (113) Intake and Output 01/09/19 07:00 Intake Total 2700 ml Output Total 1490 ml Balance 1210 ml Intake Oral 2500 ml IV Total 200 ml Stool Total 980 ml Drainage Total 510 ml # Voids 16 General Appearance: No Acute Distress GI: Other (abd soft, in c/d/i, stoma viable, stool in ostomy bag, kodak - serosang) Result Diagram: 01/09/19 0630 01/09/19 0603 Monitor Interpretation: Normal Sinus Rhythm Assessment and Plan Problems: (1) Recto-vaginal fistula Status: Resolved Assessment & Plan: 01/05/19: doing fine. sore. cont clears. on lovenox and abx. d/c mclean. ambulate. serial exams/labs. 01/06/19: POD#2 from cholecystectomy, sigmoid colectomy and diverting loop ileostomy. Feels unwell this AM, distended and nauseated. Minimal thin output from ileostomy, appears quite congested, will continue to monitor. Will place NPO and resume IVF. Appears to have an ileus. WBC decreased to 16 (20), afebrile, continue Zosyn given intra-abdominal contamination from surgery. Hyponatremia: recently hospitalized a couple months ago with severe hyponatremia. Na 131 this AM. Will start salt tabs, check PM BMP. Ambulate. 01/07/19: POD#3. Feels better today. WBC down to 12.8 (16.3). Nausea resolved, ileostomy output 1900mL. Will resume full liquid/soft diet. Monitor ileostomy, remains congested, mucosa appears viable but dark red/purple. Continue Zosyn. Electrolytes: hyponatremia improved (134), continue salt tabs, dc fluids when tolerating more PO. Hypokalemia: replete potassium with 80meq oral KCl. 01/08/19: POD#4. Doing much better today. HR down and WBC down to normal. Will try regular diet today. Continue stoma education. Continue zosyn today, stop if afebrile and WBC normal tomorrow. Continue ambulation, IS, aggressive pulmonary hygiene, lovenox, PPI, etc. 01/09/19: doing fine. some low abd pain. d/c home with if tolerates lunch. (2) Colovaginal fistula Status: Resolved Exam Sepsis Risk: No Definite Risk MARKOS SINGH Jan 09, 2019 10:19
[2019-01-09 11:23] VITALS: BP 126/95
[2019-01-09] MEDS ORDERED: HYDR-654 PO (13:06)
--- NOTE | 2019-01-09 13:31 | Hospitalist Depart ---
Discharge Summary Reason for Hosp/Final Diag: (1) Recto-vaginal fistula Status: Resolved Hospital Course & Plan: 01/05/19: doing fine. sore. cont clears. on lovenox and abx. d/c mclean. ambulate. serial exams/labs. 01/06/19: POD#2 from cholecystectomy, sigmoid colectomy and diverting loop ileostomy. Feels unwell this AM, distended and nauseated. Minimal thin output from ileostomy, appears quite congested, will continue to monitor. Will place NPO and resume IVF. Appears to have an ileus. WBC decreased to 16 (20), afebrile, continue Zosyn given intra-abdominal contamination from surgery. Hyponatremia: recently hospitalized a couple months ago with severe hyponatremia. Na 131 this AM. Will start salt tabs, check PM BMP. Ambulate. 01/07/19: POD#3. Feels better today. WBC down to 12.8 (16.3). Nausea resolved, ile ostomy output 1900mL. Will resume full liquid/soft diet. Monitor ileostomy, remains congested, mucosa appears viable but dark red/purple. Continue Zosyn. Electrolytes: hyponatremia improved (134), continue salt tabs, dc fluids when tolerating more PO. Hypokalemia: replete potassium with 80meq oral KCl. 01/08/19: POD#4. Doing much better today. HR down and WBC down to normal. Will try regular diet today. Continue stoma education. Continue zosyn today, stop if afebrile and WBC normal tomorrow. Continue ambulation, IS, aggressive pulmonary hygiene, lovenox, PPI, etc. 01/09/19: doing fine. some low abd pain. d/c home if tolerates lunch. (2) Colovaginal fistula Status: Resolved Departure Weight (Pounds): 203 Weight (Ounces): 2.1 Result Diagram: 01/09/1962901/09/19 06 Condition: Improved Discharge: Home Discharge Instructions Home Meds Active Scripts Hydrocodone Bit/Acetaminophen (NORCO 7.5-325 TABLET) 1 Each Tablet, 1 EACH PO Q4H PRN for PAIN, #30 TAB Prov:MARKOS SINGH 01/09/19 Oxycodone Hcl/Acetaminophen (PERCOCET 5-325 MG TABLET) 1 Each Tablet, 1 EACH PO QID PRN for PAIN for 7 Days, #30 TAB 0 Refills Prov:LAURA JOHNSON MD 12/25/18 Amoxicillin/Potassium Clav (AUGMENTIN 500-125 TABLET) 1 Each Tablet, 1 TAB PO Q8H for fistula for 10 Days, #30 TAB 0 Refills Prov:LAURA JOHNSON MD 12/25/18 Ondansetron 4 Mg Odt (ONDANSETRON 4 MG ODT) 4 Mg Tab.rapdis, 4 MG PO Q6H PRN for NAUSEA/VOMITING, #10 TAB Prov:KEVIN ZAMORA DO 12/21/18 Reported Medications Levothyroxine Sodium (LEVOTHYROXINE SODIUM) 50 Mcg Tablet, 50 MCG PO QDAY, TAB 12/02/18 Diet: Regular Activity: No Heavy Lifting Special Instructions: ok to shower. ostomy and kodak drain care as instructed. no lifting more than 15 pounds for 6 weeks. f/u dr. isadora singh 10 days ([phone]). Venous Thromboembolism Antithrombotics Is Pt On Any Antithrombotics?: Yes MARKOS SINGH Jan 09, 2019 13:31
[2019-01-09] MEDS ORDERED: GI COCKTAIL 60 ML BTL PO ONE (13:45)
--- NOTE | 2019-01-09 13:57 | EKG ---
FACILITY: [facility] PATIENT NAME: ROSALIO ROSAS : [id number] MR: [id number] V: [id number] EXAM DATE: ORDERING PHYSICIAN: VARGAS RIOS TECHNOLOGIST: YAMILKA Maurer Reason : CP Blood Pressure : / mmHG Vent. Rate : 120 BPM Atrial Rate : 120 BPM P-R Int : 180 ms QRS Dur : 078 ms QT Int : 316 ms P-R-T Axes : -05 066 055 degrees QTc Int : 446 ms Sinus tachycardia Otherwise normal ECG When compared with ECG of 06-JAN-2019 15:17, No significant change was found Confirmed by ALISSON YO ([id number]) on 01/09/2019 2:30:24 PM Referred By: JENNI Confirmed By:ALISSON YO
[2019-01-09] MEDS ORDERED: METO-257 PO (14:56)
--- NOTE | 2019-01-09 16:00 | NUR ---
Worked with pt and spouse earlier this admission with [facility] colostomy and supplies. Spouse feels confident with management at home. Called [facility] after [facility] for supplies obtained, they do not have the [employer] product and are out of network for her insurance. Provided them with list of DME companies in [place]. Yonatan states he will call insur tomorrow to get an auth for [facility] in [place] as it is more convenient. Enc him to do so tomorrow so they can order supplies
[2019-01-09 16:26] VITALS: BP 148/68
[2019-01-10] MEDS ORDERED: AMOX-559 PO (09:21)
== END 2019-01-09 17:35 | disposition home or self-care (01) | DRG 330 ==
LOC: OR 01:13 → MED 22:30
PROVIDERS: ADMIT Surgery; ATTEND Surgery
PROC: 0DBN4ZZ Excision of Sigmoid Colon, Percutaneous Endoscopic Approach (ICD-10-PCS; principal; 2019-01-05)
PROC: 0D1B4Z4 Bypass Ileum to Cutaneous, Percutaneous Endoscopic Approach (ICD-10-PCS; 2019-01-05)
PROC: 0FT44ZZ Resection of Gallbladder, Percutaneous Endoscopic Approach (ICD-10-PCS; 2019-01-05)
PROC: 0DJD8ZZ Inspection of Lower Intestinal Tract, Via Natural or Artificial Opening Endoscopic (ICD-10-PCS; 2019-01-05)
DX: N82.3 Fistula of vagina to large intestine (principal); K80.10 Calculus of gallbladder with chronic cholecystitis without obstruction; E87.6 Hypokalemia; I10 Essential (primary) hypertension; Z87.891 Personal history of nicotine dependence; R00.0 Tachycardia, unspecified; E03.9 Hypothyroidism, unspecified; F32.9 Major depressive disorder, single episode, unspecified; E66.9 Obesity, unspecified; Z68.38 Body mass index [BMI] 38.0-38.9, adult; Z90.710 Acquired absence of both cervix and uterus; Z88.7 Allergy status to serum and vaccine; Z88.8 Allergy status to other drugs, medicaments and biological substances
CPT/HCPCS: 36415; 74018; 82310; 82374; 82435; 82565; 82947; 83605; 84132; 84295; 84443; 84484; 84520; 85025; 86140; 88304; 88305; 88307; 93005; A4406; J1100; J1170; J1650; J1956; J2001; J2250; J2405; J2543; J2550; J2704; J3010; J3490; J7030; Q9967

== ENCOUNTER 2019-01-10 07:10 | Emergency (ER) | payer MEDICARE, BC ==
[2018-12-25 13:58] VITALS: Wt 95.3 kg
[~2019-01-10 07:10] MED LIST changes: +HYDR-654 PO; +METO-257 PO
[2019-01-10 07:44] LABS: PLATELET COUNT, AUTOMATED 260 K/uL (150-450)
--- NOTE | 2019-01-10 07:44 | ER Report ---
History and Physical Time Seen By MD: 07:10 HPI/ROS CHIEF COMPLAINT: Abdominal pain HISTORY OF PRESENT ILLNESS: Valeria female returns emergency department was discharged last evening for lower abdominal discomfort seen by Dr. Alvarado as an inpatient for several days patient complains of having pain and around her ostomy site Dr. Alvarado at bedside within 10 minutes of arrival before any orders were entered evaluated the patient due the fact she has a 24-hour bounce back and determined he wants a CT scan done and some baseline blood work. Patient's complaints are consistent with a she's had on the floor lower suprapubic tenderness and around an area of incision site Dr. Alvarado is aware of the circumstances and has advised a CT scan to be ordered patients denying any abdominal pressure diet denying any nausea vomiting or diarrhea and is asking for water. REVIEW OF SYSTEMS: Respiratory: No cough, no dyspnea. Cardiovascular: No chest pain, no palpitations. Gastrointestinal: No vomiting abdominal pain Musculoskeletal: No back pain. Remainder of the 14 system rev: Yes Allergies: Coded Allergies: smallpox vaccine,chick-embryo,live (Verified Adverse Reaction, Intermediate, 01/10/19) HIGH FEVER, bupropion (Unverified Adverse Reaction, Mild, AMNESIA, 01/10/19) CAUSED LOW SODIUM Home Meds Active Scripts Metoprolol Tartrate (METOPROLOL TARTRATE) 100 Mg Tablet, 1 TAB PO BID, #60 TAB Prov:VARGAS RIOS SHOE REPAIRER 01/09/19 Hydrocodone Bit/Acetaminophen (NORCO 7.5-325 TABLET) 1 Each Tablet, 1 EACH PO Q4H PRN for PAIN, #30 TAB Prov:MARKOS ALVARADO 01/09/19 Reported Medications Levothyroxine Sodium (LEVOTHYROXINE SODIUM) 50 Mcg Tablet, 50 MCG PO QDAY, TAB 12/02/18 Discontinued Scripts Oxycodone Hcl/Acetaminophen (PERCOCET 5-325 MG TABLET) 1 Each Tablet, 1 EACH PO QID PRN for PAIN for 7 Days, #30 TAB 0 Refills Prov:LAURA JOHNSON MD 12/25/18 Amoxicillin/Potassium Clav (AUGMENTIN 500-125 TABLET) 1 Each Tablet, 1 TAB PO Q8H for fistula for 10 Days, #30 TAB 0 Refills Prov:LAURA JOHNSON MD 12/25/18 Ondansetron 4 Mg Odt (ONDANSETRON 4 MG ODT) 4 Mg Tab.rapdis, 4 MG PO Q6H PRN for NAUSEA/VOMITING, #10 TAB Prov:KEVIN ZAMORA DO 12/21/18 Reviewed Nurses Notes: Yes Old Medical Records Reviewed: Yes Hx Smoking: Yes Smoking Status: Former Smoker Exposure to Second Hand Smoke?: No Hx Substance Use Disorder: No Hx Alcohol Use: No Constitutional Vital Sign - Last 24 Hours 01/10/19 01/10/19 01/10/19 01/10/19 07:19 07:26 07:30 08:00 Temp 98.1 Pulse 80 67 67 Resp 20 B/P (MAP) 163/97 171/95 (120) 161/98 (119) Pulse Ox 90 94 95 O2 Delivery Room Air O2 Flow Rate 1.0 01/10/19 08:30 B/P (MAP) 177/88 (117) Physical Exam General Appearance: The patient is alert, has no immediate need for airway protection and no current signs of toxicity. [ ] Eyes: Pupils equal and round no injection. Respiratory: Chest is non tender, lungs are clear to auscultation. Cardiac: regular rate and rhythm [ ] Gastrointestinal: Tenderness around the ostomy site Musculoskeletal: Neck: Neck is supple and non tender. Extremities have full range of motion and are non tender. Skin: No rashes or lesions. [ ] DIFFERENTIAL DIAGNOSIS: After history and physical exam differential diagnosis was considered for obstruction abscess infection Medical Decision Making Data Points Result Diagram: 01/10/19 0736 01/10/19 0736 Laboratory Hematology Test 01/10/19 07:36 Red Blood Count 4.15 M/uL (4.17-5.56) Mean Corpuscular Volume 84.3 fL (80.0-96.0) Mean Corpuscular Hemoglobin 28.1 pg (26.0-33.0) Mean Corpuscular Hemoglobin Concent 33.4 g/dL (32.0-36.0) Red Cell Distribution Width 14.0 % (11.5-14.5) Mean Platelet Volume 7.7 fL (7.2-11.1) Neutrophils (%) (Auto) 58.9 % (39.4-72.5) Lymphocytes (%) (Auto) 13.5 % (17.6-49.6) Monocytes (%) (Auto) 25.5 % (4.1-12.4) Eosinophils (%) (Auto) 1.0 % (0.4-6.7) Basophils (%) (Auto) 1.1 % (0.3-1.4) Nucleated RBC Relative Count (auto) 0.0 /100WBC Neutrophils # (Auto) 7.2 K/uL (2.0-7.4) Lymphocytes # (Auto) 1.6 K/uL (1.3-3.6) Monocytes # (Auto) 3.1 K/uL (0.3-1.0) Eosinophils # (Auto) 0.1 K/uL (0.0-0.5) Basophils # (Auto) 0.1 K/uL (0.0-0.1) Nucleated RBC Absolute Count (auto) 0.00 K/uL Peripheral Blood Smear Yes Y/N Sodium Level 133 mmol/L (137-145) Potassium Level 2.8 mmol/L (3.5-5.0) Chloride Level 94 mmol/L (98-107) Carbon Dioxide Level 29 mmol/L (22-31) Blood Urea Nitrogen 6 mg/dl (7-18) Creatinine 0.70 mg/dl (0.52-1.04) Glomerular Filtration Rate Calc > 60.0 Random Glucose 133 mg/dl (75-110) Calcium Level 8.8 mg/dl (8.4-10.2) Total Bilirubin 0.7 mg/dl (0.2-1.3) Aspartate Amino Transf (AST/SGOT) 53 U/L (0-35) Alanine Aminotransferase (ALT/SGPT) 46 U/L (0-56) Alkaline Phosphatase 184 U/L (0-126) Total Protein 6.5 g/dl (6.3-8.2) Albumin 3.6 g/dl (3.5-5.0) Chemistry Test 01/10/19 07:36 White Blood Count 12.3 k/uL (4.5-11.0) Red Blood Count 4.15 M/uL (4.17-5.56) Hemoglobin 11.7 g/dL (12.0-16.0) Hematocrit 35.0 % (34.0-47.0) Mean Corpuscular Volume 84.3 fL (80.0-96.0) Mean Corpuscular Hemoglobin 28.1 pg (26.0-33.0) Mean Corpuscular Hemoglobin Concent 33.4 g/dL (32.0-36.0) Red Cell Distribution Width 14.0 % (11.5-14.5) Platelet Count 260 K/uL (150-450) Mean Platelet Volume 7.7 fL (7.2-11.1) Neutrophils (%) (Auto) 58.9 % (39.4-72.5) Lymphocytes (%) (Auto) 13.5 % (17.6-49.6) Monocytes (%) (Auto) 25.5 % (4.1-12.4) Eosinophils (%) (Auto) 1.0 % (0.4-6.7) Basophils (%) (Auto) 1.1 % (0.3-1.4) Nucleated RBC Relative Count (auto) 0.0 /100WBC Neutrophils # (Auto) 7.2 K/uL (2.0-7.4) Lymphocytes # (Auto) 1.6 K/uL (1.3-3.6) Monocytes # (Auto) 3.1 K/uL (0.3-1.0) Eosinophils # (Auto) 0.1 K/uL (0.0-0.5) Basophils # (Auto) 0.1 K/uL (0.0-0.1) Nucleated RBC Absolute Count (auto) 0.00 K/uL Peripheral Blood Smear Yes Y/N Glomerular Filtration Rate Calc > 60.0 Calcium Level 8.8 mg/dl (8.4-10.2) Total Bilirubin 0.7 mg/dl (0.2-1.3) Aspartate Amino Transf (AST/SGOT) 53 U/L (0-35) Alanine Aminotransferase (ALT/SGPT) 46 U/L (0-56) Alkaline Phosphatase 184 U/L (0-126) Total Protein 6.5 g/dl (6.3-8.2) Albumin 3.6 g/dl (3.5-5.0) ED Course/Re-evaluation ED Course ED course pneumonia female comes back to the emergency department after being discharged yesterday seen and evaluated in the emergency department by her general surgeon CT scans performed that was also read and evaluated by both radiology and CT read was read by general surgery nothing new or acute she does have little bit of stranding wants her to be on 7 days of Augmentin and follow up accordingly Decision to Disposition Date: Jan 10, 2019 Decision to Disposition Time: 09:20 Depart Departure Latest Vital Signs Vital Signs Date Time Temp Pulse Resp B/P (MAP) Pulse Ox O2 Delivery O2 Flow Rate FiO2 01/10/19 08:30 177/88 (117) 01/10/19 08:00 67 95 01/10/19 07:26 1.0 01/10/19 07:19 98.1 20 Room Air Impression: Primary Impression: Abdominal pain Condition: Improved Disposition: HOME OR SELF-CARE Referrals: CARMEN BEE MD (PCP) MARKOS ALVARADO 5 Days New Scripts Amoxicillin/Pot Clav 875-125 Mg Tab (AUGMENTIN 875-125 TABLET) 1 Each Tablet 1 TAB PO Q12H for 7 Days, #14 TAB Prov: AMAN RUGGIERO MD 01/10/19 Patient Instructions: Abdominal Pain (ED) AMAN RUGGIERO MD Jan 10, 2019 07:44
--- NOTE | 2019-01-10 07:48 | General Surgery Consultation ---
History of Present Illness Reason for Consult abd pain, recent surgery Chief Complaint unable to seal ostomy bag History of Present Illness 73 yo f s/p lap sigmoidectomy and diverting ileostomy. she was discharged yesterday. she returns today because unable to get bag to seal. pt has 6/10 lower abd pain and pain at ostomy site. History Home Meds Active Scripts Metoprolol Tartrate (METOPROLOL TARTRATE) 100 Mg Tablet, 1 TAB PO BID, #60 TAB Prov:VARGAS RIOS SLATER APPRENTICE 01/09/19 Hydrocodone Bit/Acetaminophen (NORCO 7.5-325 TABLET) 1 Each Tablet, 1 EACH PO Q4H PRN for PAIN, #30 TAB Prov:MARKOS SINGH 01/09/19 Reported Medications Levothyroxine Sodium (LEVOTHYROXINE SODIUM) 50 Mcg Tablet, 50 MCG PO QDAY, TAB 12/02/18 Discontinued Scripts Oxycodone Hcl/Acetaminophen (PERCOCET 5-325 MG TABLET) 1 Each Tablet, 1 EACH PO QID PRN for PAIN for 7 Days, #30 TAB 0 Refills Prov:LAURA JOHNSON MD 12/25/18 Amoxicillin/Potassium Clav (AUGMENTIN 500-125 TABLET) 1 Each Tablet, 1 TAB PO Q8H for fistula for 10 Days, #30 TAB 0 Refills Prov:LAURA JOHNSON MD 12/25/18 Ondansetron 4 Mg Odt (ONDANSETRON 4 MG ODT) 4 Mg Tab.rapdis, 4 MG PO Q6H PRN for NAUSEA/VOMITING, #10 TAB Prov:KEVIN ZAMORA DO 12/21/18 Allergies: Coded Allergies: smallpox vaccine,chick-embryo,live (Verified Adverse Reaction, Intermediate, 01/10/19) HIGH FEVER, bupropion (Unverified Adverse Reaction, Mild, AMNESIA, 01/10/19) CAUSED LOW SODIUM Family History: FH: Crohn's disease MOTHER FH: diabetes mellitus BROTHER OR SISTER Review of Systems Constitutional: Other (per hpi) Exam Vital Signs Vital Signs Date Time Temp Pulse Resp B/P (MAP) Pulse Ox O2 Delivery O2 Flow Rate FiO2 01/10/19 07:26 1.0 01/10/19 07:19 98.1 80 20 163/97 90 Room Air General Appearance: Alert, Awake, Afebrile, Other (seems to be holding breath slightly - she is unsure if she is doing this due to pain) Cardiovascular: Other (reg rate) GI: Other (abd soft, ttp over inc, stoma pink, kodak - serosang) Assessment and Plan Problems: (1) Colovaginal fistula Status: Resolved Assessment & Plan: 01/10/19: s/p lap sigmoidectomy and ostomy creation. presents mostly because could not get bag to seal. she c/o 01/15 pain. she lives in [place] and it is a 60 min bumpy ride to get here. will get ct abd/pelvis and cbc. if unremarkable will d/c from er with ostomy supplies. also plans to go to medical supply store today. Venous Thromboembolism Antithrombotics Is Pt On Any Antithrombotics?: No MARKOS SINGH Jan 10, 2019 07:48
[2019-01-10] MEDS ORDERED: IOPAMIDOL 76% 100 ML INFUS BTL 100 ML ONE (08:16)
[2019-01-10] MEDS ORDERED: POTASSIUM CHL 20 MEQ TABCR PO ONE (08:20)
[2019-01-10 08:30] VITALS: BP 177/88
--- NOTE | 2019-01-10 08:56 | RADIOLOGY IMAGING REPORT ---
[place] [facility] [place] NAME: Chely Maynard : 1945 MR: [id number] V: [id number] EXAM DATE: ORDERING PHYSICIAN: AMAN RUGGIERO TECHNOLOGIST: Location: [facility] Patient: Chely Maynard : 1945 Visit/Account:[id number] Date of Sevice: 01/10/2019 CT ABDOMEN PELVIS W/ CON HISTORY: Pain x1 month TECHNIQUE: Following administration of IV contrast contiguous axial images acquired through the abdom en/pelvis. Coronal and sagittal reformatting also performed.Dose Lowering Technique One of the following dose optimization techniques was utilized in the performance of this exam: Autom ated exposure control; adjustment of the mA and/or kV according to the patient's size; or use of an i terative reconstruction technique. Specific details can be referenced in the facility's radiology C T exam operational policy. CONTRAST: 75 mL Isovue-370 COMPARISON: December 23, 2018 FINDINGS: Visualized lung bases: Scarring in the right middle lobe and left lower lobe. Faint 2 mm nodule pos terior aspect right lower lobe is better seen on the current examination although appears stable comp ared to the prior study and is best seen on image eight of series 4. Previously noted 3 x 4 mm right lower lobe pulmonary nodule is not apparent on the current examination appears unchanged. Hepatobiliary: Postsurgical changes from a cholecystectomy Spleen: Accessory splenules Adrenals: Mild adrenal thickening Pancreas: Negative. Kidneys ureters or bladder: 8 mm cyst mid right kidney appears unchanged. Perinephric stranding bila terally is again noted slightly increased on the left . There is increased bladder wall thickening seen along the dome of the bladder with increased fat stranding seen just superior to the dome and ex tending to the anterior pelvic wall superiorly. Genitalia: The uterus is surgically absent. A small amount of air is noted within the vagina. Ther e is haziness of the fat planes between the bladder and the vagina appearing similar to the prior bipin dy. GI: There is a surgical anastomosis in the distal sigmoid colon. There are scattered diverticula th roughout the colon. There is an ileostomy in the right lower quadrant there are several mildly dilat ed fluid-filled loops of small bowel in the upper and left-sided abdomen measuring up to 3.6 cm in di ameter. A definite transitional point is not seen Vessels/spaces/nodes: There is a drain inserted via the left lateral mid pelvis crossing midline an teriorly the distal tip in the right lower quadrant Bones/soft tissues: There is skin maxx along the anterior lower pelvic wall. There are infiltrat adelita changes in the subcutaneous fat along the lower anterior pelvic wall. The contents of the adjace nt rectus sheath appears edematous with small air bubbles interposed. This may simply be postoperati ve in nature although a developing phlegmon cannot be entirely excluded . A discrete abscess is not seen. There is mild anasarca. Mild multilevel degenerative changes of the visualized spine Additional findings: None pertinent. IMPRESSION: Since the prior examination there is now surgical anastomosis in the sigmoid colon. Also noted is an ileostomy in the right lower quadrant. There are multiple loops of mildly dilated fluid-filled small bowel in the upper and left-sided abdom en. A definite transitional point is not seen. This may represent a postoperative ileus although pa rtial small bowel obstruction not entirely excluded. There are skin maxx along the anterior lower pelvic wall. Infiltrative changes are identified in the subcutaneous fat in the lower pelvic wall. The contents of the adjacent rectus sheath appear liudmila matous with small air bubbles interposed. This may simple represent a postoperative finding although developing phlegmon cannot be entirely excluded. A discrete abscess is not seen. There is increased bladder wall thickening along the dome of the bladder with increased fa stranding just superior to the dome extending to the edematous changes in the anterior pelvic wall Report Dictated By: Renuka Lunsford MD at 01/10/2019 8:33 AM Report E-Signed By: Renuka Lunsford MD at 01/10/2019 8:49 AM WSN:[email or web address]
[2019-01-10] MEDS ORDERED: AMOX-559 PO (09:21)
== END 2019-01-10 09:30 | disposition home or self-care (01) ==
LOC: ER 07:31
DX: R10.30 Lower abdominal pain, unspecified (principal)
CPT/HCPCS: 74177; 85025; 99284; A9270; Q9967; 82040; 82247; 82310; 82374; 82435; 82565; 82947; 84075; 84132; 84155; 84295; 84450; 84460; 84520

== ENCOUNTER 2019-01-23 06:41 | Observation (INO) | payer MEDICARE ==
[2018-12-25 13:58] VITALS: Wt 83.5 kg
[~2019-01-23 06:41] MED LIST changes: +AMOX-559 PO
--- NOTE | 2019-01-23 06:54 | ER Report ---
History and Physical Time Seen By MD: 06:52 HPI/ROS CHIEF COMPLAINT: Diffuse abdominal pain primarily in the lower abdominal distribution HISTORY OF PRESENT ILLNESS: Patient is a 74-year-old female here with complaints of diffuse, persistent lower abdominal pain and bilateral mid and lower quadrants. Patient reportedly had a vaginal fistula repair 2 weeks ago. Patient has been having good output from the colostomy site but does report having a urinary frequency, persistent pain in spite of taking her prescribed analgesics. Patient denies nausea, vomiting. She is tolerating oral intake without issue. Patient is afebrile, hemodynamically stable at time of evaluation. She is diffusely tender on palpation. REVIEW OF SYSTEMS: Constitutional: No fever, no chills. Eyes: No discharge. ENT: No sore throat. Cardiovascular: No chest pain, no palpitations. Respiratory: No cough, no shortness of breath. Gastrointestinal: + Diffuse abdominal pain, no vomiting. Genitourinary: No hematuria.+ Frequency Musculoskeletal: No back pain. Skin: No rashes. Neurological: No headache. Allergies: Coded Allergies: smallpox vaccine,chick-embryo,live (Verified Adverse Reaction, Intermediate, 01/10/19) HIGH FEVER, bupropion (Unverified Adverse Reaction, Mild, AMNESIA, 01/10/19) CAUSED LOW SODIUM Home Meds Active Scripts Hydrocodone Bit/Acetaminophen (NORCO 7.5-325 TABLET) 1 Each Tablet, 1 EACH PO Q6H PRN for PAIN, #30 TAB Prov:MARKOS ALVARADO 01/19/19 Metoprolol Tartrate (METOPROLOL TARTRATE) 100 Mg Tablet, 1 TAB PO BID, #60 TAB Prov:VARGAS IROS 01/09/19 Reported Medications Levothyroxine Sodium (LEVOTHYROXINE SODIUM) 50 Mcg Tablet, 50 MCG PO QDAY, TAB 12/02/18 Discontinued Scripts Amoxicillin/Pot Clav 875-125 Mg Tab (AUGMENTIN 875-125 TABLET) 1 Each Tablet, 1 TAB PO Q12H for 7 Days, #14 TAB Prov:AMAN RUGGIERO MD 01/10/19 Hydrocodone Bit/Acetaminophen (NORCO 7.5-325 TABLET) 1 Each Tablet, 1 EACH PO Q4H PRN for PAIN, #30 TAB Prov:MARKOS ALVARADO 01/09/19 Hx Smoking: Yes Smoking Status: Former Smoker Exposure to Second Hand Smoke?: No Hx Substance Use Disorder: No Hx Alcohol Use: No Constitutional Vital Sign - Last 24 Hours 01/23/19 01/23/19 01/23/19 01/23/19 06:48 06:50 07:00 07:11 Temp 97.8 Pulse 79 75 Resp 24 B/P (MAP) 127/69 127/69 (88) 120/68 (85) Pulse Ox 92 91 O2 Delivery Room Air 01/23/19 01/23/19 01/23/19 07:23 07:30 08:00 B/P (MAP) 117/85 (96) 102/63 (76) O2 Flow Rate 2.0 Physical Exam General Appearance: The patient is alert, has no immediate need for airway protection and no signs of toxicity. Uncomfortable appearing Eyes: Pupils equal and round no pallor or injection. ENT, Mouth: Mucous membranes are moist. Respiratory: There are no retractions, lungs are clear to auscultation. Cardiovascular: Regular rate and rhythm. Gastrointestinal: + Diffuse lower abdominal pain, no rebound or guarding or peritoneal signs.+ Hyperactive bowel sounds Neurological: No focal neurological deficits Skin: Warm and dry, no rashes. Musculoskeletal: Neck is supple non tender. Extremities are nontender, nonswollen and have full range of motion. DIFFERENTIAL DIAGNOSIS: After history and physical exam differential diagnosis was considered for abdominal pain including but not limited to appendicitis, cholecystitis, gastritis and urinary tract infection. Medical Decision Making Data Points Result Diagram: 01/23/19 0700 01/23/19 0700 Laboratory Hematology Test 01/23/19 07:00 01/23/19 07:59 Red Blood Count 4.54 M/uL (4.17-5.56) Mean Corpuscular Volume 83.9 fL (80.0-96.0) Mean Corpuscular Hemoglobin 28.3 pg (26.0-33.0) Mean Corpuscular Hemoglobin Concent 33.7 g/dL (32.0-36.0) Red Cell Distribution Width 14.0 % (11.5-14.5) Mean Platelet Volume 7.8 fL (7.2-11.1) Neutrophils (%) (Auto) 40.8 % (39.4-72.5) Lymphocytes (%) (Auto) 31.0 % (17.6-49.6) Monocytes (%) (Auto) 26.1 % (4.1-12.4) Eosinophils (%) (Auto) 1.4 % (0.4-6.7) Basophils (%) (Auto) 0.7 % (0.3-1.4) Nucleated RBC Relative Count (auto) 0.0 /100WBC Neutrophils # (Auto) 3.6 K/uL (2.0-7.4) Lymphocytes # (Auto) 2.7 K/uL (1.3-3.6) Monocytes # (Auto) 2.3 K/uL (0.3-1.0) Eosinophils # (Auto) 0.1 K/uL (0.0-0.5) Basophils # (Auto) 0.1 K/uL (0.0-0.1) Nucleated RBC Absolute Count (auto) 0.00 K/uL Peripheral Blood Smear Yes Y/N Sodium Level 133 mmol/L (137-145) Potassium Level 4.1 mmol/L (3.5-5.0) Chloride Level 100 mmol/L (98-107) Carbon Dioxide Level 21 mmol/L (22-31) Blood Urea Nitrogen 17 mg/dl (7-18) Creatinine 0.70 mg/dl (0.52-1.04) Glomerular Filtration Rate Calc > 60.0 Random Glucose 127 mg/dl (75-110) Lactate 1.1 mmol/L (0.7-2.1) Calcium Level 9.4 mg/dl (8.4-10.2) Total Bilirubin 0.8 mg/dl (0.2-1.3) Aspartate Amino Transf (AST/SGOT) 25 U/L (0-35) Alanine Aminotransferase (ALT/SGPT) 33 U/L (0-56) Alkaline Phosphatase 127 U/L (0-126) Total Protein 7.1 g/dl (6.3-8.2) Albumin 3.9 g/dl (3.5-5.0) Lipase 83 U/L (23-300) Prothrombin Time 12.7 seconds (12.0-14.4) Prothromb Time International Ratio 0.95 Activated Partial Thromboplast Time 30 seconds (23-35) Chemistry Test 01/23/19 07:00 01/23/19 07:59 White Blood Count 8.7 k/uL (4.5-11.0) Red Blood Count 4.54 M/uL (4.17-5.56) Hemoglobin 12.8 g/dL (12.0-16.0) Hematocrit 38.1 % (34.0-47.0) Mean Corpuscular Volume 83.9 fL (80.0-96.0) Mean Corpuscular Hemoglobin 28.3 pg (26.0-33.0) Mean Corpuscular Hemoglobin Concent 33.7 g/dL (32.0-36.0) Red Cell Distribution Width 14.0 % (11.5-14.5) Platelet Count 301 K/uL (150-450) Mean Platelet Volume 7.8 fL (7.2-11.1) Neutrophils (%) (Auto) 40.8 % (39.4-72.5) Lymphocytes (%) (Auto) 31.0 % (17.6-49.6) Monocytes (%) (Auto) 26.1 % (4.1-12.4) Eosinophils (%) (Auto) 1.4 % (0.4-6.7) Basophils (%) (Auto) 0.7 % (0.3-1.4) Nucleated RBC Relative Count (auto) 0.0 /100WBC Neutrophils # (Auto) 3.6 K/uL (2.0-7.4) Lymphocytes # (Auto) 2.7 K/uL (1.3-3.6) Monocytes # (Auto) 2.3 K/uL (0.3-1.0) Eosinophils # (Auto) 0.1 K/uL (0.0-0.5) Basophils # (Auto) 0.1 K/uL (0.0-0.1) Nucleated RBC Absolute Count (auto) 0.00 K/uL Peripheral Blood Smear Yes Y/N Glomerular Filtration Rate Calc > 60.0 Lactate 1.1 mmol/L (0.7-2.1) Calcium Level 9.4 mg/dl (8.4-10.2) Total Bilirubin 0.8 mg/dl (0.2-1.3) Aspartate Amino Transf (AST/SGOT) 25 U/L (0-35) Alanine Aminotransferase (ALT/SGPT) 33 U/L (0-56) Alkaline Phosphatase 127 U/L (0-126) Total Protein 7.1 g/dl (6.3-8.2) Albumin 3.9 g/dl (3.5-5.0) Lipase 83 U/L (23-300) Prothrombin Time 12.7 seconds (12.0-14.4) Prothromb Time International Ratio 0.95 Activated Partial Thromboplast Time 30 seconds (23-35) Coagulation Test 01/23/19 07:59 Prothrombin Time 12.7 seconds Prothromb Time International Ratio 0.95 Activated Partial Thromboplast Time 30 seconds EKG/Imaging Imaging PATIENT NAME: Chely Maynard : 1945 MR: [id number] V: [id number] EXAM DATE: ORDERING PHYSICIAN: CHARLIE LEVIN TECHNOLOGIST: Location: [facility] [place] Patient: Chely Maynard : 1945 Visit/Account:[id number] Date of Sevice: 01/23/2019 CT ABDOMEN PELVIS W/ CON HISTORY: Diffuse abdominal pain. TECHNIQUE: CT abdomen and pelvis with intravenous contrast. One of the following dose optimization techniques was utilized in the performanc e of this exam: Automated exposure control; adjustment of the mA and/or kV according to the patient's size; or use of an iterative reconstruction technique. Specific details can be referenced in the facility's radiology CT exam operational policy. CONTRAST: 75 mL Isovue-370 IV COMPARISON: 01/10/2019 FINDINGS: Visualized lung bases: Unremarkable. Hepatobiliary: New thrombus within the central right and left as well as peripheral right portal veins, new from prior exam. Liver unremarkable. Gallbladder surgically absent. Bile ducts nondistended. Spleen: Negative; several small accessory splenules. Adrenals: Negative. Pancreas: Moderate fatty atrophy. Kidneys/: Two small to characterize low attenuating cortical lesion anterior mid right kidney, likely cyst. Uterus and ovaries surgically absent. GI: Stomach unremarkable. Subcentimeter lipoma 2nd segment duodenum. Right mid abdominal loop ileostomy. Small bowel otherwise grossly unremarkable and nonobstructed. Appendix not visualized, presumably surgically absent. Lipomatous hypertrophy of the ileocecal valve, a benign finding. Sequela of segmental sigmoid colonic resection with reanastomosis. Mild right and moderate left colonic diverticulosis most pronounced at sigmoid. Vessels/spaces/nodes: As above and new from prior exam, right greater than left portal vein thrombus. Also new from prior exam is thrombosis within the caudal aspects inferior mesenteric vein (example series 2/image 75). Mild atherosclerosis. No bulky adenopathy. No free fluid. No free gas. Interval removal of surgical drain. Very small fat-containing umbilical hernia. Caudal to the umbilicus within the midline ventral wall is a partially organized and rim-enhancing 1.4 cm diameter by 3.0 cm length fluid collection ( and ). In the interval since prior exam, development of a partially organized fat and fluid focus within the deep subcutaneous tissues of the right lower quadrant ventral wall measuring 2.1 x 3.8 x 1.7 cm ( and ), most likely fat necrosis. Bones/soft tissues: Mild degenerative changes visualized spine. IMPRESSION: 1. Interval development of right greater than left intrahepatic portal as well as inferior mesenteric vein thrombus. 2. Partially but as of yet incompletely organized fluid collection within the infraumbilical midline ventral wall, approximately 1.4 cm in width and 3.0 cm in length, nonspecific but with considerations including hematoma, seroma or phlegmon/developing abscess. 3. Small focus of deep subcutaneous fat necrosis right lower quadrant ventral wall. 4. No other significant interval change since prior exam. Results were called to Dr. CHARLIE LEVIN at 01/23/2019 8:43 AM. Report Dictated By: Emilio Vicente MD at 01/23/2019 8:04 AM Report E-Signed By: Emilio Vicente MD at 01/23/2019 8:43 AM WSN:[email or web address] ED Course/Re-evaluation ED Course Patient is a 74-year-old female here with complaints of diffuse lower abdominal pain which has been persistent for some time, not improved with her oral analgesics. Patient did have a vaginal fistula repair 2 weeks ago with a colostomy in place with good outputs. Denies nausea or vomiting. Patient does report having urinary frequency. Patient is afebrile. CT imaging reported what seems to be a small seroma on the ventral wall, partial thrombosis of the mesenteric and intrahepatic portal vein prompting Lovenox administration and admission. Patient was evaluated by Dr. Alvarado who had operated on the patient previously and accepted the patient to his service. Patient was stable at time of admission. Decision to Disposition Date: Jan 23, 2019 Decision to Disposition Time: 11:34 Depart Departure Latest Vital Signs Vital Signs Date Time Temp Pulse Resp B/P (MAP) Pulse Ox O2 Delivery O2 Flow Rate FiO2 01/23/19 08:00 102/63 (76) 01/23/19 07:23 2.0 01/23/19 07:11 75 91 01/23/19 06:48 97.8 24 Room Air Impression: Primary Impression: Abdominal pain Additional Impression: Thrombosis mesenteric vessel Condition: Condition Unchanged Disposition: Admitted from ER Referrals: CARMEN BEE MD (PCP) Problem Qualifiers CHARLIE LEVIN DO Jan 23, 2019 06:53
[2019-01-23] MEDS ORDERED: NS(*) 0.9% 1000 ML BAG 1,000 ML IV ONE (07:02)
[2019-01-23] MEDS ORDERED: fentaNYL CITR 100 MCG/2 ML AMP IVP ONE (07:05)
[2019-01-23] MEDS ORDERED: IOPAMIDOL 76% 100 ML INFUS BTL 100 ML ONE (07:16)
[2019-01-23 07:34] LABS: PLATELET COUNT, AUTOMATED 301 K/uL (150-450)
[2019-01-23 08:31] LABS: INR 0.95
--- NOTE | 2019-01-23 08:49 | RADIOLOGY IMAGING REPORT ---
[place] [facility] [place] Chely Maynard : 1945 MR: [id number] V: [id number] EXAM DATE: ORDERING PHYSICIAN: CHARLIE LEVIN TECHNOLOGIST: Location: [facility] Patient: Chely Maynard : 1945 Visit/Account:[id number] Date of Sevice: 01/23/2019 CT ABDOMEN PELVIS W/ CON HISTORY: Diffuse abdominal pain. TECHNIQUE: CT abdomen and pelvis with intravenous contrast. One of the following dose optimization techniques was utilized in the performance of this exam: Autom ated exposure control; adjustment of the mA and/or kV according to the patient's size; or use of an i terative reconstruction technique. Specific details can be referenced in the facility's radiology C T exam operational policy. CONTRAST: 75 mL Isovue-370 IV COMPARISON: 01/10/2019 FINDINGS: Visualized lung bases: Unremarkable. Hepatobiliary: New thrombus within the central right and left as well as peripheral right portal vei ns, new from prior exam. Liver unremarkable. Gallbladder surgically absent. Bile ducts nondistende d. Spleen: Negative; several small accessory splenules. Adrenals: Negative. Pancreas: Moderate fatty atrophy. Kidneys/: Two small to characterize low attenuating cortical lesion anterior mid right kidney, lik ridge cyst. Uterus and ovaries surgically absent. GI: Stomach unremarkable. Subcentimeter lipoma 2nd segment duodenum. Right mid abdominal loop ileo stomy. Small bowel otherwise grossly unremarkable and nonobstructed. Appendix not visualized, presu mably surgically absent. Lipomatous hypertrophy of the ileocecal valve, a benign finding. Sequela o f segmental sigmoid colonic resection with reanastomosis. Mild right and moderate left colonic diver ticulosis most pronounced at sigmoid. Vessels/spaces/nodes: As above and new from prior exam, right greater than left portal vein thrombus . Also new from prior exam is thrombosis within the caudal aspects inferior mesenteric vein (example series 2/image 75). Mild atherosclerosis. No bulky adenopathy. No free fluid. No free gas. Inte rval removal of surgical drain. Very small fat-containing umbilical hernia. Caudal to the umbilicus within the midline ventral wall is a partially organized and rim-enhancing 1.4 cm diameter by 3.0 cm length fluid collection ( and ). In the interval since prior exam, development of a partia lly organized fat and fluid focus within the deep subcutaneous tissues of the right lower quadrant ve ntral wall measuring 2.1 x 3.8 x 1.7 cm ( and ), most likely fat necrosis. Bones/soft tissues: Mild degenerative changes visualized spine. IMPRESSION: 1. Interval development of right greater than left intrahepatic portal as well as inferior mesenteri c vein thrombus. 2. Partially but as of yet incompletely organized fluid collection within the infraumbilical midline ventral wall, approximately 1.4 cm in width and 3.0 cm in length, nonspecific but with consideration s including hematoma, seroma or phlegmon/developing abscess. 3. Small focus of deep subcutaneous fat necrosis right lower quadrant ventral wall. 4. No other significant interval change since prior exam. Results were called to Dr. CHARLIE LEVIN at 01/23/2019 8:43 AM. Report Dictated By: Emilio Vicente MD at 01/23/2019 8:04 AM Report E-Signed By: Emilio Vicente MD at 01/23/2019 8:43 AM WSN:[email or web address]
[2019-01-23] MEDS ORDERED: ENOXAPARIN 100 MG/ML SYR SC ONE (11:00)
[2019-01-23 12:00] VITALS: BP 130/73
[2019-01-23] MEDS ORDERED: ONDANSETRON 4 MG ODT TABDP SL PRN (14:00)
[2019-01-23] MEDS: APAP/HYDROCODONE 325/7.5 TAB PO PRN ×2 (14:56→19:17)
--- NOTE | 2019-01-23 15:05 | Gen Surgery History & Physical ---
History of Present Illness Chief Complaint abd pain History of Present Illness 74 yo f s/p laparoscopic sigmoidectomy and diverting ostomy creation. she presents to the er with low abd pain. she said the pain had resolved in the er, but her said the pain had been intense. eating seems to bring on the pain. pt currently hungry. History Home Meds Active Scripts Hydrocodone Bit/Acetaminophen (NORCO 7.5-325 TABLET) 1 Each Tablet, 1 EACH PO Q6H PRN for PAIN, #30 TAB Prov:MARKOS SINGH 01/19/19 Metoprolol Tartrate (METOPROLOL TARTRATE) 100 Mg Tablet, 1 TAB PO BID, #60 TAB Prov:VARGAS RIOS CLIENT ENGAGEMENT MANAGER 01/09/19 Reported Medications Levothyroxine Sodium (LEVOTHYROXINE SODIUM) 50 Mcg Tablet, 50 MCG PO QDAY, TAB 12/02/18 Discontinued Scripts Amoxicillin/Pot Clav 875-125 Mg Tab (AUGMENTIN 875-125 TABLET) 1 Each Tablet, 1 TAB PO Q12H for 7 Days, #14 TAB Prov:AMAN RUGGIERO MD 01/10/19 Hydrocodone Bit/Acetaminophen (NORCO 7.5-325 TABLET) 1 Each Tablet, 1 EACH PO Q4H PRN for PAIN, #30 TAB Prov:MARKOS SINGH 01/09/19 Allergies: Coded Allergies: smallpox vaccine,chick-embryo,live (Verified Adverse Reaction, Intermediate, 01/10/19) HIGH FEVER, bupropion (Unverified Adverse Reaction, Mild, AMNESIA, 01/10/19) CAUSED LOW SODIUM Patient History: FH: Crohn's disease MOTHER FH: diabetes mellitus BROTHER OR SISTER Review of Systems Constitutional: Other (per hpi) Exam General Appearance: Alert, Awake, No Acute Distress Neuro: No Gross deficits Cardiovascular: Other (mildly tachy) Respiratory: No Respiratory Distress GI: Other (abd soft, inc c/d/i, mild swelling/ttp/erythem on right lateral aspect of phannestiel inc, stoma pink, normal color stool in bag) Medical Decision Making Data Points Result Diagram: 01/23/19 0700 01/23/19 0700 Assessment and Plan Problems: (1) Abdominal pain Status: Acute Assessment & Plan: 01/23/19: pt has thrombosis in intrahepatic portal veins and imv. she had would be more comfortable from a pain standpoint to spend the night in the hospital. plan: obs, lovenox then xareto, aspirated fluid collection at [facility], pain control, reg diet (2) Thrombosis mesenteric vessel Status: Acute Venous Thromboembolism Antithrombotics Is Pt On Any Antithrombotics?: Yes MARKOS SINGH Jan 23, 2019 15:05
[2019-01-23 15:15] VITALS: BP 110/63
[2019-01-23] MEDS ORDERED: HYDROmorphone HCL 2 MG/ML SDV ONE (15:57)
[2019-01-23] MEDS: HYDROmorphone HCL 2 MG/ML SDV IVP PRN ×2 (16:02→22:08)
[2019-01-23 23:45] VITALS: BP 122/61
[2019-01-24 04:45] VITALS: BP 141/74
[2019-01-24 07:35] VITALS: BP 114/63
[2019-01-24] MEDS ORDERED: LEVOTHYROXINE SOD 0.05 MG TAB PO SCH (07:45)
--- NOTE | 2019-01-24 08:14 | General Surgery Progress Note ---
Subjective Progress Notes Subjective has periods of no pain, then has lower abd pain again. feels ready to go home. Physical Exam Vital Signs Date Time Temp Pulse Resp B/P (MAP) Pulse Ox O2 Delivery O2 Flow Rate FiO2 01/24/19 07:35 97.7 82 24 114/63 (80) 96 Room Air 01/24/19 04:45 2.0 Intake and Output 01/24/19 07:01 Intake Total 1000 ml Output Total 700 ml Balance 300 ml Intake Oral 0 ml IV Total 1000 ml Output Urine Total 100 ml Stool Total 600 ml # Voids 8 General Appearance: No Acute Distress Cardiovascular: Other (reg rate) GI: Other (soft, inc c/d/i, stoma functioning) Result Diagram: 01/23/19 0700 01/23/19 0700 Assessment and Plan Problems: (1) Abdominal pain Status: Acute Assessment & Plan: 01/23/19: pt has thrombosis in intrahepatic portal veins and imv. she had would be more comfortable from a pain standpoint to spend the night in the hospital. plan: obs, lovenox then xareto, aspirated fluid collection at [facility], pain control, reg diet 01/24/19: doing fine. some low abd pain over night. plan: switched to xarelto. i aspirated with 18 ga [facility] where it was mildly red and swollen. small amount old blood returned but not pus. ambulate. diet as jesus. (2) Thrombosis mesenteric vessel Status: Acute Exam Sepsis Risk: No Definite Risk MARKOS SINGH Jan 24, 2019 08:14
[2019-01-24] MEDS ORDERED: METOPROLOL TART 50 MG TAB PO SCH (09:00)
[2019-01-24] MEDS ORDERED: RIVAROXABAN 10 MG TAB PO SCH (09:00)
[2019-01-24] MEDS: APAP/HYDROCODONE 325/7.5 TAB PO PRN ×2 (10:41→14:30)
[2019-01-24 12:50] VITALS: BP_SYST 112; BP_SYST 94; BP_DIAS 34; BP_DIAS 64
[2019-01-24] MEDS ORDERED: RIVA15TA PO (13:16)
--- NOTE | 2019-01-24 13:41 | Hospitalist Depart ---
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 she had would be more comfortable from a pain standpoint to spend the night in the hospital. plan: obs, lovenox then xareto, aspirated fluid collection at [facility], pain control, reg diet 01/24/19: doing fine. some low abd pain over night. plan: switched to xarelto. i aspirated with 18 ga from right side of [facility] where it was mildly red and swollen. small amount old blood returned but not pus. ambulate. diet as jesus. d/c home (2) Thrombosis mesenteric vessel Status: Acute Departure Weight (Pounds): 184 Weight (Ounces): 2.1 Result Diagram: 01/23/19 0700 01/23/19 0700 Condition: Improved Discharge Instructions Home Meds Active Scripts Rivaroxaban 15 Mg (XARELTO 15 MG) 15 Mg Tablet, 15 MG PO BID for 21 Days, #42 TAB Prov:MARKOS GEIGER 01/24/19 Hydrocodone Bit/Acetaminophen (NORCO 7.5-325 TABLET) 1 Each Tablet, 1 EACH PO Q6H PRN for PAIN, #30 TAB Prov:MARKOS GEIGER 01/19/19 Metoprolol Tartrate (METOPROLOL TARTRATE) 100 Mg Tablet, 1 TAB PO BID, #60 TAB Prov:VARGAS RIOS WET TRIMMER 01/09/19 Reported Medications Levothyroxine Sodium (LEVOTHYROXINE SODIUM) 50 Mcg Tablet, 50 MCG PO QDAY, TAB 12/02/18 Discontinued Scripts Amoxicillin/Pot Clav 875-125 Mg Tab (AUGMENTIN 875-125 TABLET) 1 Each Tablet, 1 TAB PO Q12H for 7 Days, #14 TAB Prov:AMAN RUGGIERO MD 01/10/19 Hydrocodone Bit/Acetaminophen (NORCO 7.5-325 TABLET) 1 Each Tablet, 1 EACH PO Q4H PRN for PAIN, #30 TAB Prov:MARKOS GEIGER 01/09/19 Diet: Regular Activity: As Tolerated Special Instructions: f/u dr. isadora geiger next tuesday Venous Thromboembolism Antithrombotics Is Pt On Any Antithrombotics?: Yes MARKOS GEIGER Jan 24, 2019 13:41
== END 2019-01-24 14:02 | disposition home or self-care (01) ==
LOC: ER 06:54 → INTOOBSV 11:21 → PED 11:21 → EDBEDREQ 11:24
PROVIDERS: ADMIT Surgery; ATTEND Surgery
DX: K55.069 Acute infarction of intestine, part and extent unspecified (principal)
CPT/HCPCS: 36415; 74177; 81001; 83605; 83690; 85025; 85610; 85730; 96361; 96372; 96374; 99284; A9270; G0378; J1170; J1650; J3010; J7030; Q0162; Q9967; 82040; 82247; 82310; 82374; 82435; 82565; 82947; 84075; 84132; 84155; 84295; 84450; 84460; 84520; S0119

== ENCOUNTER 2019-01-28 17:50 | Emergency (ER) | payer MEDICARE ==
[2018-12-25 13:58] VITALS: Wt 83.5 kg
[~2019-01-28 17:50] MED LIST changes: +RIVA15TA PO
--- NOTE | 2019-01-28 18:07 | ER Report ---
History and Physical Time Seen By MD: 18:05 Hx. of Stated Complaint: LOWER ABDO PAIN FOR 2 MONTHS. RECENT BOWEL SURGERY HPI/ROS CHIEF COMPLAINT: Lower abdominal pain HISTORY OF PRESENT ILLNESS: 74-year-old female states she has bilateral lower abdominal pain. Her pain medication prescribed by Dr. Alvarado is not covering it. She recently had a partial colectomy and repair of a colovaginal fistula 3 weeks ago had a partial bowel obstruction and had a colostomy. She's having good output from her right lower quadrant colostomy. Green liquid stool noted in the bag. Patient's complaining of excessive pain despite taking Lortab 5 mg every 6 hours. She notes no fever or chills. REVIEW OF SYSTEMS: Respiratory: No cough, no dyspnea. Cardiovascular: No chest pain, no palpitations. Gastrointestinal: As above Musculoskeletal: No back pain. Allergies: Coded Allergies: smallpox vaccine,chick-embryo,live (Verified Adverse Reaction, Intermediate, 01/28/19) HIGH FEVER, bupropion (Unverified Adverse Reaction, Mild, AMNESIA, 01/28/19) CAUSED LOW SODIUM Home Meds Active Scripts Hydrocodone Bit/Acetaminophen (HYDROCODON-ACETAMINOPHEN 5-325) 1 Each Tablet, 1 EACH PO Q4H PRN for PAIN, #12 TAKE ONE TABLET BY MOUTH EVERY 4-6 HOURS NEEDED FOR PAIN Prov:KEVIN ZAMORA DO 01/28/19 Rivaroxaban 15 Mg (XARELTO 15 MG) 15 Mg Tablet, 15 MG PO BID for 21 Days, #42 TAB Prov:MARKOS ALVARADO 01/24/19 Hydrocodone Bit/Acetaminophen (NORCO 7.5-325 TABLET) 1 Each Tablet, 1 EACH PO Q6H PRN for PAIN, #30 TAB Prov:MARKOS ALVARADO 01/19/19 Metoprolol Tartrate (METOPROLOL TARTRATE) 100 Mg Tablet, 1 TAB PO BID, #60 TAB Prov:VARGAS RIOS 01/09/19 Reported Medications Levothyroxine Sodium (LEVOTHYROXINE SODIUM) 50 Mcg Tablet, 50 MCG PO QDAY, TAB 12/02/18 Discontinued Scripts Amoxicillin/Pot Clav 875-125 Mg Tab (AUGMENTIN 875-125 TABLET) 1 Each Tablet, 1 TAB PO Q12H for 7 Days, #14 TAB Prov:AMAN RUGGIERO MD 01/10/19 Hydrocodone Bit/Acetaminophen (NORCO 7.5-325 TABLET) 1 Each Tablet, 1 EACH PO Q4H PRN for PAIN, #30 TAB Prov:MARKOS ALVARADO 01/09/19 Past Medical/Surgical History Past Medical History Endocrine: Reports hx of: hyperthyroidism Past Surgical History HEENT: Reports hx of: tonsillectomy Gastrointestinal: Reports hx of: appendectomy Gynecologic: Reports hx of: hysterectomy tubal ligation Reviewed Nurses Notes: Yes Old Medical Records Reviewed: Yes Hx Smoking: Yes Smoking Status: Former Smoker Exposure to Second Hand Smoke?: No Hx Substance Use Disorder: No Hx Alcohol Use: No Constitutional Vital Sign - Last 24 Hours 01/28/19 01/28/19 01/28/19 01/28/19 17:54 18:00 19:33 19:35 Temp 98.0 Pulse 87 76 83 Resp 18 B/P (MAP) 146/77 121/76 (91) 139/71 (93) Pulse Ox 93 97 O2 Delivery Room Air 01/28/19 19:50 Pulse 86 Pulse Ox 99 Physical Exam Vital signs stable, afebrile, pulse ox normal General Appearance: The patient is alert, has no immediate need for airway protection and no current signs of toxicity. Mild distress Eyes: Pupils equal and round no injection. Respiratory: Chest is non tender, lungs are clear to auscultation. Cardiac: regular rate and rhythm Gastrointestinal: Abdomen is soft, intact colostomy in right lower quadrant, green stool noted in bag, no masses, bowel sounds normal. Musculoskeletal: Neck: Neck is supple and non tender. Extremities have full range of motion and are non tender. Skin: No rashes or lesions. DIFFERENTIAL DIAGNOSIS: After history and physical exam differential diagnosis was considered for abdominal pain including but not limited to appendicitis, cholecystitis, gastritis, seroma, abdominal wall abscess, bowel obstruction, and urinary tract infection. Medical Decision Making Data Points Result Diagram: 01/28/19 1848 01/28/19 1848 Laboratory Hematology Test 01/28/19 18:48 01/28/19 20:00 Red Blood Count 4.32 M/uL (4.17-5.56) Mean Corpuscular Volume 83.7 fL (80.0-96.0) Mean Corpuscular Hemoglobin 28.0 pg (26.0-33.0) Mean Corpuscular Hemoglobin Concent 33.5 g/dL (32.0-36.0) Red Cell Distribution Width 14.5 % (11.5-14.5) Mean Platelet Volume 7.8 fL (7.2-11.1) Neutrophils (%) (Auto) % (39.4-72.5) Lymphocytes (%) (Auto) % (17.6-49.6) Monocytes (%) (Auto) % (4.1-12.4) Eosinophils (%) (Auto) % (0.4-6.7) Basophils (%) (Auto) % (0.3-1.4) Nucleated RBC Relative Count (auto) /100WBC Neutrophils # (Auto) K/uL (2.0-7.4) Lymphocytes # (Auto) K/uL (1.3-3.6) Monocytes # (Auto) K/uL (0.3-1.0) Eosinophils # (Auto) K/uL (0.0-0.5) Basophils # (Auto) K/uL (0.0-0.1) Nucleated RBC Absolute Count (auto) K/uL Neutrophils % (Manual) 38 % (39.4-72.5) Lymphocytes % (Manual) 42 % (17.6-49.6) Monocytes % (Manual) 18 % (4.1-12.4) Eosinophils % (Manual) 2 % (0.4-6.7) Basophils % (Manual) 0 % (0.3-1.4) Peripheral Blood Smear Yes Y/N Prothrombin Time 14.6 seconds (12.0-14.4) Prothromb Time International Ratio 1.13 Activated Partial Thromboplast Time 39 seconds (23-35) Sodium Level 136 mmol/L (137-145) Potassium Level 4.1 mmol/L (3.5-5.0) Chloride Level 103 mmol/L (98-107) Carbon Dioxide Level 20 mmol/L (22-31) Blood Urea Nitrogen 12 mg/dl (7-18) Creatinine 0.70 mg/dl (0.52-1.04) Glomerular Filtration Rate Calc > 60.0 Random Glucose 92 mg/dl (75-110) Calcium Level 9.0 mg/dl (8.4-10.2) Total Bilirubin 0.7 mg/dl (0.2-1.3) Aspartate Amino Transf (AST/SGOT) 30 U/L (0-35) Alanine Aminotransferase (ALT/SGPT) 34 U/L (0-56) Alkaline Phosphatase 83 U/L (0-126) C-Reactive Protein 1.4 mg/dl (<1.0) Total Protein 6.9 g/dl (6.3-8.2) Albumin 3.8 g/dl (3.5-5.0) Amylase Level 35 U/L (0-110) Lipase 94 U/L (23-300) Urine Color Yellow Urine Clarity Clear Urine pH 5.0 pH (4.8-9.5) Urine Specific [place] >1.060 Urine Protein Negative mg/dL (NEGATIVE) Urine Glucose (UA) Negative mg/dL (NEGATIVE) Urine Ketones Negative mg/dL (NEGATIVE) Urine Blood Negative (NEGATIVE) Urine Nitrite Negative (NEGATIVE) Urine Bilirubin Negative (NEGATIVE) Urine Urobilinogen Negative mg/dL (0.2-1.9) Urine Leukocyte Esterase Negative (NEGATIVE) Urine RBC 2 /HPF (0-2/HPF) Urine WBC 1 /HPF (0-5/HPF) Urine Squamous Epithelial Cells Many /LPF (</=FEW) Urine Bacteria Negative /HPF (NONE-FEW) Urine Mucus Few /HPF (NONE-FEW) Chemistry Test 01/28/19 18:48 01/28/19 20:00 White Blood Count 9.4 k/uL (4.5-11.0) Red Blood Count 4.32 M/uL (4.17-5.56) Hemoglobin 12.1 g/dL (12.0-16.0) Hematocrit 36.2 % (34.0-47.0) Mean Corpuscular Volume 83.7 fL (80.0-96.0) Mean Corpuscular Hemoglobin 28.0 pg (26.0-33.0) Mean Corpuscular Hemoglobin Concent 33.5 g/dL (32.0-36.0) Red Cell Distribution Width 14.5 % (11.5-14.5) Platelet Count 218 K/uL (150-450) Mean Platelet Volume 7.8 fL (7.2-11.1) Neutrophils (%) (Auto) % (39.4-72.5) Lymphocytes (%) (Auto) % (17.6-49.6) Monocytes (%) (Auto) % (4.1-12.4) Eosinophils (%) (Auto) % (0.4-6.7) Basophils (%) (Auto) % (0.3-1.4) Nucleated RBC Relative Count (auto) /100WBC Neutrophils # (Auto) K/uL (2.0-7.4) Lymphocytes # (Auto) K/uL (1.3-3.6) Monocytes # (Auto) K/uL (0.3-1.0) Eosinophils # (Auto) K/uL (0.0-0.5) Basophils # (Auto) K/uL (0.0-0.1) Nucleated RBC Absolute Count (auto) K/uL Neutrophils % (Manual) 38 % (39.4-72.5) Lymphocytes % (Manual) 42 % (17.6-49.6) Monocytes % (Manual) 18 % (4.1-12.4) Eosinophils % (Manual) 2 % (0.4-6.7) Basophils % (Manual) 0 % (0.3-1.4) Peripheral Blood Smear Yes Y/N Prothrombin Time 14.6 seconds (12.0-14.4) Prothromb Time International Ratio 1.13 Activated Partial Thromboplast Time 39 seconds (23-35) Glomerular Filtration Rate Calc > 60.0 Calcium Level 9.0 mg/dl (8.4-10.2) Total Bilirubin 0.7 mg/dl (0.2-1.3) Aspartate Amino Transf (AST/SGOT) 30 U/L (0-35) Alanine Aminotransferase (ALT/SGPT) 34 U/L (0-56) Alkaline Phosphatase 83 U/L (0-126) C-Reactive Protein 1.4 mg/dl (<1.0) Total Protein 6.9 g/dl (6.3-8.2) Albumin 3.8 g/dl (3.5-5.0) Amylase Level 35 U/L (0-110) Lipase 94 U/L (23-300) Urine Color Yellow Urine Clarity Clear Urine pH 5.0 pH (4.8-9.5) Urine Specific [place] >1.060 Urine Protein Negative mg/dL (NEGATIVE) Urine Glucose (UA) Negative mg/dL (NEGATIVE) Urine Ketones Negative mg/dL (NEGATIVE) Urine Blood Negative (NEGATIVE) Urine Nitrite Negative (NEGATIVE) Urine Bilirubin Negative (NEGATIVE) Urine Urobilinogen Negative mg/dL (0.2-1.9) Urine Leukocyte Esterase Negative (NEGATIVE) Urine RBC 2 /HPF (0-2/HPF) Urine WBC 1 /HPF (0-5/HPF) Urine Squamous Epithelial Cells Many /LPF (</=FEW) Urine Bacteria Negative /HPF (NONE-FEW) Urine Mucus Few /HPF (NONE-FEW) Coagulation Test 01/28/19 18:48 Prothrombin Time 14.6 seconds Prothromb Time International Ratio 1.13 Activated Partial Thromboplast Time 39 seconds Urinalysis Test 01/28/19 20:00 Urine Color Yellow Urine Clarity Clear Urine pH 5.0 pH (4.8-9.5) Urine Specific [place] >1.060 Urine Protein Negative mg/dL (NEGATIVE) Urine Glucose (UA) Negative mg/dL (NEGATIVE) Urine Ketones Negative mg/dL (NEGATIVE) Urine Blood Negative (NEGATIVE) Urine Nitrite Negative (NEGATIVE) Urine Bilirubin Negative (NEGATIVE) Urine Urobilinogen Negative mg/dL (0.2-1.9) Urine Leukocyte Esterase Negative (NEGATIVE) Urine RBC 2 /HPF (0-2/HPF) Urine WBC 1 /HPF (0-5/HPF) Urine Squamous Epithelial Cells Many /LPF (</=FEW) Urine Bacteria Negative /HPF (NONE-FEW) Urine Mucus Few /HPF (NONE-FEW) EKG/Imaging Imaging Results: CT scan of the abdomen and pelvis with IV contrast was obtained. The results of the study are CT abdomen and pelvis with IV contrast Indication: Bilateral lower abdominal pain. Comparison: 01/23/2019.. Technique: Axial CT images were obtained through the abdomen and pelvis during injection of nonionic iodinated intravenous contrast. Reformatted coronal and sagittal images were also obtained. One of the following dose optimization techniques was utilized in the performance of this exam: Automated exposure control; adjustment of the mA and/or kV according to the patient's size; or use of an iterative reconstruction technique. Specific details can be referenced in the facility's radiology CT exam operational policy. Contrast: 75 ml of Isovue-370 IV contrast. Findings: Lower lung ramos: Limited views lower lung field are unremarkable. Liver: Resolution of the previous portal venous thrombus. The portal veins appear to be well opacified. The hepatic veins are opacified. No focal abnormality to the liver. Biliary: Status post cholecystectomy. The biliary system is unremarkable. Pancreas: Mild fatty replacement without focal abnormality. Spleen: Normal appearance. Adrenal glands: Unremarkable. Kidneys / retroperitoneum: No evidence of nephrolithiasis or hydronephrosis. Stable small right renal cyst. No solid renal lesions. Bowel / peritoneum / mesenteries: The stomach is unremarkable. The duodenum is unremarkable on this exam. The small bowel shows no focal normality or obstruction. The stable right ostomy is unremarkable. The colon shows scattered diverticula without pericolonic inflammation. No free air, free fluid, fluid collections or focal areas of inflammation. The pelvis again show some mild fat stranding which is stable without fluid collection. Fat stranding is also seen in the anterior subcutaneous fat of the abdominal wall without fluid collection. Lymph node assessment: No pathologic adenopathy identified. Pelvic structures: Status post hysterectomy. The remaining pelvic structures visualized within normal limits. Surgical clips and sutures seen along the sigmoid region without focal abnormality. These are stable. The remaining pelvic structures visualized within normal limits. Vessels: Mild atherosclerotic calcifications seen throughout a nonaneurysmal abdominal aorta and branches. No appreciable residual of venous thrombus is seen in the inferior mesenteric vein. Musculoskeletal / Body wall: No acute or aggressive osseous abnormality. Degenerative changes spine. Improved appearance to the anterior right abdominal wall musculature. No fluid collections. IMPRESSION: 1. No residual thrombus. The portal veins appear well opacified today. No indication of mesenteric 2. No fluid collections. Improved appearance to the abdominal wall and the pelvic region. 3. Diverticulosis without radiographic indication diverticulitis. 4. Other chronic stable findings as above. The study was read by the radiologist. I viewed the images myself on the PACS system. ED Course/Re-evaluation Clinical Indication for ER IV: IV Access ED Course Patient was admitted to an examination room. H&P was done. The differential diagnoses was considered. Patient with an extensive past medical history recent surgery. Patient complaining of lower abdominal pain. He denies fever, chills or dysuria. She was recently started on Augmentin 2 weeks ago. For an abdominal wall fluid collection. Patient notes no vomiting. She notes good colostomy output. He denies dysuria. Patient has a peripheral IV established. Diagnostic laboratory studies are unremarkable. She has a repeat CT scan of the abdomen and pelvis, which is unremarkable. Results are discussed with her. Patient advised to increase her pain pills every 4 hours. Follow-up with Dr. Alvarado as planned on Tuesday. Decision to Disposition Date: Jan 28, 2019 Decision to Disposition Time: 20:27 Depart Departure Latest Vital Signs Vital Signs Date Time Temp Pulse Resp B/P (MAP) Pulse Ox O2 Delivery O2 Flow Rate FiO2 01/28/19 19:50 86 99 01/28/19 19:33 139/71 (93) 01/28/19 17:54 98.0 18 Room Air Impression: Primary Impression: Abdominal pain Additional Impression: Thrombosis mesenteric vessel Condition: Improved Disposition: HOME OR SELF-CARE Referrals: CARMEN BEE MD (PCP) New Scripts Hydrocodone Bit/Acetaminophen (HYDROCODON-ACETAMINOPHEN 5-325) 1 Each Tablet 1 EACH PO Q4H PRN for PAIN, #12 TAKE ONE TABLET BY MOUTH EVERY 4-6 HOURS NEEDED FOR PAIN Prov: KEVIN ZAMORA DO 01/28/19 Patient Instructions: Abdominal Pain (ED) Additional Instructions: Increase the frequency of your hydrocodone to every 4 hours Follow-up with Dr. Alvarado as planned on Tuesday Problem Qualifiers Primary Impression: Abdominal pain Abdominal location: lower abdomen, unspecified Qualified Codes: R10.30 - Lower abdominal pain, unspecified KEVIN ZAMORA DO Jan 28, 2019 18:07
[2019-01-28] MEDS ORDERED: IOPAMIDOL 76% 100 ML INFUS BTL 100 ML ONE (18:26)
[2019-01-28 18:58] LABS: PLATELET COUNT, AUTOMATED 218 K/uL (150-450)
[2019-01-28 19:08] LABS: INR 1.13
[2019-01-28 19:33] VITALS: BP 139/71
--- NOTE | 2019-01-28 20:17 | RADIOLOGY IMAGING REPORT ---
FACILITY: [facility] PATIENT NAME: Chely Maynard : 1945 MR: [id number] V: [id number] EXAM DATE: ORDERING PHYSICIAN: KEVIN ZAMORA TECHNOLOGIST: Location: [facility] Patient: Chely Maynard : 1945 Visit/Account:[id number] Date of Sevice: 01/28/2019 CT abdomen and pelvis with IV contrast Indication: Bilateral lower abdominal pain. Comparison: 01/23/2019.. Technique: Axial CT images were obtained through the abdomen and pelvis during injection of nonioni c iodinated intravenous contrast. Reformatted coronal and sagittal images were also obtained. One of the following dose optimization techniques was utilized in the performance of this exam: Autom ated exposure control; adjustment of the mA and/or kV according to the patient's size; or use of an i terative reconstruction technique. Specific details can be referenced in the facility's radiology C T exam operational policy. Contrast: 75 ml of Isovue-370 IV contrast. Findings: Lower lung ramos: Limited views lower lung field are unremarkable. Liver: Resolution of the previous portal venous thrombus. The portal veins appear to be well opacified. Th e hepatic veins are opacified. No focal abnormality to the liver. Biliary: Status post cholecystectomy. The biliary system is unremarkable. Pancreas: Mild fatty replacement without focal abnormality. Spleen: Normal appearance. Adrenal glands: Unremarkable. Kidneys / retroperitoneum: No evidence of nephrolithiasis or hydronephrosis. Stable small right mitra l cyst. No solid renal lesions. Bowel / peritoneum / mesenteries: The stomach is unremarkable. The duodenum is unremarkable on this exam. The small bowel shows no focal normality or obstruction. The stable right ostomy is unremarka ble. The colon shows scattered diverticula without pericolonic inflammation. No free air, free fluid, fluid collections or focal areas of inflammation. The pelvis again show axel e mild fat stranding which is stable without fluid collection. Fat stranding is also seen in the ant erior subcutaneous fat of the abdominal wall without fluid collection. Lymph node assessment: No pathologic adenopathy identified. Pelvic structures: Status post hysterectomy. The remaining pelvic structures visualized within no rmal limits. Surgical clips and sutures seen along the sigmoid region without focal abnormality. Th margaret are stable. The remaining pelvic structures visualized within normal limits. Vessels: Mild atherosclerotic calcifications seen throughout a nonaneurysmal abdominal aorta and bran ches. No appreciable residual of venous thrombus is seen in the inferior mesenteric vein. Musculoskeletal / Body wall: No acute or aggressive osseous abnormality. Degenerative changes spine. Improved appearance to the anterior right abdominal wall musculature. No fluid collections. IMPRESSION: 1. No residual thrombus. The portal veins appear well opacified today. No indication of mesenteric 2. No fluid collections. Improved appearance to the abdominal wall and the pelvic region. 3. Diverticulosis without radiographic indication diverticulitis. 4. Other chronic stable findings as above. Report Dictated By: Hubert Hargrove at 01/28/2019 7:59 PM Report E-Signed By: Hubert Hargrove at 01/28/2019 8:11 PM WSN:[id number]
[2019-01-28] MEDS ORDERED: LOR5/325 PO (20:30)
[2019-01-28] MEDS ORDERED: APAP/HYDROCODONE 325/5 TAB PO ONE (20:45)
== END 2019-01-28 21:12 | disposition home or self-care (01) ==
LOC: ER 18:08
DX: R10.31 Right lower quadrant pain (principal); R10.32 Left lower quadrant pain; K55.069 Acute infarction of intestine, part and extent unspecified
CPT/HCPCS: 74177; 81001; 82150; 83690; 85025; 85610; 85730; 86140; 99284; A9270; Q9967; 82040; 82247; 82310; 82374; 82435; 82565; 82947; 84075; 84132; 84155; 84295; 84450; 84460; 84520

== ENCOUNTER 2019-01-29 19:18 | Emergency (ER) | payer MEDICARE ==
[2018-12-25 13:58] VITALS: Wt 83.5 kg
--- NOTE | 2019-01-29 19:19 | ER Report ---
History and Physical Time Seen By MD: 19:17 HPI/ROS CHIEF COMPLAINT: abdominal pain HISTORY OF PRESENT ILLNESS: This is a 74 year old female. She is having ongoing abdominal pain. Her abdominal pain is diffuse, somewhat worse in the lower abdom en throughout the lower abdomen. 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 She is having good output from the right lower quadrant colostomy. She is using Lortab 7.5 mg tablets every 4 hours for pain. The pain does go away briefly but then comes back within a few hours. She has no fevers or chills. She is urinating without any difficulty. She denies any chest pain or shortness of breath. She is still having a little sore on the right lower abdomen which still has some serous drainage. 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 Also had some changes in the soft tissue that were concerning for possible phlegmon. She has finished her course of Augmentin. She was seen in the ER last night and had a CT scan and labs. I was able to review these and CT scan actually showed no further thrombus in any of the vessels and the changes in the abdominal wall were gone. There were no other acute findings on the CT scan. Her labs were fairly normal other than her sodium being slightly low at 136. Allergies: Coded Allergies: smallpox vaccine,chick-embryo,live (Verified Adverse Reaction, Intermedia te, 01/29/19) HIGH FEVER, bupropion (Unverified Adverse Reaction, Mild, AMNESIA, 01/29/19) CAUSED LOW SODIUM Home Meds Active Scripts Hydrocodone Bit/Acetaminophen (HYDROCODON-ACETAMINOPHEN 5-325) 1 Each Tablet, 1 EACH PO Q4H PRN for PAIN, #12 TAKE ONE TABLET BY MOUTH EVERY 4-6 HOURS NEEDED FOR PAIN Prov:KEVIN ZAMORA DO 01/28/19 Rivaroxaban 15 Mg (XARELTO 15 MG) 15 Mg Tablet, 15 MG PO BID for 21 Days, #42 TAB Prov:MARKOS ALVARADO 01/24/19 Hydrocodone Bit/Acetaminophen (NORCO 7.5-325 TABLET) 1 Each Tablet, 1 EACH PO Q6H PRN for PAIN, #30 TAB Prov:MARKOS ALVARADO 01/19/19 Metoprolol Tartrate (METOPROLOL TARTRATE) 100 Mg Tablet, 1 TAB PO BID, #60 TAB Prov:VARGAS RIOS Edgardo CREDIT COLLECTIONS MANAGER 01/09/19 Reported Medications Levothyroxine Sodium (LEVOTHYROXINE SODIUM) 50 Mcg Tablet, 50 MCG PO QDAY, TAB 12/02/18 Discontinued Scripts Amoxicillin/Pot Clav 875-125 Mg Tab (AUGMENTIN 875-125 TABLET) 1 Each Tablet, 1 TAB PO Q12H for 7 Days, #14 TAB Prov:AMAN RUGGIERO MD 01/10/19 Hydrocodone Bit/Acetaminophen (NORCO 7.5-325 TABLET) 1 Each Tablet, 1 EACH PO Q4H PRN for PAIN, #30 TAB Prov:MARKOS ALVARADO 01/09/19 Reviewed Nurses Notes: Yes Hx Smoking: Yes Smoking Status: Former Smoker Exposure to Second Hand Smoke?: No Hx Substance Use Disorder: No Hx Alcohol Use: No Constitutional Vital Sign - Last 24 Hours 01/29/19 19:26 Temp 97.5 Pulse 124 Resp 18 B/P (MAP) 117/79 Pulse Ox 93 O2 Delivery Room Air Physical Exam General Appearance: The patient is alert. Having some distress due to the pain. Non-toxic in appearance. Eyes: Pupils are equal, round. No pallor, injection or icterus. ENT: Mucous membranes are moist. Normal oral mucosa. Posterior oropharynx is normal. Neck: Supple and non tender. Respiratory: Lungs are clear to auscultation. Cardiovascular: Regular rate and rhythm. No murmurs, gallops or rubs. Normal capillary refill. Gastrointestinal: Abdomen is soft, but diffuse discomfort, worse across lower abdomen. Has normal green-brown stool in colostomy. Normal appearing colostomy mucosa. Nondistended. Guarding, but no rebound. Normal active bowel sounds. No costovertebral angle tenderness with percussion. Neurological: Alert and oriented x3. Skin: Warm and dry. Has small area in right lower abdomen with skin breakdown, but dried blood on bandaid and no current drainage. No more tender over this s pot than the rest of the abdomen. DIFFERENTIAL DIAGNOSIS: After history and physical exam, differential diagnosis was considered for a patient with continued abdominal pain, undifferentiated at this time, normal evaluation last night. Pain could be normal postoperative, uncontrolled by current medications, could be related to inflammation from the vascular thrombus, now resolved with her Xarelto. No outward signs of infection and no fevers, with normal white count last night. Medical Decision Making Data Points Result Diagram: 01/29/19200601/29/192006 Laboratory Hematology Test 01/29/19 20:07 Red Blood Count 4.46 M/uL (4.17-5.56) Mean Corpuscular Volume 83.4 fL (80.0-96.0) Mean Corpuscular Hemoglobin 29.5 pg (26.0-33.0) Mean Corpuscular Hemoglobin Concent 35.3 g/dL (32.0-36.0) Red Cell Distribution Width 14.5 % (11.5-14.5) Mean Platelet Volume 7.9 fL (7.2-11.1) Neutrophils (%) (Auto) % (39.4-72.5) Lymphocytes (%) (Auto) % (17.6-49.6) Monocytes (%) (Auto) % (4.1-12.4) Eosinophils (%) (Auto) % (0.4-6.7) Basophils (%) (Auto) % (0.3-1.4) Nucleated RBC Relative Count (auto) /100WBC Neutrophils # (Auto) K/uL (2.0-7.4) Lymphocytes # (Auto) K/uL (1.3-3.6) Monocytes # (Auto) K/uL (0.3-1.0) Eosinophils # (Auto) K/uL (0.0-0.5) Basophils # (Auto) K/uL (0.0-0.1) Nucleated RBC Absolute Count (auto) K/uL Neutrophils % (Manual) 33 % (39.4-72.5) Lymphocytes % (Manual) 54 % (17.6-49.6) Monocytes % (Manual) 10 % (4.1-12.4) Eosinophils % (Manual) 3 % (0.4-6.7) Basophils % (Manual) 0 % (0.3-1.4) Sodium Level 135 mmol/L (137-145) Potassium Level 3.7 mmol/L (3.5-5.0) Chloride Level 101 mmol/L (98-107) Carbon Dioxide Level 21 mmol/L (22-31) Blood Urea Nitrogen 12 mg/dl (7-18) Creatinine 0.80 mg/dl (0.52-1.04) Glomerular Filtration Rate Calc > 60.0 Random Glucose 94 mg/dl (75-110) Calcium Level 8.9 mg/dl (8.4-10.2) Total Bilirubin 0.6 mg/dl (0.2-1.3) Aspartate Amino Transf (AST/SGOT) 22 U/L (0-35) Alanine Aminotransferase (ALT/SGPT) 37 U/L (0-56) Alkaline Phosphatase 101 U/L (0-126) Total Protein 7.3 g/dl (6.3-8.2) Albumin 4.0 g/dl (3.5-5.0) Amylase Level 54 U/L (0-110) Lipase 78 U/L (23-300) Chemistry Test 01/29/19 20:07 White Blood Count 8.9 k/uL (4.5-11.0) Red Blood Count 4.46 M/uL (4.17-5.56) Hemoglobin 13.2 g/dL (12.0-16.0) Hematocrit 37.2 % (34.0-47.0) Mean Corpuscular Volume 83.4 fL (80.0-96.0) Mean Corpuscular Hemoglobin 29.5 pg (26.0-33.0) Mean Corpuscular Hemoglobin Concent 35.3 g/dL (32.0-36.0) Red Cell Distribution Width 14.5 % (11.5-14.5) Platelet Count 239 K/uL (150-450) Mean Platelet Volume 7.9 fL (7.2-11.1) Neutrophils (%) (Auto) % (39.4-72.5) Lymphocytes (%) (Auto) % (17.6-49.6) Monocytes (%) (Auto) % (4.1-12.4) Eosinophils (%) (Auto) % (0.4-6.7) Basophils (%) (Auto) % (0.3-1.4) Nucleated RBC Relative Count (auto) /100WBC Neutrophils # (Auto) K/uL (2.0-7.4) Lymphocytes # (Auto) K/uL (1.3-3.6) Monocytes # (Auto) K/uL (0.3-1.0) Eosinophils # (Auto) K/uL (0.0-0.5) Basophils # (Auto) K/uL (0.0-0.1) Nucleated RBC Absolute Count (auto) K/uL Neutrophils % (Manual) 33 % (39.4-72.5) Lymphocytes % (Manual) 54 % (17.6-49.6) Monocytes % (Manual) 10 % (4.1-12.4) Eosinophils % (Manual) 3 % (0.4-6.7) Basophils % (Manual) 0 % (0.3-1.4) Glomerular Filtration Rate Calc > 60.0 Calcium Level 8.9 mg/dl (8.4-10.2) Total Bilirubin 0.6 mg/dl (0.2-1.3) Aspartate Amino Transf (AST/SGOT) 22 U/L (0-35) Alanine Aminotransferase (ALT/SGPT) 37 U/L (0-56) Alkaline Phosphatase 101 U/L (0-126) Total Protein 7.3 g/dl (6.3-8.2) Albumin 4.0 g/dl (3.5-5.0) Amylase Level 54 U/L (0-110) Lipase 78 U/L (23-300) ED Course/Re-evaluation Clinical Indication for ER IV: Hydration, IV Access ED Course Repeated labs today, unchanged and no major problems other than the slightly low sodium level. Did not recommend repeat CT scan. Tried giving Percocet 5/325, two tablets and gavei 1mg of Dilaudid and a liter of normal saline. She feels better, but pain is not gone. Recommended trial of the Percocet and to follow-up with Dr. Alvarado tomorrow for his repeat evaluation. Decision to Disposition Date: Jan 29, 2019 Decision to Disposition Time: 20:57 Depart Departure Latest Vital Signs Vital Signs Date Time Temp Pulse Resp B/P (MAP) Pulse Ox O2 Delivery O2 Flow Rate FiO2 01/29/19 19:26 97.5 124 18 117/79 93 Room Air Impression: Primary Impression: Abdominal pain Condition: Condition Unchanged Disposition: HOME OR SELF-CARE Referrals: CARMEN BEE MD (PCP) Patient Instructions: Abdominal Pain (ED) Additional Instructions: We did not find a dangerous cause for abdominal pain. Repeat labs were normal tonight. We reviewed the CT Scan done last night, and the scan did not show any acute problems other than post-surgical changes. Trial of Percocet 5/325, 2 every 4 hours as needed for pain. Please call Dr. Alvarado's office tomorrow Problem Qualifiers Primary Impression: Abdominal pain Abdominal location: generalized Qualified Codes: R10.84 - Generalized abdominal pain JORDIN KRUSE MD Jan 29, 2019 19:19
[2019-01-29 19:26] VITALS: BP 117/79
[2019-01-29] MEDS ORDERED: oxyCODON/ACET (*)5/325MG (CII) 1 TAB TAB PO ONE (19:40)
[2019-01-29 20:25] LABS: PLATELET COUNT, AUTOMATED 239 K/uL (150-450)
[2019-01-29] MEDS ORDERED: HYDROMORPHONE HCL 1 MG/ML SYRINGE IVP ONE (20:35)
[2019-01-29] MEDS ORDERED: NS(*) 0.9% 1000 ML BAG 1,000 ML IV ONE (20:35)
[2019-01-29] MEDS ORDERED: oxyCODONE/ACETAMIN 5/325MG TH 2 TAB/BOTTLE PO ONE (21:00)
[2019-01-30] MEDS ORDERED: OXYC-870 PO (16:52)
== END 2019-01-29 21:40 | disposition home or self-care (01) ==
LOC: ER 19:36
DX: R10.84 Generalized abdominal pain (principal)
CPT/HCPCS: 36415; 82150; 83690; 85025; 96374; 99283; A9270; J1170; J7030; 82040; 82247; 82310; 82374; 82435; 82565; 82947; 84075; 84132; 84155; 84295; 84450; 84460; 84520

== ENCOUNTER 2019-01-30 15:58 | Emergency (ER) | payer MEDICARE ==
[2018-12-25 13:58] VITALS: Wt 81.6 kg
[2019-01-30 16:06] VITALS: BP 123/86
--- NOTE | 2019-01-30 16:09 | ER Report ---
History and Physical Time Seen By MD: 16:07 Hx. of Stated Complaint: lovwer abd pain since this am HPI/ROS CHIEF COMPLAINT: Lower abdominal pain HISTORY OF PRESENT ILLNESS: 74-year-old female patient presents to the emergency room with complaint of right lower quadrant abdominal pain. Patient states that the pain seems to radiate across the abdomen. She states is very similar to what she was seen for here yesterday as well as today before. Patient states that the pain does not seem to be worse. She denies having any fevers, chills, nausea, vomiting or changes with her output from her ostomy. 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 She states that she's been having persistent pain with this. She states that she is concerned about the pain lasting as long as it has. She states that she was seen last night, was sent with a prescription for Percocet which seemed to help with her pain. She states she did take 2 at a time. She states that she does have an appointment with Dr. Alvarado, general surgeon, on of this week. It had originally been scheduled for Tuesday, however it was bumped up when they called today. is concerned that there may be a misdiagnosis due to the pain being so persistent. REVIEW OF SYSTEMS: Respiratory: No cough, no dyspnea. Cardiovascular: No chest pain, no palpitations. Gastrointestinal: As noted above Musculoskeletal: No back pain. Allergies: Coded Allergies: smallpox vaccine,chick-embryo,live (Verified Adverse Reaction, Intermediate, 01/30/19) HIGH FEVER, bupropion (Unverified Adverse Reaction, Mild, AMNESIA, 01/30/19) CAUSED LOW SODIUM Home Meds Active Scripts Oxycodone Hcl/Acetaminophen (PERCOCET 10-325 MG TABLET) 1 Each Tablet, 1 EACH PO Q4-6H PRN for PAIN, #20 TAB Prov:CHANO DOWNEYP 01/30/19 Hydrocodone Bit/Acetaminophen (HYDROCODON-ACETAMINOPHEN 5-325) 1 Each Tablet, 1 EACH PO Q4H PRN for PAIN, #12 TAKE ONE TABLET BY MOUTH EVERY 4-6 HOURS NEEDED FOR PAIN Prov:KEVIN ZAMORA DO 01/28/19 Rivaroxaban 15 Mg (XARELTO 15 MG) 15 Mg Tablet, 15 MG PO BID for 21 Days, #42 TAB Prov:MARKOS ALVARADO 01/24/19 Hydrocodone Bit/Acetaminophen (NORCO 7.5-325 TABLET) 1 Each Tablet, 1 EACH PO Q6H PRN for PAIN, #30 TAB Prov:MARKOS ALVARADO 01/19/19 Metoprolol Tartrate (METOPROLOL TARTRATE) 100 Mg Tablet, 1 TAB PO BID, #60 TAB Prov:VARGAS RIOS MILIEU TECHNICIAN 01/09/19 Reported Medications Levothyroxine Sodium (LEVOTHYROXINE SODIUM) 50 Mcg Tablet, 50 MCG PO QDAY, TAB 12/02/18 Discontinued Scripts Amoxicillin/Pot Clav 875-125 Mg Tab (AUGMENTIN 875-125 TABLET) 1 Each Tablet, 1 TAB PO Q12H for 7 Days, #14 TAB Prov:AMAN RUGGIERO MD 01/10/19 Hydrocodone Bit/Acetaminophen (NORCO 7.5-325 TABLET) 1 Each Tablet, 1 EACH PO Q4H PRN for PAIN, #30 TAB Prov:MARKOS ALVARADO 01/09/19 Past Medical/Surgical History Patient has a past medical history of hypertension, asthma, back pain, hypothyroidism, depression. Patient has a surgical history of appendectomy, cholecystectomy, repair of a vaginal fistula, hysterectomy, tonsillectomy, blepharoplasty, bilateral cataract surgery. Reviewed Nurses Notes: Yes Hx Smoking: Yes Smoking Status: Former Smoker Exposure to Second Hand Smoke?: No Hx Substance Use Disorder: No Hx Alcohol Use: No Constitutional Vital Sign - Last 24 Hours 01/30/19 01/30/19 01/30/19 01/30/19 16:02 16:06 16:30 17:00 Temp 97.9 Pulse 112 76 Resp 20 B/P (MAP) 123/86 (98) 123/86 Pulse Ox 93 91 93 O2 Delivery Room Air Physical Exam General Appearance: The patient is alert, has no immediate need for airway protection and no current signs of toxicity. Respiratory: Chest is non tender, lungs are clear to auscultation. Cardiac: regular rate and rhythm Gastrointestinal: Abdomen is soft and tender in the right lower quadrant, no masses, bowel sounds normal. Musculoskeletal: Neck: Neck is supple and non tender. Extremities have full range of motion and are non tender. Skin: No rashes or lesions. DIFFERENTIAL DIAGNOSIS: After history and physical exam differential diagnosis was considered for abdominal pain including but not limited to appendicitis, cholecystitis, gastritis and urinary tract infection. Medical Decision Making ED Course/Re-evaluation ED Course Patient was admitted and examined, history and physical were obtained. Differential diagnoses were considered. On examination lungs are clear, heart is regular, abdomen soft and tender in the right lower quadrant. I did discuss the case with Dr. Alvarado, general surgeon, we discussed the labs from last couple d ays, the CT scan which was done on the . He did not feel that it would be worthwhile to do any repeat lab work or imaging. With the patient having good success with the Percocet I opted to continue treatment with the Percocet 10/325. My thought at that time as if she is taking the Percocet every 4 hours that she get up to 3.9 g of Tylenol. This will hopefully be able to manage her pain and make sure she gets less Tylenol. She verbalized understanding and agreement. Dr. Alvarado did state that he would talk with the desktop engineer people in the medical office building and inform them that if the patient were to call that they would arrange for her to be seen the same day, excluding days that he is in surgery. I did express this to the patient and her who did seem to be relieved. We'll go ahead and discharge patient at this time. They verbalized understanding and agreement with plan. Decision to Disposition Date: Jan 30, 2019 Decision to Disposition Time: 16:49 Depart Departure Latest Vital Signs Vital Signs Date Time Temp Pulse Resp B/P (MAP) Pulse Ox O2 Delivery O2 Flow Rate FiO2 01/30/19 17:00 93 01/30/19 16:30 76 01/30/19 16:06 97.9 20 123/86 Room Air Impression: Primary Impression: Abdominal pain Condition: Condition Unchanged Disposition: HOME OR SELF-CARE Referrals: CARMEN BEE MD (PCP) New Scripts Oxycodone Hcl/Acetaminophen (PERCOCET 10-325 MG TABLET) 1 Each Tablet 1 EACH PO Q4-6H PRN for PAIN, #20 TAB Prov: NASREENCHANO FNP 01/30/19 Patient Instructions: Abdominal Pain (ED) Additional Instructions: Get plenty of rest. Limit activity by pain. Take the medication as prescribed. Follow up with Dr. Alvarado on . If you are unable to make it till call his office and he will fit you into his schedule. Return to the ER if condition worsens. Problem Qualifiers Primary Impression: Abdominal pain Abdominal location: right lower quadrant Qualified Codes: R10.31 - Right lower quadrant pain CHANO DOWNEY Jan 30, 2019 16:09
[2019-01-30] MEDS ORDERED: OXYC-870 PO (16:52)
[2019-02-01] MEDS ORDERED: AMOX-559 PO (14:41)
[2019-02-01] MEDS ORDERED: OXYC-870 PO (14:47)
== END 2019-01-30 17:00 | disposition home or self-care (01) ==
LOC: ER 16:06
DX: R10.31 Right lower quadrant pain (principal)
CPT/HCPCS: 99281

== ENCOUNTER 2019-02-04 18:39 | Emergency (ER) | payer MEDICARE ==
[2018-12-25 13:58] VITALS: BMI 38.5
[~2019-02-04 18:39] MED LIST changes: +OXYC-870 PO
--- NOTE | 2019-02-04 19:00 | ER Report ---
History and Physical Time Seen By MD: 18:58 HPI/ROS CHIEF COMPLAINT: Abdominal pain HISTORY OF PRESENT ILLNESS: 72-year-old female patient presents to emergency room with complaint of abdominal pain. Patient states that she has been having pain since she had surgery. Patient states that the pain she is having is same as the pain she's been having for the past several weeks. She denies any fevers, chills, nausea, vomiting or diarrhea. She states her ostomy is draining are pearly. Patient states that she's been taking her Percocet, with no improvement. REVIEW OF SYSTEMS: Respiratory: No cough, no dyspnea. Cardiovascular: No chest pain, no palpitations. Gastrointestinal: As noted above Musculoskeletal: No back pain. Allergies: Coded Allergies: smallpox vaccine,chick-embryo,live (Verified Adverse Reaction, Intermediate, 01/30/19) HIGH FEVER, bupropion (Unverified Adverse Reaction, Mild, AMNESIA, 01/30/19) CAUSED LOW SODIUM Home Meds Active Scripts Ketorolac Tromethamine (KETOROLAC TROMETHAMINE) 10 Mg Tab, 10 MG PO Q6H, #20 TAB Prov:CHANO DOWNEY ACADEMIC SERVICES PROFESSIONAL 02/04/19 Oxycodone Hcl/Acetaminophen (PERCOCET 10-325 MG TABLET) 1 Each Tablet, 1 EACH PO Q6H PRN for PAIN, #20 TAB Prov:MARKOS ALVARADO 02/01/19 Amoxicillin/Pot Clav 875-125 Mg Tab (AUGMENTIN 875-125 TABLET) 1 Each Tablet, 1 TAB PO Q12H for 7 Days, #14 TAB Prov:MARKOS ALVARADO 02/01/19 Oxycodone Hcl/Acetaminophen (PERCOCET 10-325 MG TABLET) 1 Each Tablet, 1 EACH PO Q4-6H PRN for PAIN, #20 TAB Prov:CHANO DOWNEY ACADEMIC SERVICES PROFESSIONAL 01/30/19 Hydrocodone Bit/Acetaminophen (HYDROCODON-ACETAMINOPHEN 5-325) 1 Each Tablet, 1 EACH PO Q4H PRN for PAIN, #12 TAKE ONE TABLET BY MOUTH EVERY 4-6 HOURS NEEDED FOR PAIN Prov:KEVIN ZAMORA DO 01/28/19 Rivaroxaban 15 Mg (XARELTO 15 MG) 15 Mg Tablet, 15 MG PO BID for 21 Days, #42 TAB Prov:MAKROS ALVARADO 01/24/19 Hydrocodone Bit/Acetaminophen (NORCO 7.5-325 TABLET) 1 Each Tablet, 1 EACH PO Q6H PRN for PAIN, #30 TAB Prov:MARKOS ALVARADO Fred 01/19/19 Metoprolol Tartrate (METOPROLOL TARTRATE) 100 Mg Tablet, 1 TAB PO BID, #60 TAB Prov:VARGAS RIOS ACADEMIC SERVICES PROFESSIONAL 01/09/19 Reported Medications Levothyroxine Sodium (LEVOTHYROXINE SODIUM) 50 Mcg Tablet, 50 MCG PO QDAY, TAB 12/02/18 Past Medical/Surgical History Patient has a past medical history of hypertension, asthma, although disease, vaginal fistula, back pain, hypothyroidism, depression. Patient has surgical history of peripheral opacity, cataract surgery bilaterally, tonsillectomy, hysterectomy, colostomy, repair of vaginal fistula, cholecystectomy, appendectomy. Reviewed Nurses Notes: Yes Hx Smoking: Yes Smoking Status: Former Smoker Exposure to Second Hand Smoke?: No Hx Substance Use Disorder: No Hx Alcohol Use: No Constitutional Vital Sign - Last 24 Hours 02/04/19 02/04/19 02/04/19 02/04/19 18:58 18:59 19:09 19:30 Temp 98.1 Pulse 94 93 Resp 16 B/P (MAP) 113/61 113/61 (78) 113/57 (75) Pulse Ox 92 94 O2 Delivery Room Air 02/04/19 02/04/19 02/04/19 02/04/19 19:39 20:09 20:14 20:30 Pulse 90 94 B/P (MAP) 120/68 (85) Pulse Ox 90 100 100 02/04/19 02/04/19 02/04/19 20:44 21:00 21:14 Pulse 96 97 B/P (MAP) 116/31 (59) Pulse Ox 100 100 Physical Exam General Appearance: The patient is alert, has no immediate need for airway protection and no current signs of toxicity. Respiratory: Chest is non tender, lungs are clear to auscultation. Cardiac: regular rate and rhythm Gastrointestinal: Abdomen is soft and tender throughout but seems to be worse in the right lower quadrant, no masses, bowel sounds normal. Musculoskeletal: Neck: Neck is supple and non tender. Extremities have full range of motion and are non tender. Skin: No rashes or lesions. DIFFERENTIAL DIAGNOSIS: After history and physical exam differential diagnosis was considered for abdominal pain including but not limited to appendicitis, cholecystitis, gastritis and urinary tract infection. Medical Decision Making Data Points Result Diagram: 02/04/19192002/04/191920 Laboratory Hematology Test 02/04/19 19:21 Red Blood Count 4.32 M/uL (4.17-5.56) Mean Corpuscular Volume 83.6 fL (80.0-96.0) Mean Corpuscular Hemoglobin 29.8 pg (26.0-33.0) Mean Corpuscular Hemoglobin Concent 35.7 g/dL (32.0-36.0) Red Cell Distribution Width 13.9 % (11.5-14.5) Mean Platelet Volume 7.6 fL (7.2-11.1) Neutrophils (%) (Auto) 37.0 % (39.4-72.5) Lymphocytes (%) (Auto) 40.9 % (17.6-49.6) Monocytes (%) (Auto) 18.6 % (4.1-12.4) Eosinophils (%) (Auto) 2.6 % (0.4-6.7) Basophils (%) (Auto) 0.9 % (0.3-1.4) Nucleated RBC Relative Count (auto) 0.1 /100WBC Neutrophils # (Auto) 3.9 K/uL (2.0-7.4) Lymphocytes # (Auto) 4.3 K/uL (1.3-3.6) Monocytes # (Auto) 1.9 K/uL (0.3-1.0) Eosinophils # (Auto) 0.3 K/uL (0.0-0.5) Basophils # (Auto) 0.1 K/uL (0.0-0.1) Nucleated RBC Absolute Count (auto) 0.01 K/uL Peripheral Blood Smear Yes Y/N Erythrocyte Sedimentation Rate 14 mm/HOUR (0-30) Sodium Level 135 mmol/L (137-145) Potassium Level 3.5 mmol/L (3.5-5.0) Chloride Level 101 mmol/L (98-107) Carbon Dioxide Level 22 mmol/L (22-31) Blood Urea Nitrogen 12 mg/dl (7-18) Creatinine 0.80 mg/dl (0.52-1.04) Glomerular Filtration Rate Calc > 60.0 Random Glucose 105 mg/dl (75-110) Calcium Level 9.4 mg/dl (8.4-10.2) Total Bilirubin 0.7 mg/dl (0.2-1.3) Aspartate Amino Transf (AST/SGOT) 31 U/L (0-35) Alanine Aminotransferase (ALT/SGPT) 35 U/L (0-56) Alkaline Phosphatase 116 U/L (0-126) Total Protein 7.5 g/dl (6.3-8.2) Albumin 4.2 g/dl (3.5-5.0) Chemistry Test 02/04/19 19:21 White Blood Count 10.4 k/uL (4.5-11.0) Red Blood Count 4.32 M/uL (4.17-5.56) Hemoglobin 12.9 g/dL (12.0-16.0) Hematocrit 36.2 % (34.0-47.0) Mean Corpuscular Volume 83.6 fL (80.0-96.0) Mean Corpuscular Hemoglobin 29.8 pg (26.0-33.0) Mean Corpuscular Hemoglobin Concent 35.7 g/dL (32.0-36.0) Red Cell Distribution Width 13.9 % (11.5-14.5) Platelet Count 236 K/uL (150-450) Mean Platelet Volume 7.6 fL (7.2-11.1) Neutrophils (%) (Auto) 37.0 % (39.4-72.5) Lymphocytes (%) (Auto) 40.9 % (17.6-49.6) Monocytes (%) (Auto) 18.6 % (4.1-12.4) Eosinophils (%) (Auto) 2.6 % (0.4-6.7) Basophils (%) (Auto) 0.9 % (0.3-1.4) Nucleated RBC Relative Count (auto) 0.1 /100WBC Neutrophils # (Auto) 3.9 K/uL (2.0-7.4) Lymphocytes # (Auto) 4.3 K/uL (1.3-3.6) Monocytes # (Auto) 1.9 K/uL (0.3-1.0) Eosinophils # (Auto) 0.3 K/uL (0.0-0.5) Basophils # (Auto) 0.1 K/uL (0.0-0.1) Nucleated RBC Absolute Count (auto) 0.01 K/uL Peripheral Blood Smear Yes Y/N Erythrocyte Sedimentation Rate 14 mm/HOUR (0-30) Glomerular Filtration Rate Calc > 60.0 Calcium Level 9.4 mg/dl (8.4-10.2) Total Bilirubin 0.7 mg/dl (0.2-1.3) Aspartate Amino Transf (AST/SGOT) 31 U/L (0-35) Alanine Aminotransferase (ALT/SGPT) 35 U/L (0-56) Alkaline Phosphatase 116 U/L (0-126) Total Protein 7.5 g/dl (6.3-8.2) Albumin 4.2 g/dl (3.5-5.0) ED Course/Re-evaluation ED Course Patient was admitted and examined, history and physical obtained. Differential diagnoses were considered. On examination lungs are clear, heart is regular, abdomen is soft and tender diffusely, but worse in the right lower quadrant. A CBC, CMP were done. The lab results were unremarkable. I discussed the case with Dr. Alvarado, surgeon. He did come down and speak with the patient. He will go ahead and help her get arrange for follow-up with pain specialist. We did try some Toradol here in the emergency room which seemed to help. We will go ahead and discharge her home with Percocet the chart he has as well as Toradol to help with the pain. Patient is to follow-up with Dr. Alvarado as previously scheduled. Patient verbalized understanding and agreement with plan. Decision to Disposition Date: Feb 04, 2019 Decision to Disposition Time: 21:13 Depart Departure Latest Vital Signs Vital Signs Date Time Temp Pulse Resp B/P (MAP) Pulse Ox O2 Delivery O2 Flow Rate FiO2 02/04/19 21:14 97 100 02/04/19 21:00 116/31 (59) 02/04/19 18:58 98.1 16 Room Air Impression: Primary Impression: Abdominal pain Condition: Improved Disposition: HOME OR SELF-CARE Referrals: CARMEN BEE MD (PCP) New Scripts Ketorolac Tromethamine (KETOROLAC TROMETHAMINE) 10 Mg Tab 10 MG PO Q6H, #20 TAB Prov: CHANO DOWNEY ACADEMIC SERVICES PROFESSIONAL 02/04/19 Patient Instructions: Abdominal Pain (ED) Additional Instructions: Increase fluid intake. Get plenty of rest. Take your medication. You may take 2 percocet as needed for pain. Dr. Alvarado's office will call with information about pain specialist. Take the Toradol every 6 hours as needed for pain. Return to the ER if condition worsens. Problem Qualifiers Primary Impression: Abdominal pain Abdominal location: right lower quadrant Qualified Codes: R10.31 - Right lower quadrant pain CHANO DOWNEY Feb 04, 2019 19:00
[2019-02-04] MEDS ORDERED: HYDROMORPHONE HCL 1 MG/ML SYRINGE IVP ONE (19:10)
[2019-02-04 19:40] LABS: PLATELET COUNT, AUTOMATED 236 K/uL (150-450)
[2019-02-04] MEDS ORDERED: KETOROLAC 30 MG/ML VIAL IVP ONE (20:20)
[2019-02-04 21:00] VITALS: BP 116/31
[2019-02-04] MEDS ORDERED: KET10 PO (21:16)
[2019-02-04] MEDS ORDERED: KETOROLAC TROM 10 MG TAB TH PO ONE (21:20)
== END 2019-02-04 21:25 | disposition home or self-care (01) ==
LOC: ER 18:58
DX: R10.31 Right lower quadrant pain (principal)
CPT/HCPCS: 85025; 85651; 96374; 96375; 99284; J1170; J1885; 82040; 82247; 82310; 82374; 82435; 82565; 82947; 84075; 84132; 84155; 84295; 84450; 84460; 84520

== ENCOUNTER 2019-02-07 13:25 | Emergency (ER) | payer MEDICARE ==
[2018-12-25 13:58] VITALS: BMI 38.5
[~2019-02-07 13:25] MED LIST changes: +KET10 PO
[2019-02-07 13:31] VITALS: BP 150/74
[2019-02-07] MEDS ORDERED: OXYC-870 PO (17:10)
[2019-02-15] MEDS ORDERED: OXYC-870 PO (14:19)
[2019-02-21] MEDS ORDERED: OXYC-870 PO (16:05)
[2019-03-02] MEDS ORDERED: OXYC-870 PO (15:11)
== END 2019-02-07 15:04 | disposition home or self-care (01) ==
LOC: ER 13:31
DX: Z02.9 Encounter for administrative examinations, unspecified (principal)

== ENCOUNTER 2019-02-11 19:56 | Emergency (ER) | payer MEDICARE ==
[2018-12-25 13:58] VITALS: Wt 81.7 kg
[2019-02-11 20:01] VITALS: BP 147/78
--- NOTE | 2019-02-11 20:06 | ER Report ---
History and Physical Time Seen By MD: 20:03 Hx. of Stated Complaint: OUT OF PAIN MEDS. TOOK LAST PERCOCET AT 6PM, NOW OUT OF PAIN MEDS. IN SEVERE PAIN TONIGHT. HAS AN APPOINTMENT WITH DR SINGH ON . ALSO HAS NAUSEA AND VOMITING. NOT TAKING HER ZOFRAN HPI/ROS CHIEF COMPLAINT: Abdominal pain HISTORY OF PRESENT ILLNESS: 74-year-old female patient presents to the emergency room with complaint of abdominal pain. Patient states that she had surgery in December due to a colovaginal fistula. She states that she has been having significant amounts of pain since her surgery. She's been seen here in the emergency room multiple times as well as by Dr. Singh. Patient is in the process of being referred to pain management in [place]. They've not been able to get a hold of them to make an appointment. Patient and her state that she had run out of her pain medication taking her last dose this evening at 6:00. As result of that they did come to the emergency room to get more pain medication get through tonight. They do have an appointment with Dr. Singh on . Patient denies having any fevers, chills, one bout of vomiting but did believe is secondary to taking the medication on an empty stomach. Allergies: Coded Allergies: smallpox vaccine,chick-embryo,live (Verified Adverse Reaction, Intermediate, 02/11/19) HIGH FEVER, bupropion (Unverified Adverse Reaction, Mild, AMNESIA, 02/11/19) CAUSED LOW SODIUM Home Meds Active Scripts Ketorolac Tromethamine (KETOROLAC TROMETHAMINE) 10 Mg Tab, 10 MG PO Q6H, #20 TAB Prov:CHANO DOWNEY 02/11/19 Oxycodone Hcl/Acetaminophen (PERCOCET 10-325 MG TABLET) 1 Each Tablet, 2 EACH PO Q4-6H PRN for PAIN, #20 TAB Prov:CHANO DOWNEY 02/11/19 Oxycodone Hcl/Acetaminophen (PERCOCET 10-325 MG TABLET) 1 Each Tablet, 1 EACH PO Q6H PRN for PAIN, #20 TAB Prov:ALISSON VAN MD 02/07/19 Ketorolac Tromethamine (KETOROLAC TROMETHAMINE) 10 Mg Tab, 10 MG PO Q6H, #20 TAB Prov:CHANO DOWNEY COLLEGE INTERN 02/04/19 Amoxicillin/Pot Clav 875-125 Mg Tab (AUGMENTIN 875-125 TABLET) 1 Each Tablet, 1 TAB PO Q12H for 7 Days, #14 TAB Prov:MARKOS SINGH P 02/01/19 Oxycodone Hcl/Acetaminophen (PERCOCET 10-325 MG TABLET) 1 Each Tablet, 1 EACH PO Q4-6H PRN for PAIN, #20 TAB Prov:CHANO DOWNEY [employer]LE[employer]N 01/30/19 Hydrocodone Bit/Acetaminophen (HYDROCODON-ACETAMINOPHEN 5-325) 1 Each Tablet, 1 EACH PO Q4H PRN for PAIN, #12 TAKE ONE TABLET BY MOUTH EVERY 4-6 HOURS NEEDED FOR PAIN Prov:KEVIN ZAMORA DO 01/28/19 Rivaroxaban 15 Mg (XARELTO 15 MG) 15 Mg Tablet, 15 MG PO BID for 21 Days, #42 TAB Prov:MARKOS SINGH 01/24/19 Hydrocodone Bit/Acetaminophen (NORCO 7.5-325 TABLET) 1 Each Tablet, 1 EACH PO Q 6H PRN for PAIN, #30 TAB Prov:MARKOS SINGH 01/19/19 Metoprolol Tartrate (METOPROLOL TARTRATE) 100 Mg Tablet, 1 TAB PO BID, #60 TAB Prov:VARGAS RIOS [employer]LEGE INTERN 01/09/19 Reported Medications Levothyroxine Sodium (LEVOTHYROXINE SODIUM) 50 Mcg Tablet, 50 MCG PO QDAY, TAB 12/02/18 Past Medical/Surgical History Patient has a past medical history of hypertension, asthma, although disease, vaginal fistula, back pain, hypothyroidism, depression. Patient has surgical history of peripheral opacity, cataract surgery bilaterally, tonsillectomy, hysterectomy, colostomy, repair of vaginal fistula, cholecystectomy, appendectomy. Reviewed Nurses Notes: Yes Hx Smoking: Yes Smoking Status: Former Smoker Exposure to Second Hand Smoke?: No Hx Substance Use Disorder: No Hx Alcohol Use: No Constitutional Vital Sign - Last 24 Hours 02/11/19 20:01 Temp 98.2 Pulse 98 Resp 18 B/P (MAP) 147/78 Pulse Ox 92 O2 Delivery Room Air Physical Exam General Appearance: The patient is alert, has no immediate need for airway protection and no current signs of toxicity. Respiratory: Chest is non tender, lungs are clear to auscultation. Cardiac: regular rate and rhythm Gastrointestinal: Abdomen is soft and tender in bilateral lower quadrants, no masses, bowel sounds normal. Musculoskeletal: Neck: Neck is supple and non tender. Extremities have full range of motion and are non tender. Skin: No rashes or lesions. Area of dehiscence on lower abdomen appears to be healing well, there is no drainage at this time. DIFFERENTIAL DIAGNOSIS: After history and physical exam differential diagnosis was considered for postsurgical pain, pain secondary to ostomy. Medical Decision Making ED Course/Re-evaluation ED Course Patient was admitted to an exam room, history and physical were obtained. Differential diagnoses were considered. On examination patient does have some te nderness to bilateral lower quadrants. Heart is regular, lungs are clear. With the patient having this persistent pain. An appointment on with Dr. Singh we will go ahead and give her limited supply of pain medication get through until she can follow-up with Dr. Singh. She is to limit her activity by pain. She is return to the emergency room if condition worsens. Due to patient having had numerous sets of blood work done, and not having any underlying cause of the pain will go ahead and treat her in the short-term and long-term her to follow-up with Dr. Singh. Patient and her verbalized understanding and agreement. Decision to Disposition Date: Feb 11, 2019 Decision to Disposition Time: 20:16 Depart Departure Latest Vital Signs Vital Signs Date Time Temp Pulse Resp B/P (MAP) Pulse Ox O2 Delivery O2 Flow Rate FiO2 02/11/19 20:01 98.2 98 18 147/78 92 Room Air Impression: Primary Impression: Abdominal pain Condition: Improved Disposition: HOME OR SELF-CARE Referrals: CARMEN BEE MD (PCP) New Scripts Ketorolac Tromethamine (KETOROLAC TROMETHAMINE) 10 Mg Tab 10 MG PO Q6H, #20 TAB Prov: CHANO DOWNEY 02/11/19 Oxycodone Hcl/Acetaminophen (PERCOCET 10-325 MG TABLET) 1 Each Tablet 2 EACH PO Q4-6H PRN for PAIN, #20 TAB Prov: CHANO DOWNEY 02/11/19 Patient Instructions: Abdominal Pain (ED) Additional Instructions: Limit activity by pain. Get plenty of rest. Follow up with Dr. Singh as scheduled. Return to the ER if condition worsens. Continue with your current medications. Take medications as prescribed. Problem Qualifiers Primary Impression: Abdominal pain Abdominal location: lower abdomen, unspecified Qualified Codes: R10.30 - Lower abdominal pain, unspecified CHANO DOWNEY Feb 11, 2019 20:06
[2019-02-11] MEDS ORDERED: oxyCODONE HCL 5 MG CAP PO ONE (20:15)
[2019-02-11] MEDS ORDERED: oxyCODON/ACET (*)5/325MG (CII) 1 TAB TAB PO ONE (20:15)
[2019-02-11] MEDS ORDERED: OXYC-870 PO (20:21)
[2019-02-11] MEDS ORDERED: KET10 PO (20:21)
[2019-02-15] MEDS ORDERED: OXYC-870 PO (14:19)
== END 2019-02-11 20:34 | disposition home or self-care (01) ==
LOC: ER 20:10
DX: R10.30 Lower abdominal pain, unspecified (principal); E03.9 Hypothyroidism, unspecified; I10 Essential (primary) hypertension; J45.909 Unspecified asthma, uncomplicated; F32.9 Major depressive disorder, single episode, unspecified; Z87.891 Personal history of nicotine dependence; Z79.899 Other long term (current) drug therapy
CPT/HCPCS: 99283; A9270

== ENCOUNTER 2019-03-09 00:39 | Day surgery (SDC) | payer MEDICARE ==
[2018-12-25 13:58] VITALS: Ht 154.9 cm; Wt 80.3 kg
[~2019-03-09] VITALS: Ht 154.9 cm; Wt 80.3 kg
[2019-03-09] VITALS (8 sets, daily range): BP systolic 109–135; BP diastolic 61–85
[~2019-03-09 00:39] MED LIST changes: +BUPR1PAT9 TD; +GABA-549 PO; +LIDOCAINE/SOD BICARB 8.4% SYR ID ONE
[2019-03-09] MEDS ORDERED: LIDOCAINE/SOD BICARB 8.4% SYR ONE (06:33)
--- NOTE | 2019-03-09 08:45 | Short(Outpt) Discharge Summary ---
Discharge Summary Reason for Hosp/Final Diag: (1) Colovaginal fistula Status: Resolved Hospital Course & Plan: s/p diverting ileostomy. presented for sigmoidoscopy. she tolerated the procedure well and will be discharged after barium enema. Departure Discharge to: Home Discharge Instructions Home Meds Reported Medications Buprenorphine (BUTRANS) 1 Each Patch.tdwk, 5 MCG TD Q7DAY 03/08/19 Gabapentin (GABAPENTIN) 300 Mg Capsule, 300 MG PO BID, CAPSULE 03/07/19 Levothyroxine Sodium (LEVOTHYROXINE SODIUM) 50 Mcg Tablet, 50 MCG PO QDAY, TAB 12/02/18 Discontinued Scripts Oxycodone Hcl/Acetaminophen (PERCOCET 10-325 MG TABLET) 1 Each Tablet, 1 EACH PO Q8H PRN for PAIN, #20 TAB Prov:MARKOS SINGH 03/02/19 Oxycodone Hcl/Acetaminophen (PERCOCET 10-325 MG TABLET) 1 Each Tablet, 1 EACH PO Q8H PRN for PAIN, #30 TAB Prov:MARKOS SINGH 02/21/19 Oxycodone Hcl/Acetaminophen (PERCOCET 10-325 MG TABLET) 1 Each Tablet, 1 EACH PO Q6H PRN for PAIN, #20 TAB Prov:MARKOS SINGH 02/15/19 Ketorolac Tromethamine (KETOROLAC TROMETHAMINE) 10 Mg Tab, 10 MG PO Q6H, #20 TAB Prov:CHANO DOWNEY 02/11/19 Oxycodone Hcl/Acetaminophen (PERCOCET 10-325 MG TABLET) 1 Each Tablet, 2 EACH PO Q4-6H PRN for PAIN, #20 TAB Prov:CHANO DOWNEY 02/11/19 Oxycodone Hcl/Acetaminophen (PERCOCET 10-325 MG TABLET) 1 Each Tablet, 1 EACH PO Q6H PRN for PAIN, #20 TAB Prov:ALSISON VAN MD 02/07/19 Ketorolac Tromethamine (KETOROLAC TROMETHAMINE) 10 Mg Tab, 10 MG PO Q6H, #20 TAB Prov:CHANO DOWNEY 02/04/19 Oxycodone Hcl/Acetaminophen (PERCOCET 10-325 MG TABLET) 1 Each Tablet, 1 EACH PO Q4-6H PRN for PAIN, #20 TAB Prov:CHANO DOWNEYP 01/30/19 Hydrocodone Bit/Acetaminophen (HYDROCODON-ACETAMINOPHEN 5-325) 1 Each Tablet, 1 EACH PO Q4H PRN for PAIN, #12 TAKE ONE TABLET BY MOUTH EVERY 4-6 HOURS NEEDED FOR PAIN Prov:KEVIN ZAMORA DO 01/28/19 Rivaroxaban 15 Mg (XARELTO 15 MG) 15 Mg Tablet, 15 MG PO BID for 21 Days, #42 TAB Prov:MARKOS SINGH 01/24/19 Hydrocodone Bit/Acetaminophen (NORCO 7.5-325 TABLET) 1 Each Tablet, 1 EACH PO Q6H PRN for PAIN, #30 TAB Prov:MARKOS SINGH 01/19/19 Metoprolol Tartrate (METOPROLOL TARTRATE) 100 Mg Tablet, 1 TAB PO BID, #60 TAB Prov:VARGAS RIOS CONSULTING PSYCHIATRIST 01/09/19 Diet: Regular Activity: As Tolerated Special Instructions: dishcarge after barium enema. we will call you with enema results. MARKOS SINGH Mar 09, 2019 08:45
--- NOTE | 2019-03-09 09:43 | NUR ---
pt. sleeping. oxygen desaturation to high 80s. placed on 2L.
[2019-03-09] MEDS ORDERED: NORMOSOL R SOLN(*) 1000 ML BAG 1,000 ML IV PRN (10:45)
== END 2019-03-09 10:31 | disposition home or self-care (01) ==
LOC: OR 00:39
PROVIDERS: ATTEND Surgery
DX: K63.89 Other specified diseases of intestine (principal)